=== PATIENT | male | born 1965 | race Two or more races ===

== ENCOUNTER 2021-12-24 12:13 | Emergency (ER) | payer OTHER, SELFPAY ==
--- NOTE | ~2021-12-24 | XR_ITS ---
EXAMINATION: XR FOOT, RIGHT CLINICAL INFORMATION: Pain wound COMPARISON: None TECHNIQUE: AP, lateral, and oblique views of the right foot. FINDINGS: No acute visible fracture or dislocation. Multi joint degenerative changes greatest at the first metatarsal phalangeal joint with joint space narrowing, subchondral cystic changes, sclerosis, and periarticular osteophyte formation. Joint spaces and alignment are otherwise maintained. Soft tissues are unremarkable. XR/XR foot RT min 3V IMPRESSION: 1. No acute visible fracture or dislocation. 2. Multi joint degenerative changes greatest at the first metatarsal phalangeal joint.
[2021-12-24 14:04] VITALS: BP 179/101; PULSE 76; RESP 18; TEMP 37; O2SAT 96; BMI 66.2
--- NOTE | 2021-12-24 15:05 | ED.WOUNDLAC ---
HPI - Wound/Laceration General Chief Complaint: Wound/Laceration Stated Complaint: feet infection Time Seen by Provider: 12/24/21 14:58 Source: patient Mode of arrival: ambulatory Limitations: no limitations History of Present Illness HPI narrative: Patient presents to the emergency department for evaluation of pain and wound to his right foot x2 days. He states that while he was at work with his shoe on he began to notice pain, when he took his shoe off he noticed that it was red and swollen. There is a wound to the base of his 3rd toe. He denies any history of diabetes. He states that often when he gets any type of infection to his feet or hands it is typical to get very swollen and red. Denies fevers, chills, numbness or tingling to the foot or leg, denies known injury to the foot, denies known bite. Related Data Previous Rx's Medication Instructions Recorded tamsulosin 0.4 mg capsule 0.4 mg PO BEDTIME 90 Days #90 cap 12/07/21 cephalexin 500 mg capsule 500 mg PO QID 7 Days #28 cap 12/24/21 doxycycline hyclate 100 mg tablet 100 mg PO BID 7 Days #14 tab 12/24/21 Allergies Allergy/AdvReac Type Severity Reaction Status Date / Time No Known Allergies Allergy Verified 12/07/21 09:10 Review of Systems Review of Systems: Constitutional: No weight loss, fever, chills, weakness or fatigue. Skin: Positive wound on foot Cardiovascular: No chest pain, chest pressure or chest discomfort. No palpitations or pedal edema. Respiratory: No shortness of breath, cough or sputum production. Gastrointestinal: No anorexia, nausea, vomiting or diarrhea. No abdominal pain Genitourinary: No burning micturition. No urinary frequency or incontinence. Musculoskeletal: Positive foot pain Neurologic: No numbness. No tingling. Sensation is normal. Yes all other systems are reviewed and are negative [facility] Past Medical History Attestation statement: The following information was validated with the patient. Source: old records reviewed Medical History BPH (benign prostatic hyperplasia) Cataract Colon polyps History of hypertension Overweight (BMI 25.0-29.9) Renal calculi Surgical History H/O lithotripsy Family History Family History Mother Mental health disorder Father Hypertension Dialysis complication Social History Social History Housing: Apartment Alcohol intake: current Alcohol intake frequency: holidays/special occasions only Alcohol type: beer and hard liquor Patient Tobacco Use Status: Former Tobacco user Tobacco use type: Cigarette e-Cigarette/Vaping Use: Never Used Second Hand Smoke Exposure: No Advance Directives: No Advance Directives Information Provided: No service: No Current occupational status: employed Current occupational exposures/hazards: No Cognitive needs: No Hearing needs: No Vision needs: Yes Physical Exam Vital Signs: Vital Signs: Last Vital Signs Temp 98.6 F 12/24/21 14:04 Pulse 76 12/24/21 14:04 Resp 18 12/24/21 14:04 BP 172/87 H 12/24/21 16:09 Pulse Ox 96 12/24/21 14:04 BMI result Body Mass Index 66.2 Vital signs have been reviewed and appeared to be correct. Hypertensive? Heart rate normal.? Respiration rate normal. Temperature normal.? Oxygen saturation normal. Appearance: Alert.?Oriented to person, place and time. No acute distress.?Normal affect. Eyes: Pupils equal, round and reactive to light.? ENT: Pharynx normal.?? Neck: Normal inspection.? Neck supple.?? CVS: Heart sounds normal. Normal heart rate and rhythm.? Pulses normal.?? Respiratory: No respiratory distress.? Lung sounds clear to auscultation bilaterally?? Abdomen: Soft and non-tender. Normoactive bowel sounds. No pulsatile mass.?? Skin: Skin warm and dry.? Normal skin color.? Normal skin turgor.?? Extremities: No lower extremity edema.? No calf ttp? right dorsal foot, base of 3rd digit over metatarsal 0.5 cm wound, surrounding erythema, skin tissue between 2nd and 3rd digit is macerated. Neuro: Moves all extremities spontaneously. Sensation intact bilaterally. CN II-XII intact. No focal neuro deficits. Ambulates with normal steady gait. Course Course Course Narrative: Patient is a 56-year-old male with a past medical history of hypertension, BPH, cataracts, and renal calculi. He presents emergency department for evaluation of pain and a wound on his right foot. X-ray obtained reveals no acute osseous abnormality, not consistent with osteomyelitis at this time. No history of diabetes. Not consistent with septic arthritis. He is well-appearing, ambulatory with a steady gait, hemodynamically stable. Physical exam concerning for cellulitis surrounding wound, discussed this with patient, advised treatment with antibiotic will cover with doxycycline and Keflex. Discussed reasons to return back to the emergency department, advised to follow-up with primary care provider within 5-7 days to assure that this is healing. MDM - Wound/Laceration Medical Records Attestation: I reviewed the patient's medical records. Imaging Data XR foot: Radiologist's impression: FINDINGS: No acute visible fracture or dislocation. Multi joint degenerative changes greatest at the first metatarsal phalangeal joint with joint space narrowing, subchondral cystic changes, sclerosis, and periarticular osteophyte formation. Joint spaces and alignment are otherwise maintained. Soft tissues are unremarkable.? XR/XR foot RT min 3V IMPRESSION: 1.? No acute visible fracture or dislocation. 2.? Multi joint degenerative changes greatest at the first metatarsal phalangeal joint. Discharge Plan Discharge Clinical Impression: Cellulitis Patient Disposition: Home, Self-Care Instructions: Cellulitis (ED) Additional Instructions: You have been given a new prescription for antibiotics doxycycline and Keflex for treatment of the infection on your foot. Please complete the entire course of these antibiotics. Contact your primary care provider to schedule a follow-up visit within 5-7 days to ensure that this is improving. You should return to the emergency department with any new or worsening symptoms or concerns. If the redness and swelling becomes worse, you develop fevers or shaking chills, numbness or tingling to your foot you should come back to the emergency department. Prescriptions: New doxycycline hyclate 100 mg tablet 100 mg PO BID 7 Days Qty: 14 0RF cephalexin 500 mg capsule 500 mg PO QID 7 Days Qty: 28 0RF No Action tamsulosin 0.4 mg capsule 0.4 mg PO BEDTIME 90 Days Qty: 90 1RF Referrals: Isamar Diaz MD [Primary Care Provider] - 5 days Stand Alone Forms: Work/School Release
[2021-12-24] MEDS: Ibuprofen 600 MG TABLET PO (16:02)
[2021-12-24] MEDS: Acetaminophen 325 MG TABLET 975 MG PO (16:02)
[2021-12-24 16:09] VITALS: BP 172/87
== END 2021-12-24 16:50 | disposition home or self-care (01) ==
PROVIDERS: Emergency Provider Emergency Medicine; PCP Internal Medicine
DX: L03.115 Cellulitis of right lower limb (principal); S91.301A Unspecified open wound, right foot, initial encounter; I10 Essential (primary) hypertension; X58.XXXA Exposure to other specified factors, initial encounter; Y93.9 Activity, unspecified; Y92.9 Unspecified place or not applicable; Y99.9 Unspecified external cause status
CPT/HCPCS: 73630; 99283

== ENCOUNTER 2022-01-20 15:05 | Outpatient (REF) | payer OTHER, SELFPAY ==
--- NOTE | ~2022-01-20 | US_ITS ---
EXAMINATION: US RETROPERITONEAL LIMITED (RENAL ONLY) CLINICAL INFORMATION: Calculus of kidney. COMPARISON: None TECHNIQUE: Real-time imaging of the kidneys. FINDINGS: RIGHT KIDNEY: 11.0 x 5.5 x 5.5 cm (SAG x AP x TRV). The kidney is normal in size, contour, and echogenicity. Renal cortical thickness is normal. No calculi or focal parenchymal lesions. No hydronephrosis. There is punctate calcification with no twinkle artifact in the upper pole. It measures 0.5 x 0.3 cm. LEFT KIDNEY: 11.0 x 5.8 x 5.2 cm (SAG x AP x TRV). The kidney is normal in size, contour, and echogenicity. Renal cortical thickness is normal. No calculi or focal parenchymal lesions. No hydronephrosis. There is punctate calcification seen with no twinkle. US/US renal BI IMPRESSION: Bilateral punctate renal calcifications. No hydronephrosis.
== END 2022-01-20 15:06 | disposition home or self-care (01) ==
LOC: HO.US 15:05
PROVIDERS: PCP Internal Medicine; Visit Provider Internal Medicine
DX: N20.0 Calculus of kidney (principal)
CPT/HCPCS: 76775

== ENCOUNTER → 2022-02-05 08:56 | Outpatient (REF) | payer OTHER, SELFPAY ==
--- NOTE | 2022-02-05 09:05 | ECG_ITS ---
Test Reason : PREOP Blood Pressure : / mmHG Vent. Rate : 068 BPM Atrial Rate : 068 BPM P-R Int : 144 ms QRS Dur : 088 ms QT Int : 390 ms P-R-T Axes : 077 057 043 degrees QTc Int : 414 ms Sinus rhythm with occasional Premature ventricular complexes Otherwise normal ECG No previous ECGs available Referred By: Isamar White Electronically Signed By:TYLER LAMAR MD
[2022-02-05 09:22] LABS: MANUAL DIFF FLAG NO
[2022-02-05 09:31] LABS: Basophils Percent Auto 0.4 % (0-2); Eosinophils Absolute Auto 0.2 X10*3/uL (0.0-0.4); Eosinophils Percent Auto 1.8 % (0-4); Hematocrit 44.6 % (42.0-52.0); Hemoglobin 14.9 g/dl (14.0-18.0); Imm Gran Abs Auto 0.04 X10*3/uL (0.00-0.03); Imm Gran Pct Auto 0.4 % (0.0-0.4); Lymphocytes Absolute Auto 2.2 X10*3/uL (1.2-4.9); Lymphocytes Percent Auto 21.9 % (20-40); Mean Corpuscular HGB Conc 33.4 g/dl (31.0-36.0); Mean Corpuscular Hemoglobin 29.3 pg (27.0-33.0); Mean Corpuscular Volume 87.6 fL (80.0-98.0); Mean Platelet Volume 9.4 fL (9.4-12.4); Monocytes Absolute Auto 0.8 X10*3/uL (0.1-1.2); Monocytes Percent Auto 7.6 % (2-11); Neutrophils Absolute Auto 6.7 x10*3/uL (2.0-8.3); Neutrophils Percent Auto 67.9 % (45-73); Platelet Count 281 X10*3/uL (160-400); Red Blood Count 5.09 X10*6/uL (4.60-5.80); Red Cell Distribution Width 12.5 % (11.0-16.0); White Blood Count 9.8 X10*3/uL (4.8-10.8)
[2022-02-05 10:14] LABS: Alanine Aminotransferase 31 U/L (0-40); Albumin Level 4.1 g/dL (3.5-5.0); Alkaline Phosphatase 75 U/L (39-117); Anion Gap 11 (12-20); Aspartate Amino Transferase 24 U/L (5-37); Bilirubin Total 0.4 mg/dL (0.0-1.0); Blood Urea Nitrogen 10 mg/dL (9-16); Calcium 8.9 mg/dL (8.4-10.2); Carbon Dioxide 23 mmol/L (22-29); Chloride 106 mmol/L (96-108); Cholesterol 156 mg/dL; Estimated Glomerular Filt Rate > 60; Glucose Fasting 88 mg/dL (60-99); HDL Cholesterol 43 mg/dL; LDL Cholesterol Calculated 101 mg/dl; Potassium 4.1 mmol/L (3.3-5.1); Sodium 136 mmol/L (135-145); Total Protein 7.2 g/dL (6.5-8.0); Triglycerides 61 mg/dL
[2022-02-05 10:37] LABS: Thyroid Stimulating Hormone 1.03 uIU/mL (0.32-4.0)
== END ==
LOC: HO.CARD 08:56
PROVIDERS: PCP Internal Medicine; Visit Provider Internal Medicine
DX: D64.9 Anemia, unspecified (principal); E66.3 Overweight; Z86.79 Personal history of other diseases of the circulatory system
CPT/HCPCS: 36415; 80053; 80061; 84443; 85025; 93005

== ENCOUNTER → 2022-09-07 15:23 | Outpatient (BNVA) | payer OTHER, SELFPAY | PROVIDERS: PCP Internal Medicine; Visit Provider Urology | DX: N40.0 Benign prostatic hyperplasia without lower urinary tract symptoms (principal) | CPT/HCPCS: 51798; 99202 ==

== ENCOUNTER 2022-09-14 09:56 | Day surgery (SDC) | payer OTHER, SELFPAY ==
[2022-09-14 10:10] VITALS: BMI 32.5
[2022-09-14] MEDS: Lactated Ringers 1,000 ML 50 ML IVCONT (10:17)
--- NOTE | 2022-09-14 11:19 | P.CONAN_ITS ---
[facility] Active Problems Active Problems: All Active Problems (Updated 08/26/22 @ 13:49 by Isamar White MD) Pre-operative clearance (Acute) Physical exam (Acute) Essential hypertension (Acute) Screen for colon cancer (Acute) Mild recurrent major depression (Acute) Obese (Acute) BPH (benign prostatic hyperplasia) (Acute) Cataract (Acute) Renal calculi (Acute) Colon polyps (Acute) Overweight (BMI 25.0-29.9) (Acute) Past Medical History Medical History BPH (benign prostatic hyperplasia) Cataract Colon polyps History of hypertension Overweight (BMI 25.0-29.9) Renal calculi Family History Family History Mother Mental health disorder Father Hypertension Dialysis complication Family history of problems with anesthesia: No Surgical History Surgical History H/O colonoscopy H/O lithotripsy Social History Social History Housing: Apartment Alcohol intake: current Alcohol intake frequency: holidays/special occasions only Alcohol type: beer and hard liquor Patient Tobacco Use Status: Former Tobacco user Tobacco use type: Cigarette e-Cigarette/Vaping Use: Never Used Second Hand Smoke Exposure: No Substance Use Frequency: Daily Are you DNR?: No Advance Directives: No Advance Directives Information Provided: Yes Nutrition Risks: No Nutritional Risk service: No Current occupational status: employed Current occupational exposures/hazards: No Cognitive needs: No Hearing needs: No Vision needs: Yes Meds Allergies Allergy/AdvReac Type Severity Reaction Status Date / Time No Known Allergies Allergy Verified 08/26/22 13:36 Active Medications: Current Medications Lactated Ringer's (Lr) 1,000 mls @ 50 mls/hr IVCONT .Q20H GEGE Last Admin: 09/14/22 10:17 Dose: 50 mls/hr Exam Exam Date and Time: September 14, 2022 1119 Height,Weight and Vital Signs: Height 5 ft 4 in Weight 86.183 kg Airway Mallampati Class: II TM Dist: >3cm Neck ROM: Full Heart: RRR Lungs: CTA Assessment and Plan Final Anesthetic Review Family History of Problems with Anesthesia: No ASA Class: II Final Preanesthetic Review: Meds/Deongs Chart Reviewed and Consent Obtained/Reviewed Patient Risk: Low Procedure Risk: Low Anesthetic Plan Anesthetic Plan: MAC: Disposition: Standard PACU
[2022-09-14 11:29] VITALS: BP 116/64; PULSE 76; RESP 18; TEMP 36.4; O2SAT 95
--- NOTE | 2022-09-14 11:30 | PC.NURSE ---
Many attempts were completed for IV access by RN's and Dr. Al. Dr. Cardenas placed the IV via ultrasound at bedside. Patient stated that this is normal for him, my cataract surgery was cancelled in February after they tried 20 times. Patient educated to inform hospital staff that ultrasound was used to gain IV access today.
--- NOTE | 2022-09-14 11:36 | MHC.SHP ---
Pre-Procedural Eval Section A Date of Service: 09/14/22 Section B Chief Complaint: screening Details of Present Illness: see H&P no changes Relevant Family History (Specify if Yes): No Relevant Social History: None Present Medications: see Short Stay Collaborative assessment Medical History: No relevant PMH History of Previous Operations: No relevant previous surgery Allergies: Allergies Allergy/AdvReac Type Severity Reaction Status Date / Time No Known Allergies Allergy Verified 08/26/22 13:36 Review of Systems Sugical H&P ROS: Negative: Constitution, Cardiovascular, Respiratory, Neurological, Psychiatric, Hem-Onc, Allergic/Immunologic, Gastrointestinal, Genitourinary, Musculoskeletal, Integumentary, Endocrine and Eyes/Ears/Nose/Throat Exam Surgical H&P Exam: Normal: HEENT, Normal: Heart, Normal: Lungs, Normal: Extremities, Normal: Abdomen, Normal: Skin and Normal: Neurological Plan Diagnosis/Plan: Unchanged I have reviewed the history and physical and performed a pertinent physical examination on my patient. No changes have occurred unless specified. Time Spent With Patient Time: Total time managing care of this patient today ____ minutes.
--- NOTE | 2022-09-14 11:57 | HO.ANESPROP2 ---
[facility] Active Problems Active Problems: All Active Problems (Updated 08/26/22 @ 13:49 by Isamar White MD) Pre-operative clearance (Acute) Physical exam (Acute) Essential hypertension (Acute) Screen for colon cancer (Acute) Mild recurrent major depression (Acute) Obese (Acute) BPH (benign prostatic hyperplasia) (Acute) Cataract (Acute) Renal calculi (Acute) Colon polyps (Acute) Overweight (BMI 25.0-29.9) (Acute) Past Medical History Medical History BPH (benign prostatic hyperplasia) Cataract Colon polyps History of hypertension Overweight (BMI 25.0-29.9) Renal calculi Family History Family History Mother Mental health disorder Father Hypertension Dialysis complication Family history of problems with anesthesia: No Surgical History Surgical History H/O colonoscopy H/O lithotripsy Social History Social History Housing: Apartment Alcohol intake: current Alcohol intake frequency: holidays/special occasions only Alcohol type: beer and hard liquor Patient Tobacco Use Status: Former Tobacco user Tobacco use type: Cigarette e-Cigarette/Vaping Use: Never Used Second Hand Smoke Exposure: No Substance Use Frequency: Daily Are you DNR?: No Advance Directives: No Advance Directives Information Provided: Yes Nutrition Risks: No Nutritional Risk service: No Current occupational status: employed Current occupational exposures/hazards: No Cognitive needs: No Hearing needs: No Vision needs: Yes Meds Allergies Allergy/AdvReac Type Severity Reaction Status Date / Time No Known Allergies Allergy Verified 08/26/22 13:36 Active Medications: Current Medications Lactated Ringer's (Lr) 1,000 mls @ 50 mls/hr IVCONT .Q20H GEGE Last Admin: 09/14/22 10:17 Dose: 50 mls/hr Exam Exam Date and Time: September 14, 2022 1157 Height,Weight and Vital Signs: Height 5 ft 4 in Weight 86.183 kg Last Vital Signs Temp 97.5 F 09/14/22 11:29 Pulse 76 09/14/22 11:29 Resp 18 09/14/22 11:29 BP 116/64 09/14/22 11:29 Pulse Ox 95 09/14/22 11:29 O2 Del Method 09/14/22 11:29 Airway Mallampati Class: III TM Dist: >3cm Assessment and Plan Final Anesthetic Review Family History of Problems with Anesthesia: No ASA Class: II Final Preanesthetic Review: Meds/Allgs Chart Reviewed and Consent Obtained/Reviewed Patient Risk: Low Procedure Risk: Low Anesthetic Plan Anesthetic Plan: MAC: Disposition: Standard PACU
--- NOTE | 2022-09-14 12:06 | PM.OP ---
Brief Operative Note Date of Service: 09/14/22 Pre-op diagnosis: screening Post-op diagnosis: same Surgeon: Scott Yeboah Anesthesia: MAC Was an Resource Development Manager used for this Procedure?: No Estimated blood loss (mL): 2 Pathology: other Condition: stable Disposition: PACU
[2022-09-14 12:15] VITALS: BP 90/37; PULSE 86; RESP 16; TEMP 36.9; O2SAT 96
--- NOTE | 2022-09-14 12:20 | HO.POSTANES ---
Post Anesthesia Evaluation Post Anesthesia Evaluation Vital Signs: Vital Signs Temp Pulse Resp BP Pulse Ox O2 Del Method 09/14/22 11:29 97.5 F 76 18 116/64 95 Room Air Anesthesia: Monitored Mental Status: Awake Pain Control: Satisfactory Nausea/Vomiting: None Hydration: Adequate Anesthesia-Related Issues: No Anes. Related Issues
[2022-09-14 12:30] VITALS: BP 104/48; PULSE 71; RESP 16; O2SAT 96
[2022-09-14 12:45] VITALS: BP 110/59; PULSE 62; RESP 16; TEMP 36.6; O2SAT 95
--- NOTE | 2022-09-14 13:20 | PC.NURSE ---
Lidocaine was pulled from [facility]. Dr. Al used it to numb area SQ prior to IV insertion attempts by Dr. Al. Dr. Cardenas given leftover in bottle by author after ultrasound guided IV insertion.
--- NOTE | 2022-09-14 20:37 | OP_ITS ---
SURGEON: Scott Yeboah MD INDICATIONS: Colon cancer screening and prior history of adenomatous colon polyps. PREOPERATIVE DIAGNOSIS: POSTOPERATIVE DIAGNOSIS: PROCEDURE PERFORMED: Colonoscopy to the terminal ileum with biopsy. ESTIMATED BLOOD LOSS: COMPLICATIONS: ANESTHESIA: Monitored anesthesia care. ASSISTANTS: SPECIMENS: DESCRIPTION OF PROCEDURE: A history and physical was performed. The risks and benefits of the procedure were explained to the patient. Informed consent was obtained. The patient was placed in the left lateral decubitus position. A digital rectal exam was performed and it was found to be normal. The Olympus pediatric video colonoscope introduced into the rectum and advanced to the cecum without difficulty. The cecum was identified by translumination, palpation, and identification of the ileocecal valve. Examination was performed. The scope was removed. He tolerated the procedure well and was returned to the recovery area in stable condition. The procedure was performed on 09/14/2022. FINDINGS: The terminal ileum was examined and appeared normal. The visualized colonic mucosa was normal. The quality of the prep was good. In the cecum, was a less than 5 mm sessile polyp which was removed with a biopsy forceps. No other polyps were identified, and there was mild sigmoid diverticulosis. Retroflexed examination was normal. There was scattered diverticulosis throughout the colon. IMPRESSION: Colon polyp. RECOMMENDATIONS: Followup with biopsy results. MD DIOGO Kern/MELISA / [id number] MTDD
== END 2022-09-14 13:12 | disposition home or self-care (01) ==
PROVIDERS: PCP Internal Medicine; Visit Provider Internal Medicine Gastroenterology
PROC: 0DJD8ZZ Inspection of Lower Intestinal Tract, Via Natural or Artificial Opening Endoscopic (ICD-10-PCS; CPT 45378; principal; 2022-09-14 11:00)
DX: Z12.11 Encounter for screening for malignant neoplasm of colon (principal); Z86.010 Personal history of colon polyps; D12.0 Benign neoplasm of cecum; K57.30 Diverticulosis of large intestine without perforation or abscess without bleeding; K21.9 Gastro-esophageal reflux disease without esophagitis; N40.0 Benign prostatic hyperplasia without lower urinary tract symptoms; I10 Essential (primary) hypertension; F32.A Depression, unspecified; Z79.899 Other long term (current) drug therapy; Z87.442 Personal history of urinary calculi; Z87.891 Personal history of nicotine dependence
CPT/HCPCS: 45380; 88305

== ENCOUNTER 2022-10-18 12:49 | Outpatient (REF) | payer OTHER, SELFPAY ==
--- NOTE | ~2022-10-18 | US_ITS ---
EXAMINATION: US PELVIS LIMITED (BLADDER) CLINICAL INFORMATION: Poor urinary stream. COMPARISON: Ultrasound renal 01/20/2022. TECHNIQUE: Real-time imaging of the bladder. FINDINGS: BLADDER: Well distended and normal. Bilateral ureteral jets are demonstrated. Prevoid bladder volume is 249.8 mL. Postvoid bladder volume is 14.0 mL. Prostate volume is 27 mL. US/US bladder IMPRESSION: Post void volume of 14 mL. No discrete focal urinary bladder abnormality.
== END 2022-10-18 12:50 | disposition home or self-care (01) ==
LOC: HO.US 12:49
PROVIDERS: PCP Internal Medicine; Visit Provider Urology
DX: N40.0 Benign prostatic hyperplasia without lower urinary tract symptoms (principal); R39.12 Poor urinary stream
CPT/HCPCS: 76857

== ENCOUNTER → 2022-11-02 14:40 | Outpatient (REF) | payer OTHER, SELFPAY | LOC: HO.SL 14:40 | PROVIDERS: PCP Internal Medicine; Visit Provider Internal Medicine | DX: G47.33 Obstructive sleep apnea (adult) (pediatric) (principal) | CPT/HCPCS: 95806 ==

== ENCOUNTER → 2022-11-09 15:02 | Outpatient (BNVA) | payer OTHER, SELFPAY | PROVIDERS: PCP Internal Medicine; Visit Provider Urology | DX: N40.1 Benign prostatic hyperplasia with lower urinary tract symptoms (principal); R35.1 Nocturia | CPT/HCPCS: 52000; 99212 ==

== ENCOUNTER 2022-12-22 19:39 | Emergency (ER) | payer OTHER, SELFPAY ==
[2022-12-22 19:48] VITALS: BP 194/116; PULSE 84; RESP 18; O2SAT 94; BMI 32.2
--- NOTE | 2022-12-22 19:48 | ED.GENADULT ---
HPI - General Adult General Chief complaint: ETOH/Substance Use Stated complaint: narcotic use? Time Seen by Provider: 12/22/22 22:24 Related Data Previous Rx's Medication Instructions Recorded tamsulosin 0.4 mg capsule 0.4 mg PO BEDTIME 90 days #90 caps 06/05/22 bupropion HCl 150 mg 24 hr tablet, 150 mg PO QAM 90 days #90 tabs 08/26/22 extended release doxazosin 8 mg tablet 8 mg PO BEDTIME 30 days #30 tabs 09/07/22 finasteride 5 mg tablet 5 mg PO DAILY 30 days #30 tabs 09/07/22 lisinopril 20 mg tablet 20 mg PO DAILY 90 days #90 tabs 09/11/22 blood pressure monitor #1 ea 09/12/22 CPAP (CPAP Machine/Device) #1 ea 11/12/22 Allergies Allergy/AdvReac Type Severity Reaction Status Date / Time No Known Allergies Allergy Verified 11/09/22 15:25 PMFSH Past Medical History Medical History BPH (benign prostatic hyperplasia) Cataract Colon polyps History of hypertension Overweight (BMI 25.0-29.9) Renal calculi Surgical History H/O colonoscopy H/O lithotripsy Family History Family History Mother Mental health disorder Father Hypertension Dialysis complication Social History Social History Housing: Apartment Alcohol intake: never Patient Tobacco Use Status: Former Tobacco user Tobacco use type: Cigarette e-Cigarette/Vaping Use: Never Used Second Hand Smoke Exposure: No Use of substances other than those prescribed or required for medical reasons: Yes Substance Use Type: Opiates Substance Use Frequency: Recent Binge Last Used Substance: Just Prior to Admission Any prior treatment program specific to substance use: No Advance Directives: No Advance Directives Information Provided: Yes service: No Current occupational status: employed Current occupational exposures/hazards: No Cognitive needs: No Hearing needs: No Vision needs: Yes Physical Exam ED Vital Signs: BMI result Body Mass Index 32.2 Course Course Course Narrative: RME - 57 y/o male with history of obesity, JULIA, depression, BPH, HTN who presents to the ER feeling like he is going to after he used a small amount of a baggie of drugs he found on the street. He feels dizzy, weak, with a small amount of chest pain. He arrives to the ER diaphoretic and appears unwell. He is AAO x4. Plan: EKG, labs, to go back to treatment room now for monitoring Reevaluation(s) Reevaluation #1: see Dr. Weinberg's note for full evaluation and treatment Medical Decision Making Lab Data 12/22/22 20:15 12/22/22 20:15 Labs: Lab Results 12/22/22 12/22/22 12/22/22 Range/Units 20:15 20:15 20:15 WBC 16.1 H (4.8-10.8) X10*3/uL RBC 5.08 (4.60-5.80) X10*6/uL Hgb 15.0 (14.0-18.0) g/dl Hct 44.4 (42.0-52.0) % MCV 87.4 (80.0-98.0) fL MCH 29.5 (27.0-33.0) pg MCHC 33.8 (31.0-36.0) g/dl RDW 12.5 (11.0-16.0) % Plt Count 297 (160-400) X10*3/uL MPV 9.1 L (9.4-12.4) fL Immature Gran % (Auto) 0.6 H (0.0-0.4) % Neut % (Auto) 69.6 (45-73) % Lymph % (Auto) 21.1 (20-40) % [place] % (Auto) 6.8 (2-11) % Eos % (Auto) 1.4 (0-4) % Baso % (Auto) 0.5 (0-2) % Lymph # (Auto) 3.4 (1.2-4.9) X10*3/uL [place] # (Auto) 1.1 (0.1-1.2) X10*3/uL Eos # (Auto) 0.2 (0.0-0.4) X10*3/uL Baso # (Auto) 0.1 (0.0-0.2) X10*3/uL Abs Immat Gran (auto) 0.10 H (0.00-0.03) X10*3/uL Absolute Neuts (auto) 11.2 H (2.0-8.3) x10*3/uL Absolute Nucleated RBC 0.000 (0.0-0.012) X10*3/uL Nucleated RBC % (auto) 0.0 (0.0-0.2) /100WBC Sodium 142 (135-145) mmol/L Potassium 3.9 (3.3-5.1) mmol/L Chloride 104 (96-108) mmol/L Carbon Dioxide 24 (22-29) mmol/L Anion Gap 18 (12-20) BUN 15 (9-16) mg/dL Creatinine 0.92 (0.5-1.4) mg/dL Estim Creat Clear Calc 85.0 Estimated GFR > 60 Random Glucose 179 H (60-115) mg/dL Calcium 9.6 D (8.4-10.2) mg/dL Magnesium 2.2 (1.6-2.6) mg/dL Total Bilirubin 0.5 (0.0-1.0) mg/dL Direct Bilirubin 0.1 (0.0-0.5) mg/dL AST 29 (5-37) U/L ALT 36 (0-40) U/L Alkaline Phosphatase 68 (39-117) U/L Troponin I High Sens < 2.7 (<3.5-35.0) ng/L Total Protein 7.8 (6.5-8.0) g/dL Albumin 4.6 (3.5-5.0) g/dL Urine Color Urine Appearance Urine pH (5.0-9.0) Ur Specific [place] (1.005-1.025) Urine Protein (Neg-Trace) mg/dL Urine Glucose (UA) (Negative) mg/dL Urine Ketones (Negative) mg/dL Urine Blood (Negative) Urine Nitrite (Negative) Ur Leukocyte Esterase (Negative) Urine RBC (0-2) /HPF Urine WBC (0-5) /HPF Ur Squamous Epith Cells (0-2) /HPF Urine Bacteria (None Seen) Hyaline Casts (0-2) /LPF Salicylates < 5.0 L (15-30) mg/dL Urine Opiates Screen (Not Detect) Urine Fentanyl Screen (Not Detect) Acetaminophen < 17 (<30) mcg/mL Ur Barbiturates Screen (Not Detect) Ur Phencyclidine Scrn (Not Detect) Ur Amphetamines Screen (Not Detect) U Benzodiazepines Scrn (Not Detect) Urine Cocaine Screen (Not Detect) U Marijuana (THC) Screen (Not Detect) Ethyl Alcohol mg/dL 12/22/22 12/22/22 12/22/22 Range/Units 20:15 23:45 23:45 WBC (4.8-10.8) X10*3/uL RBC (4.60-5.80) X10*6/uL Hgb (14.0-18.0) g/dl Hct (42.0-52.0) % MCV (80.0-98.0) fL MCH (27.0-33.0) pg MCHC (31.0-36.0) g/dl RDW (11.0-16.0) % Plt Count (160-400) X10*3/uL MPV (9.4-12.4) fL Immature Gran % (Auto) (0.0-0.4) % Neut % (Auto) (45-73) % Lymph % (Auto) (20-40) % [place] % (Auto) (2-11) % Eos % (Auto) (0-4) % Baso % (Auto) (0-2) % Lymph # (Auto) (1.2-4.9) X10*3/uL [place] # (Auto) (0.1-1.2) X10*3/uL Eos # (Auto) (0.0-0.4) X10*3/uL Baso # (Auto) (0.0-0.2) X10*3/uL Abs Immat Gran (auto) (0.00-0.03) X10*3/uL Absolute Neuts (auto) (2.0-8.3) x10*3/uL Absolute Nucleated RBC (0.0-0.012) X10*3/uL Nucleated RBC % (auto) (0.0-0.2) /100WBC Sodium (135-145) mmol/L Potassium (3.3-5.1) mmol/L Chloride (96-108) mmol/L Carbon Dioxide (22-29) mmol/L Anion Gap (12-20) BUN (9-16) mg/dL Creatinine (0.5-1.4) mg/dL Estim Creat Clear Calc Estimated GFR Random Glucose (60-115) mg/dL Calcium (8.4-10.2) mg/dL Magnesium (1.6-2.6) mg/dL Total Bilirubin (0.0-1.0) mg/dL Direct Bilirubin (0.0-0.5) mg/dL AST (5-37) U/L ALT (0-40) U/L Alkaline Phosphatase (39-117) U/L Troponin I High Sens (<3.5-35.0) ng/L Total Protein (6.5-8.0) g/dL Albumin (3.5-5.0) g/dL Urine Color Yellow Urine Appearance Clear Urine pH 6.0 (5.0-9.0) Ur Specific [place] >= 1.030 H (1.005-1.025) Urine Protein 30 (1+) H (Neg-Trace) mg/dL Urine Glucose (UA) Negative (Negative) mg/dL Urine Ketones Negative (Negative) mg/dL Urine Blood Negative (Negative) Urine Nitrite Negative (Negative) Ur Leukocyte Esterase Negative (Negative) Urine RBC 0-2 (0-2) /HPF Urine WBC 0-5 (0-5) /HPF Ur Squamous Epith Cells 0-2 (0-2) /HPF Urine Bacteria None Seen (None Seen) Hyaline Casts 0-2 (0-2) /LPF Salicylates (15-30) mg/dL Urine Opiates Screen Not Detected (Not Detect) Urine Fentanyl Screen POSITIVE H (Not Detect) Acetaminophen (<30) mcg/mL Ur Barbiturates Screen Not Detected (Not Detect) Ur Phencyclidine Scrn Not Detected (Not Detect) Ur Amphetamines Screen Not Detected (Not Detect) U Benzodiazepines Scrn Not Detected (Not Detect) Urine Cocaine Screen Not Detected (Not Detect) U Marijuana (THC) Screen POSITIVE H (Not Detect) Ethyl Alcohol < 10 mg/dL Discharge Plan Discharge Clinical Impression: Fentanyl poisoning of undetermined intent Patient Disposition: Home, Self-Care Instructions: Opioid Use Disorder (ED) Additional Instructions: Do not use opiates/fentanyl Prescriptions: No Action tamsulosin 0.4 mg capsule 0.4 mg PO BEDTIME 90 Days Qty: 90 1RF lisinopril 20 mg tablet 20 mg PO DAILY 90 Days Qty: 90 0RF (DME) blood pressure monitor Kit See Rx Instructions .Route Qty: 1 0RF Rx Instructions: As directed (DME) CPAP Machine/Device Device See Rx Instructions .Route Qty: 1 0RF Rx Instructions: autoPAP mode 6-20 cmH2O bupropion HCl 150 mg tablet extended release 24 hr 150 mg PO QAM 90 Days Qty: 90 1RF doxazosin 8 mg tablet 8 mg PO BEDTIME 30 Days Qty: 30 1RF finasteride 5 mg tablet 5 mg PO DAILY 30 Days Qty: 30 1RF Interventions: ED Discharge Assessment Last Done: 12/23/22 01:16 Discharge Date/Time: 12/23/22 01:16
--- NOTE | 2022-12-22 19:49 | ECG_ITS ---
Test Reason : chest pain Blood Pressure : / mmHG Vent. Rate : 070 BPM Atrial Rate : 070 BPM P-R Int : 150 ms QRS Dur : 090 ms QT Int : 398 ms P-R-T Axes : 059 041 053 degrees QTc Int : 429 ms Normal sinus rhythm with sinus arrhythmia Normal ECG When compared with ECG of 05-FEB-2022 09:02, Premature ventricular complexes are no longer Present Referred By: Luly Fernandes Electronically Signed By:JUANIS LAGUNAS
[2022-12-22 20:21] LABS: MANUAL DIFF FLAG NO
[2022-12-22 20:22] LABS: Basophils Absolute Auto 0.1 X10*3/uL (0.0-0.2); Basophils Percent Auto 0.5 % (0-2); Eosinophils Absolute Auto 0.2 X10*3/uL (0.0-0.4); Eosinophils Percent Auto 1.4 % (0-4); Hematocrit 44.4 % (42.0-52.0); Imm Gran Pct Auto 0.6 % (0.0-0.4); Lymphocytes Absolute Auto 3.4 X10*3/uL (1.2-4.9); Lymphocytes Percent Auto 21.1 % (20-40); Mean Corpuscular HGB Conc 33.8 g/dl (31.0-36.0); Mean Corpuscular Hemoglobin 29.5 pg (27.0-33.0); Mean Corpuscular Volume 87.4 fL (80.0-98.0); Mean Platelet Volume 9.1 fL (9.4-12.4); Monocytes Absolute Auto 1.1 X10*3/uL (0.1-1.2); Monocytes Percent Auto 6.8 % (2-11); Neutrophils Absolute Auto 11.2 x10*3/uL (2.0-8.3); Neutrophils Percent Auto 69.6 % (45-73); Platelet Count 297 X10*3/uL (160-400); Red Blood Count 5.08 X10*6/uL (4.60-5.80); Red Cell Distribution Width 12.5 % (11.0-16.0); White Blood Count 16.1 X10*3/uL (4.8-10.8)
[2022-12-22 20:38] LABS: Acetaminophen LAB < 17 mcg/mL (<30); Alanine Aminotransferase 36 U/L (0-40); Albumin Level 4.6 g/dL (3.5-5.0); Alkaline Phosphatase 68 U/L (39-117); Anion Gap 18 (12-20); Aspartate Amino Transferase 29 U/L (5-37); Bilirubin Direct 0.1 mg/dL (0.0-0.5); Bilirubin Total 0.5 mg/dL (0.0-1.0); Blood Urea Nitrogen 15 mg/dL (9-16); Calcium 9.6 mg/dL (8.4-10.2); Carbon Dioxide 24 mmol/L (22-29); Chloride 104 mmol/L (96-108); Estimated Glomerular Filt Rate > 60; Ethanol < 10 mg/dL; Glucose Random 179 mg/dL (60-115); Magnesium 2.2 mg/dL (1.6-2.6); Potassium 3.9 mmol/L (3.3-5.1); Salicylate < 5.0 mg/dL (15-30); Sodium 142 mmol/L (135-145); Total Protein 7.8 g/dL (6.5-8.0)
[2022-12-22 20:48] LABS: Troponin-I High Sensitivity < 2.7 ng/L (<3.5-35.0)
[2022-12-22 21:35] VITALS: BP 145/77; PULSE 75; RESP 14; O2SAT 92
--- NOTE | 2022-12-22 23:40 | ED_ITS ---
HPI - General Adult General Chief complaint: ETOH/Substance Use Stated complaint: narcotic use? Time Seen by Provider: 12/22/22 22:24 Source: patient Mode of arrival: ambulatory Limitations: no limitations History of Present Illness HPI narrative: Patient apparently was walking found small plastic bag containing white border snorted that felt funny after that and dizzy patient knew it was a drug denies using it otherwise came here to recheck at this time patient is feeling back to normal Related Data Previous Rx's Medication Instructions Recorded tamsulosin 0.4 mg capsule 0.4 mg PO BEDTIME 90 days #90 caps 06/05/22 bupropion HCl 150 mg 24 hr tablet, 150 mg PO QAM 90 days #90 tabs 08/26/22 extended release doxazosin 8 mg tablet 8 mg PO BEDTIME 30 days #30 tabs 09/07/22 finasteride 5 mg tablet 5 mg PO DAILY 30 days #30 tabs 09/07/22 lisinopril 20 mg tablet 20 mg PO DAILY 90 days #90 tabs 09/11/22 blood pressure monitor #1 ea 09/12/22 CPAP (CPAP Machine/Device) #1 ea 11/12/22 Allergies Allergy/AdvReac Type Severity Reaction Status Date / Time No Known Allergies Allergy Verified 11/09/22 15:25 Review of Systems Review of Systems: Yes all other systems are reviewed and are negative [facility] Past Medical History Medical History BPH (benign prostatic hyperplasia) Cataract Colon polyps History of hypertension Overweight (BMI 25.0-29.9) Renal calculi Surgical History H/O colonoscopy H/O lithotripsy Family History Family History Mother Mental health disorder Father Hypertension Dialysis complication Social History Social History Housing: Apartment Alcohol intake: never Patient Tobacco Use Status: Former Tobacco user Tobacco use type: Cigarette e-Cigarette/Vaping Use: Never Used Second Hand Smoke Exposure: No Use of substances other than those prescribed or required for medical reasons: Yes Substance Use Type: Opiates Substance Use Frequency: Recent Binge Last Used Substance: Just Prior to Admission Any prior treatment program specific to substance use: No Advance Directives: No Advance Directives Information Provided: Yes service: No Current occupational status: employed Current occupational exposures/hazards: No Cognitive needs: No Hearing needs: No Vision needs: Yes Physical Exam ED Vital Signs: Vital Signs - 24 hr 12/22/22 19:48 12/22/22 21:35 12/22/22 23:59 Pulse Rate 84 75 77 Respiratory Rate 18 14 17 Blood Pressure 194/116 H 145/77 H 159/75 H Pulse Oximetry 94 92 95 Oxygen Delivery Method Room Air Room Air Room Air BMI result Body Mass Index 32.2 Appearance: Alert. Oriented X3. No acute distress. Eyes: PERRLA, No Nystagmus ENT: Pharynx normal. Oral Mucosa moist Neck: Normal inspection. Neck supple. CVS: Normal heart rate and rhythm. Pulses normal. Respiratory: No respiratory distress. Equal air entry bilateral, no wheezing/rales/rhonchi Abdomen: Soft and nontender. Bowel sounds are present, no mass palpable, no CVA tenderness Skin: Skin warm and dry. Normal skin color. Normal skin turgor. Extremities: No lower extremity edema. No calf tenderness Neuro: Oriented X 3. No motor deficit. No sensory deficit.No cerebellar signs , cranial nerves II-XII intact Medical Decision Making Medical Decision Making MDM Narrative: Patient drug screen showed positive for THC and fentanyl likely the cause of the symptoms patient advised not to use drugs Lab Data [facility] Lab Attestation statement: I reviewed the patient's lab results. 12/22/22 20:15 12/22/22 20:15 Labs: Lab Results 12/22/22 12/22/22 12/22/22 Range/Units 20:15 20:15 20:15 WBC 16.1 H (4.8-10.8) X10*3/uL RBC 5.08 (4.60-5.80) X10*6/uL Hgb 15.0 (14.0-18.0) g/dl Hct 44.4 (42.0-52.0) % MCV 87.4 (80.0-98.0) fL MCH 29.5 (27.0-33.0) pg MCHC 33.8 (31.0-36.0) g/dl RDW 12.5 (11.0-16.0) % Plt Count 297 (160-400) X10*3/uL MPV 9.1 L (9.4-12.4) fL Immature Gran % (Auto) 0.6 H (0.0-0.4) % Neut % (Auto) 69.6 (45-73) % Lymph % (Auto) 21.1 (20-40) % [place] % (Auto) 6.8 (2-11) % Eos % (Auto) 1.4 (0-4) % Baso % (Auto) 0.5 (0-2) % Lymph # (Auto) 3.4 (1.2-4.9) X10*3/uL [place] # (Auto) 1.1 (0.1-1.2) X10*3/uL Eos # (Auto) 0.2 (0.0-0.4) X10*3/uL Baso # (Auto) 0.1 (0.0-0.2) X10*3/uL Abs Immat Gran (auto) 0.10 H (0.00-0.03) X10*3/uL Absolute Neuts (auto) 11.2 H (2.0-8.3) x10*3/uL Absolute Nucleated RBC 0.000 (0.0-0.012) X10*3/uL Nucleated RBC % (auto) 0.0 (0.0-0.2) /100WBC Sodium 142 (135-145) mmol/L Potassium 3.9 (3.3-5.1) mmol/L Chloride 104 (96-108) mmol/L Carbon Dioxide 24 (22-29) mmol/L Anion Gap 18 (12-20) BUN 15 (9-16) mg/dL Creatinine 0.92 (0.5-1.4) mg/dL Estim Creat Clear Calc 85.0 Estimated GFR > 60 Random Glucose 179 H (60-115) mg/dL Calcium 9.6 D (8.4-10.2) mg/dL Magnesium 2.2 (1.6-2.6) mg/dL Total Bilirubin 0.5 (0.0-1.0) mg/dL Direct Bilirubin 0.1 (0.0-0.5) mg/dL AST 29 (5-37) U/L ALT 36 (0-40) U/L Alkaline Phosphatase 68 (39-117) U/L Troponin I High Sens < 2.7 (<3.5-35.0) ng/L Total Protein 7.8 (6.5-8.0) g/dL Albumin 4.6 (3.5-5.0) g/dL Urine Color Urine Appearance Urine pH (5.0-9.0) Ur Specific [place] (1.005-1.025) Urine Protein (Neg-Trace) mg/dL Urine Glucose (UA) (Negative) mg/dL Urine Ketones (Negative) mg/dL Urine Blood (Negative) Urine Nitrite (Negative) Ur Leukocyte Esterase (Negative) Urine RBC (0-2) /HPF Urine WBC (0-5) /HPF Ur Squamous Epith Cells (0-2) /HPF Urine Bacteria (None Seen) Hyaline Casts (0-2) /LPF Salicylates < 5.0 L (15-30) mg/dL Urine Opiates Screen (Not Detect) Urine Fentanyl Screen (Not Detect) Acetaminophen < 17 (<30) mcg/mL Ur Barbiturates Screen (Not Detect) Ur Phencyclidine Scrn (Not Detect) Ur Amphetamines Screen (Not Detect) U Benzodiazepines Scrn (Not Detect) Urine Cocaine Screen (Not Detect) U Marijuana (THC) Screen (Not Detect) Ethyl Alcohol mg/dL 12/22/22 12/22/22 12/22/22 Range/Units 20:15 23:45 23:45 WBC (4.8-10.8) X10*3/uL RBC (4.60-5.80) X10*6/uL Hgb (14.0-18.0) g/dl Hct (42.0-52.0) % MCV (80.0-98.0) fL MCH (27.0-33.0) pg MCHC (31.0-36.0) g/dl RDW (11.0-16.0) % Plt Count (160-400) X10*3/uL MPV (9.4-12.4) fL Immature Gran % (Auto) (0.0-0.4) % Neut % (Auto) (45-73) % Lymph % (Auto) (20-40) % [place] % (Auto) (2-11) % Eos % (Auto) (0-4) % Baso % (Auto) (0-2) % Lymph # (Auto) (1.2-4.9) X10*3/uL [place] # (Auto) (0.1-1.2) X10*3/uL Eos # (Auto) (0.0-0.4) X10*3/uL Baso # (Auto) (0.0-0.2) X10*3/uL Abs Immat Gran (auto) (0.00-0.03) X10*3/uL Absolute Neuts (auto) (2.0-8.3) x10*3/uL Absolute Nucleated RBC (0.0-0.012) X10*3/uL Nucleated RBC % (auto) (0.0-0.2) /100WBC Sodium (135-145) mmol/L Potassium (3.3-5.1) mmol/L Chloride (96-108) mmol/L Carbon Dioxide (22-29) mmol/L Anion Gap (12-20) BUN (9-16) mg/dL Creatinine (0.5-1.4) mg/dL Estim Creat Clear Calc Estimated GFR Random Glucose (60-115) mg/dL Calcium (8.4-10.2) mg/dL Magnesium (1.6-2.6) mg/dL Total Bilirubin (0.0-1.0) mg/dL Direct Bilirubin (0.0-0.5) mg/dL AST (5-37) U/L ALT (0-40) U/L Alkaline Phosphatase (39-117) U/L Troponin I High Sens (<3.5-35.0) ng/L Total Protein (6.5-8.0) g/dL Albumin (3.5-5.0) g/dL Urine Color Yellow Urine Appearance Clear Urine pH 6.0 (5.0-9.0) Ur Specific [place] >= 1.030 H (1.005-1.025) Urine Protein 30 (1+) H (Neg-Trace) mg/dL Urine Glucose (UA) Negative (Negative) mg/dL Urine Ketones Negative (Negative) mg/dL Urine Blood Negative (Negative) Urine Nitrite Negative (Negative) Ur Leukocyte Esterase Negative (Negative) Urine RBC 0-2 (0-2) /HPF Urine WBC 0-5 (0-5) /HPF Ur Squamous Epith Cells 0-2 (0-2) /HPF Urine Bacteria None Seen (None Seen) Hyaline Casts 0-2 (0-2) /LPF Salicylates (15-30) mg/dL Urine Opiates Screen Not Detected (Not Detect) Urine Fentanyl Screen POSITIVE H (Not Detect) Acetaminophen (<30) mcg/mL Ur Barbiturates Screen Not Detected (Not Detect) Ur Phencyclidine Scrn Not Detected (Not Detect) Ur Amphetamines Screen Not Detected (Not Detect) U Benzodiazepines Scrn Not Detected (Not Detect) Urine Cocaine Screen Not Detected (Not Detect) U Marijuana (THC) Screen POSITIVE H (Not Detect) Ethyl Alcohol < 10 mg/dL Discharge Plan Discharge Clinical Impression: Fentanyl poisoning of undetermined intent Patient Disposition: Home, Self-Care Instructions: Opioid Use Disorder (ED) Additional Instructions: Do not use opiates/fentanyl Prescriptions: No Action tamsulosin 0.4 mg capsule 0.4 mg PO BEDTIME 90 Days Qty: 90 1RF lisinopril 20 mg tablet 20 mg PO DAILY 90 Days Qty: 90 0RF (DME) blood pressure monitor Kit See Rx Instructions .Route Qty: 1 0RF Rx Instructions: As directed (DME) CPAP Machine/Device Device See Rx Instructions .Route Qty: 1 0RF Rx Instructions: autoPAP mode 6-20 cmH2O bupropion HCl 150 mg tablet extended release 24 hr 150 mg PO QAM 90 Days Qty: 90 1RF doxazosin 8 mg tablet 8 mg PO BEDTIME 30 Days Qty: 30 1RF finasteride 5 mg tablet 5 mg PO DAILY 30 Days Qty: 30 1RF Interventions: ED Discharge Assessment Last Done: 12/23/22 01:16 Discharge Date/Time: 12/23/22 01:16
[2022-12-22 23:55] LABS: Appearance Urine Clear; Color Urine Yellow; Glucose Urine UA Negative (Negative); Leukocyte Esterase Urine Negative (Negative); Nitrite Urine Negative (Negative); Specific Gravity - Urine >= 1.030 (1.005-1.025); UMIC TRIGGER UACC YES; Urine Blood Negative (Negative); Urine Ketones Negative (Negative); Urine Protein 30 (1+) mg/dL (Neg-Trace)
[2022-12-22 23:59] VITALS: BP 159/75; PULSE 77; RESP 17; O2SAT 95
[2022-12-23] LABS: Bacteria Urine None Seen (None Seen); Hyaline Casts Urine 0-2 /LPF (0-2); RBC Urine 0-2 /HPF (0-2); Squamous Epithelial Cell Urine 0-2 /HPF (0-2); WBC Urine 0-5 /HPF (0-5)
[2022-12-23 00:08] LABS: Amphetamine Screen Urine Not Detected (Not Detect); Barbiturates, Urine Not Detected (Not Detect); Benzodiazepines Screen Urine Not Detected (Not Detect); Cannabinoid Screen Urine POSITIVE (Not Detect); Cocaine Screen Urine Not Detected (Not Detect); Fentanyl, urine POSITIVE (Not Detect); Opiate Screen Urine Not Detected (Not Detect); Phencyclidine Screen Urine Not Detected (Not Detect)
== END 2022-12-23 01:16 | disposition home or self-care (01) ==
PROVIDERS: Physician Assistant; Emergency Provider Internal Medicine; PCP Internal Medicine
DX: R42 Dizziness and giddiness (principal); T40.414A Poisoning by fentanyl or fentanyl analogs, undetermined, initial encounter; Y92.410 Unspecified street and highway as the place of occurrence of the external cause; I10 Essential (primary) hypertension; Z79.899 Other long term (current) drug therapy
CPT/HCPCS: 36415; 80048; 80076; 80143; 80179; 80307; 81001; 83735; 84484; 85025; 93005; 99283; 99284; 99285

== ENCOUNTER → 2023-01-13 09:50 | Outpatient (BNVA) | payer OTHER, SELFPAY | PROVIDERS: PCP Internal Medicine; Visit Provider Urology ==

== ENCOUNTER → 2023-01-27 14:24 | Outpatient (BNVA) | payer OTHER, SELFPAY | PROVIDERS: PCP Internal Medicine; Visit Provider Internal Medicine | DX: G47.33 Obstructive sleep apnea (adult) (pediatric) (principal); G47.34 Idiopathic sleep related nonobstructive alveolar hypoventilation; E66.9 Obesity, unspecified; Z68.32 Body mass index [BMI] 32.0-32.9, adult | CPT/HCPCS: 94010; 99202 ==

== ENCOUNTER 2023-02-07 07:23 | Day surgery (SDC) | payer OTHER, SELFPAY ==
[2023-02-03 11:42] VITALS: BMI 32.1
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
[2023-02-07] MEDS: Lactated Ringers 1,000 ML 100 ML IVCONT (08:06)
[2023-02-07 08:26] LABS: Amphetamine Screen Urine Not Detected (Not Detect); Barbiturates, Urine Not Detected (Not Detect); Benzodiazepines Screen Urine Not Detected (Not Detect); Cannabinoid Screen Urine POSITIVE (Not Detect); Cocaine Screen Urine POSITIVE (Not Detect); Fentanyl, urine Not Detected (Not Detect); Opiate Screen Urine Not Detected (Not Detect); Phencyclidine Screen Urine Not Detected (Not Detect)
--- NOTE | 2023-02-07 09:26 | PC.NURSE ---
dr. valdivia and dr. dejesus aware that patient urine toxicology was positive for cocaine and marijuana. decision was made by both doctors to continue with procedure today.
[2023-02-07 09:28] VITALS: BP 132/81; PULSE 75; RESP 18; TEMP 36.6; O2SAT 96
--- NOTE | 2023-02-07 09:28 | MHC.SHP ---
Pre-Procedural Eval Section A Date of Service: 02/07/23 The patient is an INPATIENT: No Changes since office visit: No Cold of Flu in the past 2 weeks, No New Medical Problems, No Changes in Medication and No Patient answered all questions The History & Physical has been completed within 30 days and I have reviewed it.: No Section B Chief Complaint: Benign prostatic hyperplasia without lower urinary Details of Present Illness: progressive symptoms Relevant Family History (Specify if Yes): No Relevant Social History: None Present Medications: see Short Stay Collaborative assessment Medical History: No relevant PMH History of Previous Operations: No relevant previous surgery Allergies: Allergies Allergy/AdvReac Type Severity Reaction Status Date / Time No Known Allergies Allergy Verified 01/27/23 14:47 Review of Systems Sugical H&P ROS: Negative: Constitution, Cardiovascular, Respiratory, Neurological, Psychiatric, Hem-Onc, Allergic/Immunologic, Gastrointestinal, Genitourinary, Musculoskeletal, Integumentary, Endocrine and Eyes/Ears/Nose/Throat Exam Surgical H&P Exam: Normal: HEENT, Normal: Heart, Normal: Lungs, Normal: Extremities, Normal: Abdomen, Normal: Skin and Normal: Neurological Plan Diagnosis/Plan: Unchanged ( laser enucleation of the prostate) I have reviewed the history and physical and performed a pertinent physical examination on my patient. No changes have occurred unless specified. Time Spent With Patient Time: Total time managing care of this patient today ____ minutes.
--- NOTE | 2023-02-07 09:29 | PC.NURSE ---
author attempted one IV with no success. Other attempts and insertions completed by Dr. Romero
--- NOTE | 2023-02-07 10:11 | W.PM.OPN ---
Operative Note Operative Note Date of Service: 02/07/23 Narrative: PreOperative Diagnosis: Bladder outlet obstruction Post Operative Diagnosis: Bladder outlet obstruction Procedure: GreenLight Laser Enucleation of the prostate Surgeon: Dr Maxime Humphreys Anesthesia: General Indications for procedure: persistent symptoms despite medication History of bladder outlet obstruction. Treated with alpha-nancy and other medications. Still with symptoms. On cystoscopy in office has [trilobar prostate] [tight bladder neck]. Recommendation for prostate procedure with laser enucleation of prostate. Risks and benefits have been discussed. Focus was placed on development of retrograde ejaculation which is a normal part of this procedure. Procedure: After informed consent was verified the patient was brought to the operating room and placed in a supine position. Anesthesia was administered per protocol. Patient was placed in modified dorsal lithotomy position and prepped and draped in a sterile fashion. Safety pause time-out was confirmed. Antibiotics have been given. A Twenty-four Azerbaijani laser cystoscope was inserted per urethra. No abnormalities were found of the anterior and bulbar urethra. The bladder was examined and both ureteric orifices were seen in their normal positions away from the area of interest. High riding bladder neck Using a GreenLight laser with settings of 80 w incisions were made at the 5 and 7 o'clock position. The incisions were taken down from the bladder neck down to the level of the veru. These were gradually deepened in order to define the lateral aspects of the median lobe area. Once clearly defined they will also extended in the lateral directions in order to create a deep groove. The median lobe was then ablated and enucleated tissue released into the bladder with the laser power increased to 120 W. Minor impingement from lateral lobes. Decision made not to proceed with enucleation of lateral lobe area Once the median lobe area had been cleared attention was directed to the lateral lobes. When this was had been completed debris and pieces of prostate were removed from the bladder with irrigation. Both ureteric orifices were reviewed again in shown to be patent in away from any areas of energy damage. The apical area was reviewed in any stray ooze was controlled. A 22 Azerbaijani 30 cc balloon Smith catheter was placed over a stylet into the bladder. Clear efflux was obtained upopn irrigation with a Dawna piston syringe. 30 cc was placed in the balloon and gentle traction was placed. A snap was used to hold tension on the catheter to control bleeding during patient moved and transported. A drainage bag was placed. Once transportation is complete to the PACU the snap will be removed. The patient tolerated the procedure well, he was extubated in the operating and transferred in a stable condition to the recovery area. Total Power 21 kW Lasing time 3:38 Pathology: Prostate tissue Drains: Smith catheter
[2023-02-07 10:25] VITALS: BP 125/75; PULSE 72; RESP 16; TEMP 36.4; O2SAT 95
[2023-02-07 10:30] VITALS: BP 133/81; PULSE 78; RESP 16; O2SAT 95
[2023-02-07 10:35] VITALS: BP 135/82; PULSE 73; RESP 16; O2SAT 95
[2023-02-07 10:40] VITALS: BP 138/83; PULSE 68; RESP 16; TEMP 36.4; O2SAT 96
== END 2023-02-07 11:02 | disposition home or self-care (01) ==
PROVIDERS: Nurse Practitioner; PCP Internal Medicine; Visit Provider Urology
PROC: (CPT 52648; principal; 2023-02-07 09:10)
DX: N40.1 Benign prostatic hyperplasia with lower urinary tract symptoms (principal); N32.0 Bladder-neck obstruction; R35.1 Nocturia; R39.12 Poor urinary stream; I10 Essential (primary) hypertension; G47.33 Obstructive sleep apnea (adult) (pediatric); G47.34 Idiopathic sleep related nonobstructive alveolar hypoventilation; E66.9 Obesity, unspecified; R82.5 Elevated urine levels of drugs, medicaments and biological substances; Z68.32 Body mass index [BMI] 32.0-32.9, adult; Z87.891 Personal history of nicotine dependence; Z79.899 Other long term (current) drug therapy; Z99.89 Dependence on other enabling machines and devices; Z87.442 Personal history of urinary calculi
CPT/HCPCS: 52649; 80307; 88305; J0131; J1956; J3010

== ENCOUNTER → 2023-02-10 10:15 | Outpatient (BNVA) | payer OTHER, SELFPAY | PROVIDERS: Visit Provider Urology | DX: R35.1 Nocturia (principal) | CPT/HCPCS: 51700; 51798 ==

== ENCOUNTER 2023-03-23 11:38 | Outpatient (AMB) | payer OTHER, SELFPAY ==
--- NOTE | 2023-03-23 11:44 | A.OFFVIS_ITS ---
Intake Intake Visit Reasons: post-op greenlight Intake Note: Pt presents to the office today for a follow up. Urinalysis done. PVR:20ml Allergies No Known Allergies Allergy (Verified 03/23/23 11:44) Medication List - Last Reconciled 03/23/23 by Maxime Humphreys MD blood pressure monitor As directed CPAP (CPAP Machine/Device) autoPAP mode 6-20 cmH2O doxazosin 8 mg PO BEDTIME 30 days finasteride 5 mg PO DAILY 30 days ipratropium bromide 2 sprays intranasal BID 30 days MDD NASAL CONGESTION lisinopril 20 mg PO DAILY 90 days tramadol 50 mg PO Q6H PRN HPI HPI Comments History of Present Illness Details Ziggy is a pleasant male. He is a patient of Dr. White. He is seen for the following urologic conditions - lower urinary tract symptoms Six week postprocedure Very happy with current result Effective stream Will try stopping medications 6 month follow-up PSA Lower urinary tract symptoms Current medications include combination therapy doxazosin 8 mg with finasteride Prior medications include tamsulosin Initial symptomatology - nocturia x5, weakness of stream, hesitancy, feeling of incomplete emptying - AUA score over 20 with bother 4 PVR 50 cc Therapeutic plan - GreenLight laser prostatectomy [facility] Medical History BPH (benign prostatic hyperplasia) Cataract Colon polyps History of hypertension Obesity (BMI 30-39.9) Overweight (BMI 25.0-29.9) Renal calculi Surgical History H/O colonoscopy H/O lithotripsy Family History Mother Mental health disorder Father Hypertension Dialysis complication Social History Housing: Apartment Alcohol intake: never Patient Tobacco Use Status: Former Tobacco user Tobacco use type: Cigarette e-Cigarette/Vaping Use: Never Used Second Hand Smoke Exposure: No Substance Use Type: Opiates service: No Current occupational status: employed Current occupational exposures/hazards: No Cognitive needs: No Hearing needs: No Vision needs: Yes Review of Systems Const Denies chills and Denies fever(s) Card Reports no additional complaints and Denies syncope Resp Denies cough GI Denies abdominal pain and Denies heartburn Reports as per HPI and Denies change in libido Neuro Denies syncope Psych Denies change in libido Endo Denies change in libido Physical Exam Const General: cooperative, healthy appearing, comfortable and no acute distress Orientation/consciousness: patient oriented x3 HEENT Face and sinus: Yes normal facial exam Mouth: moist mucous membranes Neck Neck: Yes normal visual inspection, Yes full ROM and Yes trachea midline Chest Chest palpation & inspection: normal inspection of the chest Resp Effort & Inspection: normal respiratory effort, able to speak in complete sentences and no respiratory distress GI Inspection: Yes normal to inspection Back/Spine/Pelvis Cervical Spine: normal cervical lordosis Thoracic/Lumbar Spine: thoracic and lumbar spine normal to inspection Skin General skin exam: no rashes or lesions noted Neuro General: patient oriented x3, gait normal, tone normal and moves all extremities Extrem General: Yes normal to inspection and Yes capillary refill normal Office Procedures Post Void Residual Post Residual Void Post Void Residual (PVR): 20 [id number] Void Residual by ultrasound Results AMB Urinalysis, Automated UA Leukoctes 0 Daisy/uL Last Edit by Kanika Tomas MA on 03/23/23 11:51 UA Nitrite Negative Last Edit by Kanika Tomas MA on 03/23/23 11:51 UA Urobilinogen 0.2 mg/dL Last Edit by Kanika Tomas MA on 03/23/23 11:51 UA Protein 30 mg/dL Last Edit by Kanika Tomas MA on 03/23/23 11:51 UA pH 6.0 Last Edit by Kanika Tomas MA on 03/23/23 11:51 UA Blood 25 Blaine/uL Last Edit by Kanika Tomas MA on 03/23/23 11:51 UA Specific [place] 1.025 Last Edit by Kanika Tomas MA on 03/23/23 11:51 UA Ketone Negative Last Edit by Kanika Tomas MA on 03/23/23 11:51 UA Bilirubin 0 mg/dL Last Edit by Kanika Tomas MA on 03/23/23 11:51 UA Glucose 0 mg/dL Last Edit by Kanika Tomas MA on 03/23/23 11:51 Results Reviewed Results Reviewed: Laboratory Last Values Urine pH (Auto) 6.0 03/23/23 11:46 Specific [place] (Auto) 1.025 03/23/23 11:46 Urine Protein (Auto) 30 mg/dL 03/23/23 11:46 Glucose (UA)(Auto) 0 mg/dL 03/23/23 11:46 Urine Ketones (Auto) Negative 03/23/23 11:46 Urine Blood (Auto) 25 Blaine/uL 03/23/23 11:46 Urine Nitrite (Auto) Negative 03/23/23 11:46 Urine Bilirubin (Auto) 0 mg/dL 03/23/23 11:46 Urine Urobilinogen (Auto) 0.2 mg/dL 03/23/23 11:46 Leukocyte Esterase (Auto) 0 Daisy/uL 03/23/23 11:46 Assessment & Plan Assessment & Plan (1) BPH (benign prostatic hyperplasia): Code(s): N40.0 - Benign prostatic hyperplasia without lower urinary tract symptoms (2) Nocturia more than twice per night: Code(s): R35.1 - Nocturia Plan Six month follow-up PSA Orders: Orders Prostate Specific Antigen 6 Months N40.0 - Benign prostatic hyperplasia without lower urinary tract symptoms AMB Urinalysis Automated Today Z13.9 - Encounter for screening, unspecified AMB Post Void Residual by ultrasound Today N40.1 - Benign prostatic hyperplasia with lower urinary tract symptoms, R35.1 - Nocturia Patient Instructions: Imaging studies, laboratory and physical exam results were discussed and reviewed in detail. No major barriers to patient understanding were identified. An opportunity to ask questions regarding the treatment plan was provided. All questions were answered. The patient expressed understanding and agreement with the above treatment plan. The patient is aware they should contact our office by phone for worsening of their current condition or the appearance of new urologic symptoms. Compliance is encouraged with any medications and followup testing that is ordered. It is a privilege to participate in the urologic care of your patient. If you have any questions or concerns regarding treatment for the above conditions, or other urologic issues, please do not hesitate to contact me. The office telephone contact is [phone]. This note is constructed using voice recognition software. While every effort has been made to ensure accuracy shared services and outsourcing manager errors may have been included. Yours sincerely, Dr Maxime Humphreys MD, [facility] - Urology Providers of Expert, Compassionate Care for the Genitourinary System Coding Level of Care Code Est Pt Level 3 (87097) Diagnoses BPH (benign prostatic hyperplasia) N40.0 Nocturia more than twice per night R35.1 CPT Codes Post Residual Void - PVR CPT Code: 08299-Wpho Void Residual by ultrasound ([id number])
== END 2023-03-23 12:19 | disposition home or self-care (01) ==
PROVIDERS: PCP Internal Medicine; Visit Provider Urology
DX: N40.0 Benign prostatic hyperplasia without lower urinary tract symptoms (principal); R35.1 Nocturia
CPT/HCPCS: 99213

== ENCOUNTER → 2023-03-23 11:38 | Outpatient (BNVA) | payer OTHER, SELFPAY | PROVIDERS: PCP Internal Medicine; Visit Provider Urology | DX: N40.0 Benign prostatic hyperplasia without lower urinary tract symptoms (principal); R35.1 Nocturia | CPT/HCPCS: 51798; 99212 ==

== ENCOUNTER 2023-03-31 14:05 | Outpatient (AMB) | payer OTHER, SELFPAY ==
--- NOTE | 2023-03-31 14:09 | MHC.OFFVIS ---
Intake Vital Signs 03/31/23 14:15 Height 5 ft 4 in Weight 182 lb BMI 31.2 BP 130/70 Blood Pressure Location Lt brachial Position Sitting Pulse 82 Pulse Source Pulse Oximeter Pulse Oximetry (%) 96 Oxygen Delivery Method Room Air Intake Visit Reasons: Obstructive sleep apnea Intake Note: pt is here for follow up and states he is waiting for power cord. has tracking number for something coming in. Allergies No Known Allergies Allergy (Verified 03/31/23 14:36) Medication List - Last Reconciled 03/31/23 by Izzy Starr MD blood pressure monitor As directed CPAP (CPAP Machine/Device) autoPAP mode 6-20 cmH2O doxazosin 8 mg PO BEDTIME 30 days finasteride 5 mg PO DAILY 30 days ipratropium bromide 2 sprays intranasal BID 30 days MDD NASAL CONGESTION lisinopril 20 mg PO DAILY 90 days tramadol 50 mg PO Q6H PRN Do you need a note to return to daycare/school/sports/work: No HPI Obstructive sleep apnea HPI Details THIS 57 YEARS OLD VERY PLEASANT GENTLEMAN IS A CASE OF OBSTRUCTIVE SLEEP APNEA. HE HAS BEEN A REGULAR USER OF CPAP. LAST MONTH HIS CPAP WAS BROKEN AND DID NOT FUNCTION. HE SENT THE CPAP DEVICE BACK AND UNFORTUNATELY SEND THE POWER CORD ALONG WITH THE MACHINE. NOW THE DME PROVIDER HAS SENT HIM A NEW CPAP MACHINE BUT WITHOUT THE POWER CORD, HE IS TOLD BY DME THAT HE HAS TO BY THE POWER CORD, AND THIS IS KEEPING HIM BACK FROM USING THE CPAP. WHEN HE WAS USING CPAP HE WAS SLEEPING VERY GOOD. SNORING AND HIS SLEEP WAS MUCH BETTER. HE HAS NO OTHER SIGNIFICANT ISSUES AT THIS TIME. WITH THE USE OF CPAP HE DID HAVE MILD NASAL CONGESTION BUT IT WAS IMPROVED AFTER USING IPRATROPIUM BROMIDE 2 SPRAY BEFORE PUTTING ON THE MASK. HE DENIES ANY WHEEZING OR COUGH. [facility] Medical History BPH (benign prostatic hyperplasia) Cataract Colon polyps History of hypertension Obesity (BMI 30-39.9) Overweight (BMI 25.0-29.9) Renal calculi Surgical History H/O colonoscopy H/O lithotripsy Family History Mother Mental health disorder Father Hypertension Dialysis complication Social History Housing: Apartment Alcohol intake: never Patient Tobacco Use Status: Former Tobacco user Tobacco use type: Cigarette e-Cigarette/Vaping Use: Never Used Second Hand Smoke Exposure: No Substance Use Type: Opiates service: No Current occupational status: employed Current occupational exposures/hazards: No Cognitive needs: No Hearing needs: No Vision needs: Yes Review of Systems Const All systems reviewed & are unremarkable except as noted in HPI and below Reports snoring Eyes Reports no additional complaints ENT Reports nasal congestion (AT NIGHT) Card Denies chest pain, Denies irregular heart rhythm and Denies leg edema Resp Reports cough (OCCASIONAL), Reports snoring and Denies wheezing GI Reports no additional complaints Reports nocturia Musc Reports no additional complaints Skin/Breast Reports system reviewed and no additional complaints, except as documented Neuro Reports no additional complaints Psych Reports no additional complaints Endo Reports no additional complaints Raheel/Lymph Reports no additional complaints Aller/Immun Denies wheezing Physical Exam Const General: healthy appearing (EXCEPT FOR BEING OVERWEIGHT), comfortable, no acute distress, alert and awake Orientation/consciousness: patient oriented x3 HEENT Head: Yes normal to inspection General nose exam: No nasal polyps present and No nasal discharge present Face and sinus: Yes sinuses nontender Mouth: oropharynx abnormals (OROPHARYNX IS NARROW AND CROWDED, MALLAMPATI CLASS 4) Throat: Yes posterior oropharynx normal Eyes General: appearance normal, both eyes and all related structures Neck Neck: Yes normal visual inspection, Yes no lymphadenopathy, Yes trachea midline, Yes no JVD and Yes other (NECK CIRCUMFERENCE 17 IN) Thyroid: Thyroid normal Chest Chest palpation & inspection: normal inspection of the chest, normal palpation of entire chest wall and no tenderness Resp Effort & Inspection: normal respiratory effort Auscultation: clear to auscultation bilaterally, no crackles and no wheezes Cardio Palpation: normal PMI Rate: regular rate Rhythm: regular rhythm Heart sounds: no gallops and no murmurs Peripheral pulses: Peripheral pulses 2+ throughout GI Palpation (GI): Soft to palpation, nontender, No hepatosplenomegaly present and no masses Auscultation: normal bowel sounds Back/Spine/Pelvis Thoracic/Lumbar Spine: thoracic and lumbar spine normal to inspection Skin General skin exam: no rashes or lesions noted Neuro General: patient oriented x3 and no focal motor deficits Cranial nerves: Yes CN's II-XII intact bilaterally Extrem General: Yes normal to inspection, Yes no clubbing, cyanosis or edema and Yes no calf tenderness Psych Appearance: grossly normal and well kempt Speech and movement: Normal speech and movement present Assessment & Plan Assessment & Plan (1) JULIA (obstructive sleep apnea): Comment: HE HAS SEVERE OBSTRUCTIVE SLEEP APNEA. HE WAS BENEFITING FROM THE USE OF CPAP, . AND SLEPT MUCH BETTER ( FF MASK APAP 6-20 CM ) USED THE IPRATROPIUM NASAL SPRAY 2 SPRAY IN EACH NOSTRIL BEFORE PUTTING ON THE MASK. UNFORTUNATELY THERE IS ADMINISTRATIVE ISSUE. WITH THE REPLACEMENT UNIT HE DID NOT GET THE POWER CORD, HE FINDS IT EXPENSIVE TO BUY THE CORD OUT OF POCKET. WE HAVE CALL THE [employer] AND REQUESTED THEM TO HELP HIM. HE IS ALSO GOING TO LOOK ONLINE PURCHASE OF THE POWER CORD. Code(s): G47.33 - Obstructive sleep apnea (adult) (pediatric) (2) Nocturnal hypoxemia: Comment: HE HAS NOCTURNAL HYPOXEMIA SECONDARY TO JULIA/HYPOVENTILATION , AND IT IS EXPECTED TO IMPROVE HE USES CPAP REGULARLY. AN OVERNIGHT OXIMETRY RECORDING WOULD BE DONE ONCE HE STARTS USING THE CPAP WITH FULL COMPLIANCE. Code(s): G47.34 - Idiopathic sleep related nonobstructive alveolar hypoventilation (3) Obesity (BMI 30-39.9): Comment: THIS GENTLEMAN IS MODERATELY OBESE, DISCUSSED WITH HIM ABOUT DIET AND EXERCISE. THERE IS NEED TO LOSE ABOUT 15-20 LB OF WEIGHT. Code(s): E66.9 - Obesity, unspecified Coding Level of Care Code Est Pt Level 3 (50636) Diagnoses JULIA (obstructive sleep apnea) G47.33 Nocturnal hypoxemia G47.34 Obesity (BMI 30-39.9) E66.9
[2023-03-31 14:15] VITALS: BP 130/70; PULSE 82; O2SAT 96; BMI 31.2
== END 2023-03-31 14:37 | disposition home or self-care (01) ==
PROVIDERS: PCP Internal Medicine; Visit Provider Internal Medicine
DX: G47.33 Obstructive sleep apnea (adult) (pediatric) (principal); G47.34 Idiopathic sleep related nonobstructive alveolar hypoventilation; E66.9 Obesity, unspecified
CPT/HCPCS: 99213

== ENCOUNTER → 2023-03-31 14:05 | Outpatient (BNVA) | payer OTHER, SELFPAY | PROVIDERS: PCP Internal Medicine; Visit Provider Internal Medicine | DX: G47.33 Obstructive sleep apnea (adult) (pediatric) (principal); G47.34 Idiopathic sleep related nonobstructive alveolar hypoventilation; E66.9 Obesity, unspecified; Z68.31 Body mass index [BMI] 31.0-31.9, adult | CPT/HCPCS: 99212 ==

== ENCOUNTER 2023-05-06 14:51 | Emergency (ER) | payer OTHER, SELFPAY ==
[2023-05-06 14:58] VITALS: BP 137/83; PULSE 82; RESP 18; TEMP 36.7; O2SAT 98; BMI 32.6
--- NOTE | 2023-05-06 14:59 | ED_ITS ---
HPI - General Adult General Chief complaint: Skin/Abscess/Foreign Body Stated complaint: Abscess on Chest Area Time Seen by Provider: 05/06/23 18:58 Source: patient Mode of arrival: ambulatory Limitations: no limitations History of Present Illness HPI narrative: For one week patient developed swelling and redness to his sternum, He has been using warm compresses and getting some drainage Onset (ago): week(s) Location: chest Severity: mild Related Data Previous Rx's Medication Instructions Recorded doxazosin 8 mg tablet 8 mg PO BEDTIME 30 days #30 tabs 09/07/22 finasteride 5 mg tablet 5 mg PO DAILY 30 days #30 tabs 09/07/22 blood pressure monitor #1 ea 09/12/22 CPAP (CPAP Machine/Device) #1 ea 11/12/22 tramadol 50 mg tablet 50 mg PO Q6H PRN pain (scale score 02/07/23 1-3) #8 tabs lisinopril 20 mg tablet 20 mg PO DAILY 90 days #90 tabs 03/25/23 ipratropium bromide 21 mcg (0.03 2 spray intranasal BID nASAL 04/27/23 %) nasal spray CONGESTION 30 days #30 mL cephalexin 500 mg capsule 500 mg PO TID 10 days #30 caps 05/06/23 Allergies Allergy/AdvReac Type Severity Reaction Status Date / Time No Known Allergies Allergy Verified 03/31/23 14:36 Review of Systems Review of Systems: Yes all other systems are reviewed and are negative Neurologic: Denies Sensory deficit (Neuro) [facility] Past Medical History Medical History Obesity (BMI 30-39.9) BPH (benign prostatic hyperplasia) Cataract Renal calculi Colon polyps History of hypertension Overweight (BMI 25.0-29.9) Surgical History H/O colonoscopy H/O lithotripsy Family History Family History Mother Mental health disorder Father Hypertension Dialysis complication Social History Social History Housing: Apartment Alcohol intake: never Patient Tobacco Use Status: Former Tobacco user Tobacco use type: Cigarette e-Cigarette/Vaping Use: Never Used Second Hand Smoke Exposure: No Substance Use Type: Opiates Advance Directives: No Advance Directives Information Provided: No service: No Current occupational status: employed Current occupational exposures/hazards: No Cognitive needs: No Hearing needs: No Vision needs: Yes Physical Exam ED Vital Signs: Vital Signs - 24 hr 05/06/23 14:58 Temperature 98.0 F Pulse Rate 82 Respiratory Rate 18 Blood Pressure 137/83 Pulse Oximetry 98 Oxygen Delivery Method Room Air BMI result Body Mass Index 32.6 Const General: healthy appearing Nutritional Appearance: average body habitus Orientation/consciousness: oriented to person and patient oriented x3 Limitations: no limitations HENMT Head: Yes normal to inspection Ears: external ears normal General nose exam: Normal external nose present Mouth: Normal oral and palatal mucosa present and oropharynx normal Throat: Yes posterior oropharynx normal Eyes General: appearance normal, both eyes and all related structures Neck Neck: Yes normal visual inspection Chest Chest palpation & inspection: normal inspection of the chest Resp Auscultation: clear to auscultation bilaterally Cardio Jugular venous distension: no JVD Rate: regular rate Rhythm: regular rhythm Heart sounds: S1 normal heart sound present and S2 normal heart sound present GI Inspection: Yes normal to inspection Palpation (GI): Soft to palpation, nontender and No hepatosplenomegaly present Auscultation: normal bowel sounds General: Yes no CVA tenderness Back/Spine/Pelvis Back: no CVA tenderness Skin Other: over sternum 3cm area with erythema, raised hard with scab. Neuro General: oriented to person and patient oriented x3 Cranial nerves: Yes CN's II-XII intact bilaterally Motor exam (neuro): 5/5 motor strength present throughout Sensory Exam: No Sensory deficit (Neuro) Extrem General: Yes normal to inspection Psych Appearance: grossly normal Course Course Course Narrative: This is an RME: Additional HPI, ROS, PE not included below will be deferred to primary provider. 57 y o male PMH HTN, obesity presenting for evaluation of abscess to chest, present x4 days. States it began as an ingrown hair which he tried to pop, states it has been growing and is painful. States it is in the center of his chest with surrounding erythema. Denies fever, chills, chest pain not otherwise localized to lesion, shortness of breath, dizziness. PE 1cm indurated lesion to center anterior chest wall with surrounding erythema, TTP, non blanching Plan: Labs Reevaluation(s) Reevaluation #1: With pressure able to express some pus, removed scab. No evidence of abscess Time: 19:19 Medical Decision Making Differential Diagnosis Differential Diagnoses: The differential diagnosis associated with the presentation includes (abscess, cellulitis) Tests considered The following testing was considered but not selected: I considered obtaining CBC and Chem 7 but patient nontoxic Discharge Plan Discharge Clinical Impression: Cellulitis Qualifiers: Site of cellulitis: unspecified site Qualified Code(s): L03.90 - Cellulitis, unspecified Patient Disposition: Home, Self-Care Instructions: Cellulitis (ED), Warm Compress or Soak (ED) Prescriptions: New cephalexin 500 mg capsule 500 mg PO TID 10 Days Qty: 30 0RF No Action (DME) blood pressure monitor Kit See Rx Instructions .Route Qty: 1 0RF Rx Instructions: As directed (DME) CPAP Machine/Device Device See Rx Instructions .Route Qty: 1 0RF Rx Instructions: autoPAP mode 6-20 cmH2O lisinopril 20 mg tablet 20 mg PO DAILY 90 Days Qty: 90 0RF ipratropium bromide 21 mcg (0.03 %) spray,non-aerosol 2 spray intranasal BID MDD NASAL CONGESTION 30 Days Qty: 30 3RF Rx Instructions: administer into each nostril tramadol 50 mg tablet 50 mg PO Q6H PRN (Reason: pain (scale score 1-3)) Qty: 8 0RF doxazosin 8 mg tablet 8 mg PO BEDTIME 30 Days Qty: 30 1RF finasteride 5 mg tablet 5 mg PO DAILY 30 Days Qty: 30 1RF Referrals: Isamar Diaz MD [Primary Care Provider] - 1 week
[2023-05-06] MEDS: cephALEXin 500 MG CAPSULE PO (19:41)
== END 2023-05-06 19:46 | disposition home or self-care (01) ==
PROVIDERS: Emergency Provider Emergency Medicine; PCP Internal Medicine
DX: L03.90 Cellulitis, unspecified (principal); Z87.891 Personal history of nicotine dependence
CPT/HCPCS: 99282; 99283

== ENCOUNTER 2023-06-30 13:58 | Outpatient (AMB) | payer OTHER, SELFPAY ==
[2023-06-30 14:05] VITALS: BP 110/64; PULSE 79; O2SAT 96; BMI 31.1
--- NOTE | 2023-06-30 14:05 | A.OFFVIS_ITS ---
Intake Vital Signs 06/30/23 14:05 Height 5 ft 4 in Weight 181 lb BMI 31.1 BP 110/64 Blood Pressure Location Lt brachial Position Sitting Pulse 79 Pulse Source Pulse Oximeter Pulse Oximetry (%) 96 Oxygen Delivery Method Room Air Intake Visit Reasons: Obstructive sleep apnea Intake Note: pt is here for follow up of JULIA and he has his cpap working now and feels great. Pleat Patternmaker Required: No Allergies No Known Allergies Allergy (Verified 06/30/23 14:12) Medication List - Last Reconciled 06/30/23 by Izzy Starr MD blood pressure monitor As directed CPAP (CPAP Machine/Device) autoPAP mode 6-20 cmH2O doxazosin 8 mg PO BEDTIME 30 days finasteride 5 mg PO DAILY 30 days ipratropium bromide 2 sprays intranasal BID 30 days MDD NASAL CONGESTION lisinopril 20 mg PO DAILY 90 days tramadol 50 mg PO Q6H PRN Do you need a note to return to daycare/school/sports/work: No HPI Obstructive sleep apnea HPI Details Ziggy is a very pleasant 58 years old gentleman with diagnosis of obstructive sleep apnea. He uses his CPAP very regularly and is happy using at. Sleeps good sometime even up to 8 or 9 hours. Wakes up refreshed and denies any daytime sleepiness. His CPAP device is working well and he has no issues. He is also trying to lose weight slowly. FORMERLY [facility] Medical History Obesity (BMI 30-39.9) BPH (benign prostatic hyperplasia) Cataract Renal calculi Colon polyps History of hypertension Overweight (BMI 25.0-29.9) Surgical History H/O colonoscopy H/O lithotripsy Family History Mother Mental health disorder Father Hypertension Dialysis complication Social History Housing: Apartment Alcohol intake: never Patient Tobacco Use Status: Former Tobacco user Tobacco use type: Cigarette e-Cigarette/Vaping Use: Never Used Second Hand Smoke Exposure: No Substance Use Type: Opiates service: No Current occupational status: employed Current occupational exposures/hazards: No Cognitive needs: No Hearing needs: No Vision needs: Yes Review of Systems Const All systems reviewed & are unremarkable except as noted in HPI and below Reports snoring Eyes Reports no additional complaints ENT Reports nasal congestion (AT NIGHT) Card Denies chest pain, Denies irregular heart rhythm and Denies leg edema Resp Reports cough (OCCASIONAL), Reports snoring and Denies wheezing GI Reports no additional complaints Reports nocturia Musc Reports no additional complaints Skin/Breast Reports system reviewed and no additional complaints, except as documented Neuro Reports no additional complaints Psych Reports no additional complaints Endo Reports no additional complaints Raheel/Lymph Reports no additional complaints Aller/Immun Denies wheezing Physical Exam Vital Signs: Last Vital Signs Pulse 79 06/30/23 14:05 BP 110/64 06/30/23 14:05 Pulse Ox 96 06/30/23 14:05 Oxygen Delivery Method Room Air 06/30/23 14:05 BMI result Body Mass Index 31.1 Const General: healthy appearing (EXCEPT FOR BEING OVERWEIGHT), comfortable, no acute distress, alert and awake Orientation/consciousness: patient oriented x3 HEENT Head: Yes normal to inspection General nose exam: No nasal polyps present and No nasal discharge present Face and sinus: Yes sinuses nontender Mouth: oropharynx abnormals (OROPHARYNX IS NARROW AND CROWDED, MALLAMPATI CLASS 4) Throat: Yes posterior oropharynx normal Eyes General: appearance normal, both eyes and all related structures Neck Neck: Yes normal visual inspection, Yes no lymphadenopathy, Yes trachea midline, Yes no JVD and Yes other (NECK CIRCUMFERENCE 17 IN) Thyroid: Thyroid normal Chest Chest palpation & inspection: normal inspection of the chest, normal palpation of entire chest wall and no tenderness Resp Effort & Inspection: normal respiratory effort Auscultation: clear to auscultation bilaterally, no crackles and no wheezes Cardio Palpation: normal PMI Rate: regular rate Rhythm: regular rhythm Heart sounds: no gallops and no murmurs Peripheral pulses: Peripheral pulses 2+ throughout GI Palpation (GI): Soft to palpation, nontender, No hepatosplenomegaly present and no masses Auscultation: normal bowel sounds Back/Spine/Pelvis Thoracic/Lumbar Spine: thoracic and lumbar spine normal to inspection Skin General skin exam: no rashes or lesions noted Neuro General: patient oriented x3 and no focal motor deficits Cranial nerves: Yes CN's II-XII intact bilaterally Extrem General: Yes normal to inspection, Yes no clubbing, cyanosis or edema and Yes no calf tenderness Psych Appearance: grossly normal and well kempt Speech and movement: Normal speech and movement present Results Reviewed Results Reviewed: Compliance report for the last 30 nights is reviewed. He used 24/30 nights, . 80% of the time He missed some nights because he was out of town. Whenever he uses the CPAP he uses at least for 5-6 hours per night. Assessment & Plan Assessment & Plan (1) Obesity (BMI 30-39.9): Comment: THIS GENTLEMAN IS MODERATELY OBESE, DISCUSSED WITH HIM ABOUT DIET AND EXERCISE. THERE IS NEED TO LOSE ABOUT 15-20 LB OF WEIGHT. HE HAS LOST 9 LB SINCE HIS LAST VISIT AND REMAINS MOTIVATED TO LOSE MORE FOR. Code(s): E66.9 - Obesity, unspecified (2) JULIA (obstructive sleep apnea): Comment: HE HAS SEVERE OBSTRUCTIVE SLEEP APNEA. HE IS VERY COMPLIANT AND USES CPAP REGULARLY. HE MISSES USING THE CPAP ONLY WHEN HE GOES OUT OF TOWN. STILL BENEFITING AND WAKES UP REFRESHED IN THE MORNING. HE WILL CONTINUE TO USE MORE REGULARLY. Code(s): G47.33 - Obstructive sleep apnea (adult) (pediatric) (3) Nocturnal hypoxemia: Comment: HE HAS NOCTURNAL HYPOXEMIA SECONDARY TO JULIA/HYPOVENTILATION , AND IT IS EXPECTED TO IMPROVE HE USES CPAP REGULARLY. Code(s): G47.34 - Idiopathic sleep related nonobstructive alveolar hypoventilation Coding Level of Care Code Est Pt Level 3 (33549) Diagnoses Obesity (BMI 30-39.9) E66.9 JULIA (obstructive sleep apnea) G47.33 Nocturnal hypoxemia G47.34
== END 2023-06-30 14:20 | disposition home or self-care (01) ==
PROVIDERS: PCP Internal Medicine; Visit Provider Internal Medicine
DX: E66.9 Obesity, unspecified (principal); G47.33 Obstructive sleep apnea (adult) (pediatric); G47.34 Idiopathic sleep related nonobstructive alveolar hypoventilation
CPT/HCPCS: 99213

== ENCOUNTER → 2023-06-30 13:58 | Outpatient (BNVA) | payer OTHER, SELFPAY | PROVIDERS: PCP Internal Medicine; Visit Provider Internal Medicine | DX: G47.33 Obstructive sleep apnea (adult) (pediatric) (principal); G47.34 Idiopathic sleep related nonobstructive alveolar hypoventilation; E66.9 Obesity, unspecified; Z68.31 Body mass index [BMI] 31.0-31.9, adult | CPT/HCPCS: 99212 ==

== ENCOUNTER 2023-08-31 16:13 | Outpatient (AMB) | payer OTHER, SELFPAY ==
[2023-08-31 16:27] VITALS: BP 158/90; BMI 31.2
--- NOTE | 2023-08-31 16:27 | MHC.PC.OV ---
Vital Signs 08/31/23 16:27 08/31/23 17:33 Height 5 ft 4 in Weight 182 lb BMI 31.2 BP 158/90 H 150/90 H Blood Pressure Location Lt brachial Lt brachial Position Sitting Sitting Intake Visit Reasons: PE Intake Note: Patient here for a physical exam, ? 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 Open Pit Required: No Accompanied by: Self / Same As Patient Allergies No Known Allergies Allergy (Verified 08/31/23 16:30) Medication List - Last Reconciled 08/31/23 by Isamar White MD blood pressure monitor As directed CPAP (CPAP Machine/Device) autoPAP mode 6-20 cmH2O ipratropium bromide 2 sprays intranasal BID lisinopril 20 mg PO DAILY 90 days Tobacco use date assessed: 08/31/23 Dental Screening Dental Screen Date: 08/31/23 Did you have a dental visit in the last 12 months?: Yes Did you have a dental problem in the last 6 months where you did not have access to dental care?: No Was dental information given to patient?: Patient has dentist HPI HPI Comments History of Present Illness Details This is a 58-year-old male that comes for his physical exam. Blood pressure is elevated and he has run out of lisinopril. Blood pressure goal is equal or less than 130/80. Colonoscopy done August 2022 shows tubular adenoma. No chest pain or shortness of breath. Compliant with CPAP machine and feels more rested. Has an abscess in left thigh that bothers him. Complains of bilateral knee pain aggravated by activity and would like referral to ortho. FORMERLY [facility] Medical History (Updated 08/31/23 @ 17:38 by Isaamr White MD) Daytime somnolence Mild recurrent major depression Screen for colon cancer Obesity (BMI 30-39.9) BPH (benign prostatic hyperplasia) Cataract Renal calculi Colon polyps History of hypertension Overweight (BMI 25.0-29.9) Surgical History H/O colonoscopy H/O lithotripsy Family History Mother Mental health disorder Father Hypertension Dialysis complication Social History Housing: Apartment Alcohol intake: never Patient Tobacco Use Status: Former Tobacco user Tobacco use type: Cigarette e-Cigarette/Vaping Use: Never Used Second Hand Smoke Exposure: No Substance Use Type: Opiates service: No Current occupational status: unemployed Cognitive needs: No Hearing needs: No Vision needs: Yes Questionnaire PHQ-9 Over the last 2 weeks, how often have you been bothered by any of the following problems? 1. Little interest or pleasure in doing things: not at all 2. Feeling down, depressed, or hopeless: not at all 3. Trouble falling or staying asleep, or sleeping too much: not at all 4. Feeling tired or having little energy: not at all 5. Poor appetite or overeating: not at all 6. Feeling bad about yourself - or that you are a failure or have let yourself or your family down: not at all 7. Trouble concentrating on things, such as reading the newspaper or watching television: not at all 8. Moving or speaking so slowly that other people could have noticed. Or the opposite - being so fidgety or restless that you have been moving around a lot more than usual: not at all 9. Thoughts that you would be better off or of hurting yourself in some way: not at all Total score: 0 Depression Screening Interpretation: Negative Depression Screening Done: Yes 92470 - PHQ-9 Billing: Yes Source: Developed by Drs. Osmin Gong, Raine Sánchez, Serg Mclain and colleagues, with an educational allan from [employer]. Thrive Questionnaire Date Thrive assessed: 08/31/23 I am a: Patient What is your living situation today?: I have a steady place to live Within the past 12 months, did the food you bought not last and you didn't have the money to get more?: Never true Within the past 12 months, did you worry whether your food would run out before you got money to buy more?: Never true Do you have trouble paying for medicines?: No Do you have trouble getting transportation to medical appointments?: No Do you have trouble paying your heating and electricity bill?: No Do you have trouble taking care of your child, family member or friend?: No Do you have trouble with day-to-day activities such as bathing, preparing meals, shopping, managing finances, etc.?: No Are you currently unemployed and looking for a job?: No Are you interested in more education?: No Please select the resources that you would like help with: None AUDIT C Alcohol Use Questionnaire (AUDIT-C) 1. How often do you have a drink containing alcohol?: Never 2. How many drinks containing alcohol do you have on a typical day when you are drinking?: 1 or 2 3. How often do you have six or more drinks on one occasion?: Never Total Score: 0 Score Reviewed/Action Taken: No JESSICA-7 AMB Questionnaire JESSICA-7 Date JESSICA - 7 assessed: 08/31/23 Feeling nervous, anxious, or on edge: 0 = Not at all Not being able to stop or control worryin = Not at all Worrying too much about different things: 0 = Not at all Trouble relaxin = Not at all Being so restless that it is hard to sit still: 0 = Not at all Becoming easily annoyed or irritable: 0 = Not at all Feeling afraid as if something awful might happen: 0 = Not at all Total JESSICA-7 score (0-4 normal; 5-9 mild; 10-14 moderate; 15-21 severe): 0 Source: Developed by Drs. Osmin Gong, Raine Sánchez, Serg Mclain and colleagues, with an educational allan from [employer]. JESSICA-7 Assessment Billing JESSICA-7 Assessment Tool: JESSICA-7 Assessment 38823 Review of Systems Const All systems reviewed & are unremarkable except as noted in HPI and below Eyes Reports no additional complaints, Denies change in vision and Denies other visual disturbances Card Denies chest pain at rest, Denies chest pain with activity, Denies edema, Denies irregular heart rhythm, Denies claudication, Denies dyspnea, Denies dyspnea on exertion, Denies orthopnea, Denies paroxysmal nocturnal dyspnea and Denies slow heart rate Resp Denies cough, Denies dyspnea and Denies dyspnea on exertion GI Denies abdominal pain, Denies change in bowel habits, Denies excessive flatus, Denies nausea and Denies vomiting Denies urinary hesitancy, Denies urinary incontinence and Denies urinary urgency Musc Denies abnormal gait, Denies atrophy, Denies deformity and Denies limited range of motion Skin/Breast Denies bleeding lesions, Denies changing lesions and Denies rash Neuro Denies abnormal gait, Denies behavioral changes, Denies confusion and Denies lack of coordination Psych Denies behavioral changes and Denies confusion Physical exam (Primary Care) Vital Signs: Last Vital Signs BP 158/90 H 08/31/23 16:27 BMI result Body Mass Index 31.2 Tobacco/Smoking Status: Tobacco use Status Tobacco use date assessed 08/31/23 08/31/23 16:36 Patient Tobacco Use Status Former Tobacco user 08/31/23 16:27 Tobacco use type Cigarette 08/31/23 16:27 e-Cigarette/Vaping Use Never Used 08/31/23 16:27 PHQ-9: PHQ-9 Score PHQ-9: Total score 0 08/31/23 16:58 Depression Screening Interpretation: Negative Thrive Assessment: Date of Thrive Assessment Date Thrive assessed 08/31/23 08/31/23 16:36 Const General: No confusion Orientation/consciousness: patient oriented x3 and No confusion HENMT Head: Yes normal to inspection, Yes normocephalic and Yes atraumatic Ears: external ears normal Eyes General: appearance normal, both eyes and all related structures Eyelids: Yes eyelids normal Conjunctivae: conjunctivae normal Neck Neck: Yes normal visual inspection and Yes supple Resp Effort & Inspection: normal respiratory effort Auscultation: clear to auscultation bilaterally Cardio Jugular venous distension: no JVD Rate: regular rate Rhythm: regular rhythm Heart sounds: S1 normal heart sound present and S2 normal heart sound present GI Inspection: Yes normal to inspection Palpation (GI): Soft to palpation and nontender Auscultation: normal bowel sounds Skin General skin exam: no rashes or lesions noted Neuro General: patient oriented x3, no focal motor deficits and No confusion Extrem General: Yes full ROM Psych Appearance: grossly normal Office Procedures Flu Questionnaire Does the patient have a severe egg allergy?: No Immunizations flu vacc [id number] 6mos up(PF) 60 mcg(15 mcgx4)/0.5 mL IM syringe Performing Provider: Isamar White MD [facility] Documented (not given) by: JOEY South on 08/31/23 16:27 Reason Not Given: Patient Refused Assessment and Plan Assessment & Plan (1) Physical exam: Code(s): Z00.00 - Encounter for general adult medical examination without abnormal findings Plan: Repeat in a year. Orders: Orders Influenza [id number] Immunization Today Z23 - Encounter for immunization Lipid Panel Today E78.5 - Hyperlipidemia, unspecified Comprehensive [place]. Panel Fast Today Z00.00 - Encounter for general adult medical examination without abnormal findings Referrals Orthopedics Referral M25.561 - Pain in right knee, M25.562 - Pain in left knee Medications: New sulfamethoxazole-trimethoprim 800-160 mg (Bactrim DS) 1 tab PO BID 10 days 20 tabs 0RF Refilled lisinopril 20 mg PO DAILY 90 days 90 tabs 1RF I10 - Essential (primary) hypertension Coding Level of Care Code Est Pt Prev Care 40-64y(27825) Diagnoses Physical exam Z00.00 Additional Codes JESSICA-7 Assessment Billing - JESSICA-7 Assessment Tool: JESSICA-7 Assessment 91791 ([id number]) Time Spent (min) 32
[2023-08-31 17:33] VITALS: BP 150/90
== END 2023-08-31 17:03 | disposition home or self-care (01) ==
PROVIDERS: PCP Internal Medicine; Visit Provider Internal Medicine
DX: Z00.00 Encounter for general adult medical examination without abnormal findings (principal)
CPT/HCPCS: 99396

== ENCOUNTER 2023-09-06 18:55 | Emergency (ER) | payer OTHER, SELFPAY ==
[2023-09-06 20:07] VITALS: BP 146/62; PULSE 65; RESP 18; TEMP 36.4; O2SAT 95; BMI 31.6
--- NOTE | 2023-09-06 20:07 | ED_ITS ---
HPI - Skin/Abscess/Foreign Bdy General Chief complaint: Dental/Oral Stated complaint: cut his tongue swollen/infection? Time Seen by Provider: 09/07/23 04:03 Source: patient Mode of arrival: ambulatory History of Present Illness HPI narrative: 58-year-old male who presents after having bitten his tongue on Tuesday and states that his tongue is still sore. Related Data Previous Rx's Medication Instructions Recorded blood pressure monitor #1 ea 09/12/22 CPAP (CPAP Machine/Device) #1 ea 11/12/22 ipratropium bromide 21 mcg (0.03 2 spray intranasal BID #90 mL 07/25/23 %) nasal spray lisinopril 20 mg tablet 20 mg PO DAILY 90 days #90 tabs 08/31/23 sulfamethoxazole 800 1 tab PO BID 10 days #20 tabs 08/31/23 mg-trimethoprim 160 mg tablet (Bactrim DS) Magic Mouthwash 10 ml PO BID 5 days #240 mL 09/07/23 Diphen/Nystat/Antacid 1:1:1 240 mL suspension Allergies Allergy/AdvReac Type Severity Reaction Status Date / Time No Known Allergies Allergy Verified 08/31/23 16:30 Review of Systems 2 Review of Systems: Pertinent positives and negatives as stated in HPI PMFSH Past Medical History Source: nursing notes reviewed Medical History Daytime somnolence Mild recurrent major depression Screen for colon cancer Obesity (BMI 30-39.9) BPH (benign prostatic hyperplasia) Cataract Renal calculi Colon polyps History of hypertension Overweight (BMI 25.0-29.9) Surgical History H/O colonoscopy H/O lithotripsy Family History Family History Mother Mental health disorder Father Hypertension Dialysis complication Social History Social History Housing: Apartment Alcohol intake: never Patient Tobacco Use Status: Former Tobacco user Tobacco use type: Cigarette e-Cigarette/Vaping Use: Never Used Second Hand Smoke Exposure: No Substance Use Type: Opiates Advance Directives: No Advance Directives Information Provided: No service: No Current occupational status: unemployed Cognitive needs: No Hearing needs: No Vision needs: Yes Physical Exam 2 Vital Signs: Vital Signs: Last Vital Signs Temp 97.8 F 09/07/23 01:40 Pulse 68 09/07/23 01:40 Resp 16 09/07/23 01:40 BP 183/75 H 09/07/23 01:40 Pulse Ox 96 09/07/23 01:40 O2 Del Method Room Air 09/07/23 01:40 BMI result Body Mass Index 31.6 VITAL SIGNS: Reviewed. GENERAL: Well developed, well nourished, in no acute distress. HEAD: Normocephalic/atraumatic EYES: PERRLA, EOMI EARS: Ext canals without abnormality NOSE: Nares patent bilateral OROPHARYNX: no oral lesions noted, posterior pharynx clear tongue with white plaque NECK: Supple, no adenopathy LUNGS: Normal breath sounds. No adventitious sounds or accessory muscle use. SpO2<96> CARDIOVASCULAR: Regular rate and rhythm without noted murmurs ABDOMEN: Soft, non-tender, non-distended with bowel sounds. MUSCULOSKELETAL: No tenderness, deformities, or effusions noted on gross inspection. EXTREMITIES: No cyanosis, clubbing or edema. SKIN: Inspection of the skin reveals no rashes NEUROLOGIC: Alert and oriented x 4. Strength and sensation to light touch were grossly intact x 4. Course Course Course Narrative: RME: 58 year-old M w/ PMHx JULIA, presenting to the ED c/o tongue pain/?cut tongue with difficulty/inability to eat 2/2 pain. Admits bit his tongue 3 days ago. R posterior throat with some erythema, +ttp, no appreciable cut/abscess. Uvula midline Rapid strep & Labs ordered Full HPI, ROS and PE to be performed by primary ED provider. Medical Decision Making Medical Decision Making MDM Narrative: 58-year-old male with history and clinical presentation consistent with having bitten his tongue on Tuesday and still has a sore tongue, on clinical exam there is appearance of likely oral thrush he denies any fevers or chills and I reviewed all investigations which demonstrates a mild leukocytosis though patient is afebrile and viral testing for strep and COVID/influenza are negative. There is no evidence of anemia/thrombocytopenia/left shift. Chemistry indices are grossly within normal limits without TANI or electrolyte/liver enzyme derangements. My interpretation is it patient may have bitten his tongue but he has appearance of oral thrush and had a treatment of magic mouthwash here in the emergency room and was discharged with a short course. Differential Diagnosis Differential Diagnoses: The differential diagnosis associated with the presentation includes Please see the discussion above Admission/Observation Consideration of admission/observation: Escalation of care including admission/observation considered Please see the discussion above Lab Data MDM Lab Attestation statement: I reviewed the patient's lab results. Please see the discussion above 09/06/23 20:57 09/06/23 20:57 Labs: Lab Results 09/06/23 Range/Units 20:57 WBC 12.2 H (4.8-10.8) X10*3/uL RBC 5.21 (4.60-5.80) X10*6/uL Hgb 15.3 (14.0-18.0) g/dl Hct 45.0 (42.0-52.0) % MCV 86.4 (80.0-98.0) fL MCH 29.4 (27.0-33.0) pg MCHC 34.0 (31.0-36.0) g/dl RDW 12.8 (11.0-16.0) % Plt Count 283 (160-400) X10*3/uL MPV 9.6 (9.4-12.4) fL Immature Gran % (Auto) 0.4 (0.0-0.4) % Neut % (Auto) 58.4 (45-73) % Lymph % (Auto) 30.1 (20-40) % Sutter % (Auto) 8.2 (2-11) % Eos % (Auto) 2.4 (0-4) % Baso % (Auto) 0.5 (0-2) % Lymph # (Auto) 3.7 (1.2-4.9) X10*3/uL Sutter # (Auto) 1.0 (0.1-1.2) X10*3/uL Eos # (Auto) 0.3 (0.0-0.4) X10*3/uL Baso # (Auto) 0.1 (0.0-0.2) X10*3/uL Abs Immat Gran (auto) 0.05 H (0.00-0.03) X10*3/uL Absolute Neuts (auto) 7.1 (2.0-8.3) x10*3/uL Absolute Nucleated RBC 0.000 (0.0-0.012) X10*3/uL Nucleated RBC % (auto) 0.0 (0.0-0.2) /100WBC Sodium 137 (135-145) mmol/L Potassium 4.4 (3.3-5.1) mmol/L Chloride 106 (96-108) mmol/L Carbon Dioxide 22 (22-29) mmol/L Anion Gap 13 (12-20) BUN 9 (9-16) mg/dL Creatinine 0.81 (0.5-1.4) mg/dL Estim Creat Clear Calc 94.4 Estimated GFR > 60 Random Glucose 105 (60-115) mg/dL Calcium 9.9 (8.4-10.2) mg/dL Magnesium 2.3 (1.6-2.6) mg/dL Total Bilirubin 0.3 (0.0-1.0) mg/dL Direct Bilirubin 0.1 (0.0-0.5) mg/dL AST 25 (5-37) U/L ALT 26 (0-40) U/L Alkaline Phosphatase 83 (39-117) U/L Total Protein 8.7 H (6.5-8.0) g/dL Albumin 4.5 (3.5-5.0) g/dL COVID-19 (YAS) Negative (Negative) COVID-19 Clin Com See Note Influenza Type A (HILDA) Negative (Negative) Influenza Type B (HILDA) Negative (Negative) Influenza A & B Note See Note S. pyogenes GrpA HILDA Negative (Negative) External Record Review External record reviewed: Outpatient record and Prior outpatient labs Discharge Plan Discharge Clinical Impression: Oral thrush Patient Disposition: Home, Self-Care Instructions: Oral Candidiasis (ED) Additional Instructions: 1. Please complete the course of medication for oral thrush. 2. Please follow-up with primary care doctor. Return to the ER for any worsening symptoms. Prescriptions: New Magic Mouthwash Diphen/Nystat/Antacid 1:1:1 240 mL suspension 10 ml PO BID 5 Days Qty: 240 0RF Rx Instructions: nystatin 100,000 unit/mL oral suspension 80 mL; diphenhydramine 12.5 mg/5 mL oral liquid 80 mL; aluminum-mag hydroxide-simethicone 400 mg-400 mg-40 mg/5 mL oral susp 80 mL; Per 240 mL No Action (DME) blood pressure monitor Kit See Rx Instructions .Route Qty: 1 0RF Rx Instructions: As directed (DME) CPAP Machine/Device Device See Rx Instructions .Route Qty: 1 0RF Rx Instructions: autoPAP mode 6-20 cmH2O ipratropium bromide 21 mcg (0.03 %) spray,non-aerosol 2 spray intranasal BID Qty: 90 1RF lisinopril 20 mg tablet 20 mg PO DAILY 90 Days Qty: 90 1RF sulfamethoxazole-trimethoprim [Bactrim DS] 800-160 mg tablet 1 tab PO BID 10 Days Qty: 20 0RF Referrals: Isamar Diaz MD [Primary Care Provider] -
[2023-09-06 21:02] LABS: MANUAL DIFF FLAG NO
[2023-09-06 21:04] LABS: Basophils Absolute Auto 0.1 X10*3/uL (0.0-0.2); Basophils Percent Auto 0.5 % (0-2); Eosinophils Absolute Auto 0.3 X10*3/uL (0.0-0.4); Eosinophils Percent Auto 2.4 % (0-4); Hemoglobin 15.3 g/dl (14.0-18.0); Imm Gran Abs Auto 0.05 X10*3/uL (0.00-0.03); Imm Gran Pct Auto 0.4 % (0.0-0.4); Lymphocytes Absolute Auto 3.7 X10*3/uL (1.2-4.9); Lymphocytes Percent Auto 30.1 % (20-40); Mean Corpuscular Hemoglobin 29.4 pg (27.0-33.0); Mean Corpuscular Volume 86.4 fL (80.0-98.0); Mean Platelet Volume 9.6 fL (9.4-12.4); Monocytes Percent Auto 8.2 % (2-11); Neutrophils Absolute Auto 7.1 x10*3/uL (2.0-8.3); Neutrophils Percent Auto 58.4 % (45-73); Platelet Count 283 X10*3/uL (160-400); Red Blood Count 5.21 X10*6/uL (4.60-5.80); Red Cell Distribution Width 12.8 % (11.0-16.0); White Blood Count 12.2 X10*3/uL (4.8-10.8)
[2023-09-06 21:20] LABS: Alanine Aminotransferase 26 U/L (0-40); Albumin Level 4.5 g/dL (3.5-5.0); Alkaline Phosphatase 83 U/L (39-117); Anion Gap 13 (12-20); Aspartate Amino Transferase 25 U/L (5-37); Bilirubin Direct 0.1 mg/dL (0.0-0.5); Bilirubin Total 0.3 mg/dL (0.0-1.0); Blood Urea Nitrogen 9 mg/dL (9-16); Calcium 9.9 mg/dL (8.4-10.2); Carbon Dioxide 22 mmol/L (22-29); Chloride 106 mmol/L (96-108); Creatinine Clr Calc Pharmacy 94.4; Estimated Glomerular Filt Rate > 60; Glucose Random 105 mg/dL (60-115); Magnesium 2.3 mg/dL (1.6-2.6); Potassium 4.4 mmol/L (3.3-5.1); Sodium 137 mmol/L (135-145); Total Protein 8.7 g/dL (6.5-8.0)
[2023-09-06 21:21] LABS: IDNOW Serial# 152EDE1D; Influenza A Negative (Negative); Influenza B2 Negative (Negative)
[2023-09-06 21:23] LABS: COVID-19 Test Negative (Negative); IDNOW Serial# 08D9AD1C
[2023-09-06 21:32] LABS: IDNOW Serial# 6674DD1D
[2023-09-06 21:33] LABS: Strep A Nucleic Acid Negative (Negative)
[2023-09-07 01:40] VITALS: BP 183/75; PULSE 68; RESP 16; TEMP 36.6; O2SAT 96
--- NOTE | 2023-09-07 01:41 | PC.NURSE ---
pt reports biting tongue accidentally. R. side swollen. pt reports pain. nad. resp even and unlabored. able to speak full clear sentences. awaiting primary eval by ed provider.
[2023-09-07] MEDS: Mag&Al/Sim/Diphenhyd/Lidocaine 10 ML ORAL.SUSP PO (04:12)
== END 2023-09-07 04:16 | disposition home or self-care (01) ==
PROVIDERS: Physician Assistant; Emergency Provider Student in an Organized Health Care Education/Training Program; PCP Internal Medicine
DX: B37.0 Candidal stomatitis (principal); Z79.899 Other long term (current) drug therapy; Z11.52 Encounter for screening for COVID-19
CPT/HCPCS: 80048; 80076; 83735; 85025; 87502; 87635; 87651; 99283

== ENCOUNTER 2023-09-14 09:56 | Outpatient (REF) | payer OTHER, SELFPAY ==
--- NOTE | ~2023-09-14 | XR_ITS ---
EXAMINATION: XR KNEE, LEFT CLINICAL INFORMATION: Pain in left knee COMPARISON: None available. TECHNIQUE: 3 views of the left knee. FINDINGS: No fracture. Small joint effusion. There is moderate to marked narrowing of the medial and patellofemoral joint compartments. Tricompartment marginal aspects are noted. There are several small calcific densities in the posterior knee joint which raises the possibility of loose bodies within the joint. XR/XR knee LT 3V IMPRESSION: 1. Moderate to marked osteoarthritis. 2. Question of loose bodies within the posterior knee joint.
--- NOTE | ~2023-09-14 | XR_ITS ---
EXAMINATION: XR KNEE, RIGHT CLINICAL INFORMATION: Pain in right knee COMPARISON: None available. TECHNIQUE: Four views of the right knee. FINDINGS: No fracture. Positioning limits evaluation for joint effusion. No fracture.. There is severe narrowing of the medial joint compartment and patellofemoral joint compartments with [id number] appearance in the medial joint compartment. Tricompartment marginal osteophytes. There are several calcific densities within the posterior joints and on the lateral view which could represent loose bodies within the joint. Quadriceps enthesopathy is noted. XR/XR knee RT 3V IMPRESSION: 1. Severe osteoarthritis. 2. Possible loose bodies within the joint. 3. No acute bony abnormality.
== END 2023-09-14 09:57 | disposition home or self-care (01) ==
LOC: HO.HOSX 09:56
PROVIDERS: Visit Provider Orthopaedic Surgery
DX: M25.561 Pain in right knee (principal); M25.562 Pain in left knee; Z79.899 Other long term (current) drug therapy
CPT/HCPCS: 73562; 99202

== ENCOUNTER 2023-09-14 10:47 | Outpatient (AMB) | payer OTHER, SELFPAY ==
[2023-09-14 10:49] VITALS: BMI 31.4
--- NOTE | 2023-09-14 10:49 | A.OFFVIS_ITS ---
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 Patient reports his pain is a 6 on the 1-10 pain scale , stairs cause alot of pain and it has been going on for about 3 years he has used NSAIDS with no relief. He denies injury and hasn't had any injections. The patient has tried wearing a knee brace which gives him mild relief. He denies any locking or giving way. Allergies No Known Allergies Allergy (Verified 09/14/23 11:08) Medication List - Last Reconciled 09/14/23 by Michael Mae MD blood pressure monitor As directed CPAP (CPAP Machine/Device) autoPAP mode 6-20 cmH2O ipratropium bromide 2 sprays intranasal BID lisinopril 20 mg PO DAILY 90 days Magic Mouthwash Diphen/Nystat/Antacid 1:1:1 10 mL PO BID 5 days sulfamethoxazole-trimethoprim 800-160 mg (Bactrim DS) 1 tab PO BID 10 days PFSH Medical History Daytime somnolence Mild recurrent major depression Screen for colon cancer Obesity (BMI 30-39.9) BPH (benign prostatic hyperplasia) Cataract Renal calculi Colon polyps History of hypertension Overweight (BMI 25.0-29.9) Surgical History H/O colonoscopy H/O lithotripsy Family History Mother Mental health disorder Father Hypertension Dialysis complication Social History Housing: Apartment Alcohol intake: never Patient Tobacco Use Status: Former Tobacco user Tobacco use type: Cigarette e-Cigarette/Vaping Use: Never Used Second Hand Smoke Exposure: No Substance Use Type: Opiates service: No Current occupational status: unemployed Cognitive needs: No Hearing needs: No Vision needs: Yes Physical Exam Vital Signs: BMI result Body Mass Index 31.4 Const Other: Well-nourished well-developed very friendly male awake alert and oriented x3 in no acute distress Extrem Other: Bilateral lower extremity examination shows good capillary refill, no skin lesions noted, normal sensation light touch Bilateral knee examination shows minimal effusions, palpable crepitus with range of motion, pain with range of motion, no instability Results Reviewed Results Reviewed: X-rays of the patient's bilateral knee show moderate to severe joint space narrowing most significant in the medial compartments, subchondral sclerosis, no acute bony abnormalities Assessment & Plan Assessment & Plan (1) Knee pain, bilateral: Code(s): M25.561 - Pain in right knee; M25.562 - Pain in left knee Plan Mr. Manuel presents with bilateral knee pains due to degenerative joint disease. I had a lengthy discussion with the patient regarding the treatment options. We will hold off on an injection at this time. I did give him a prescription to go to formal physical therapy here at [facility]. Activity modifications were also discussed at length with the patient. Will follow up with me on an as-needed basis should his symptoms not plateau at an unacceptable level over the next few months. Feel free to call me at any time should questions regarding his orthopedic management arise. Thank you very much for asking me to see this very friendly gentleman. I spent 22 minutes in reviewing the patient's records and imaging studies, seeing the patient and documenting in the medical record. Orders: Orders XR knee RT 3V Today M25.561 - Pain in right knee XR knee LT 3V Today M25.562 - Pain in left knee PT Evaluation and Treatment Today M25.561 - Pain in right knee, M25.562 - Pain in left knee Coding Level of Care Code New Pt Level 2 (02477) Diagnoses Knee pain, bilateral M25.561; M25.562
== END 2023-09-14 11:33 | disposition home or self-care (01) ==
PROVIDERS: PCP Internal Medicine; Visit Provider Orthopaedic Surgery
DX: M25.561 Pain in right knee (principal); M25.562 Pain in left knee
CPT/HCPCS: 99202

== ENCOUNTER 2023-10-17 07:06 | Outpatient (REF) | payer OTHER, SELFPAY ==
[2023-10-17 08:45] LABS: Alanine Aminotransferase 28 U/L (0-40); Albumin Level 4.1 g/dL (3.5-5.0); Alkaline Phosphatase 72 U/L (39-117); Anion Gap 12 (12-20); Aspartate Amino Transferase 30 U/L (5-37); Bilirubin Total 0.3 mg/dL (0.0-1.0); Blood Urea Nitrogen 10 mg/dL (9-16); Calcium 9.3 mg/dL (8.4-10.2); Carbon Dioxide 20 mmol/L (22-29); Chloride 109 mmol/L (96-108); Cholesterol 153 mg/dL (<200); Estimated Glomerular Filt Rate > 60; Glucose Fasting 90 mg/dL (60-99); HDL Cholesterol 40 mg/dL (>40); LDL Cholesterol Calculated 98 mg/dL (<100); Potassium 4.4 mmol/L (3.3-5.1); Sodium 137 mmol/L (135-145); Total Protein 7.9 g/dL (6.5-8.0); Triglycerides 79 mg/dL (<150)
[2023-10-17 09:03] LABS: Prostate Specific Antigen 0.38 ng/mL (<0.05-4.0)
== END 2023-10-17 07:07 | disposition home or self-care (01) ==
LOC: HO.LAB 07:06
PROVIDERS: Absent Provider Urology; PCP Internal Medicine; Visit Provider Internal Medicine
DX: Z00.00 Encounter for general adult medical examination without abnormal findings (principal); E78.5 Hyperlipidemia, unspecified; N40.0 Benign prostatic hyperplasia without lower urinary tract symptoms
CPT/HCPCS: 36415; 80053; 80061; 84153

== ENCOUNTER 2023-10-21 09:00 | Outpatient (RCR) | payer OTHER, SELFPAY ==
--- NOTE | 2023-09-23 12:11 | MHC.PT.EP ---
[facility] [place] Office [place] Office [place] Office [address] Ronda Terry [address] [phone] F: [phone] F: [phone] F: [phone] F: [phone] Physical Therapy Plan of Care Date of Evaluation: 09/23/23 Date of Surgery: Diagnosis: BILATERAL KNEE PAIN Assessment: 58 YO MALE REF TO PT W H/O PROGRESSIVE , BILATERAL OA KNEE PAIN . 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 OBJECTIVE FINDINGS: DECR PATELLAR MOB, TIGHT HS/ (+) KNEE EXT DEFICIT (-20* MIMI); GEN STRENGTH DEFICITS IN LUMBOPELVIC/ PROX HIPS, AND FLUCTUATING PAIN IN MIMI KNEES. HE IS MOTIVATED TO LEARN SELF- SX MGMT TECHN, EASE PAIN, IMPROVE MOBILITY, AND DEV A HEP. Frequency and Duration: The patient will be seen 2 x WK x 4 WKS Short Term Goals: *DECREASE MIMI KNEE PAIN TO 2-3/10 W REG ADLs *IMPROVE POSTERIOR LEs FLEXIB (END RANGE KNEE EXT) , CALVES AND PSOAS FLEXIB *DEV HEP *IMPROVE LEs MM ACTIVATION W TRANSITIONAL TASKS, DECR UEs COMPENSATION Inspector Cold Working Goals: *Pt INDEP HEP AND SELF SX MGMT TECHN *Pt INCREASE ADL/ FITNESS [place] EVIDENT W IMPROVED LEFI, AT EVAL 25/80 *Pt DISPLAY MORE EFFICIENT GAIT MECH ON LEVEL AND STAIRS Treatment Plan: Modalities to reduce pain, spasms and effusion. Manual therapy to restore motion and function. Therapeutic exercise to improve strength and flexibility. Neuromuscular re-education for posture and balance. Therapeutic activities to return to functional activities of daily living. Electronically signed by: SHAMIKA KAUFMAN,PT Please sign and return to therapist. Thank you for your referral.
--- NOTE | 2023-10-21 14:39 | MHC.PT.DC ---
[facility] [place] Office [place] Office [place] Office [address] Ronda Terry [address] [facility] [phone] F: [phone] F: [phone] F: [phone] F: [phone] Physical Therapy Discharge Report Diagnosis: BILATERAL KNEE PAIN Date of Surgery: Date of Evaluation: 09/23/23 Date of Discharge: 10/21/23 Treatments to Date: 8 Cancellations to Date: 0 No Shows to Date: 0 Discharge Status: Achieved Goals Improved Function Independent with HEP Discharge Summary: THE Pt HAS MET HIS PT GOALS AT THIS TIME, EVIDENT W IMPROVED MIMI KNEE/HIP AROM, WFL SQUAT MECHANICS, INCREASED LEs STRENGTH , AND IMPROVED DYNAMIC BALANCE. HE IS VERY MOTIVATED W HIS HEP AND FITNESS ROUTINE, W/O EXACERBATING HIS SXS. HIS LEFI WAS 25/80 AT EVAL AND TODAY AT D/C, 63/80. Electronically signed by: SHAMIKA KAUFMAN,PT Please sign and return to therapist. Thank you for your referral.
== END 2023-10-21 14:35 | disposition home or self-care (01) ==
LOC: HO.PT 09:00
PROVIDERS: PCP Internal Medicine; Visit Provider Orthopaedic Surgery
DX: M25.561 Pain in right knee (principal); M25.562 Pain in left knee
CPT/HCPCS: 97110; 97161; 97530

== ENCOUNTER 2023-10-21 13:09 | Outpatient (AMB) | payer OTHER, SELFPAY ==
--- NOTE | 2023-10-21 13:26 | MHC.OFFVIS ---
Intake Intake Visit Reasons: 6M PSA(set)vm to confirm Intake Note: Patient presents today for a follow-up on PSA Meds- None Allergies to Antibiotic- No Known Allergies Blood Thinner- None Post Void Residual: 58ml Patient Symptoms: None Assistant Tennis Professional Required: No Accompanied by: Self / Same As Patient Allergies No Known Allergies Allergy (Verified 10/21/23 13:36) Medication List - Last Reconciled 10/21/23 by Maxime Humphreys MD blood pressure monitor As directed CPAP (CPAP Machine/Device) autoPAP mode 6-20 cmH2O ipratropium bromide 2 sprays intranasal BID lisinopril 20 mg PO DAILY 90 days Magic Mouthwash Diphen/Nystat/Antacid 1:1:1 10 mL PO BID 5 days HPI HPI Comments History of Present Illness Details Ziggy is a pleasant male. He is a patient of Dr. White. He is seen for the following urologic conditions - lower urinary tract symptoms PVR 60 Effective emptying Lower urinary tract symptoms Prior medications include combination therapy doxazosin 8 mg with finasteride, tamsulosin 03/06 - Greenlight laser Initial symptomatology - nocturia x5, weakness of stream, hesitancy, feeling of incomplete emptying - AUA score over 20 with bother 4 PVR 50 cc PFSH Medical History Daytime somnolence Mild recurrent major depression Screen for colon cancer Obesity (BMI 30-39.9) BPH (benign prostatic hyperplasia) Cataract Renal calculi Colon polyps History of hypertension Overweight (BMI 25.0-29.9) Surgical History H/O colonoscopy H/O lithotripsy Family History Mother Mental health disorder Father Hypertension Dialysis complication Social History Housing: Apartment Alcohol intake: never Patient Tobacco Use Status: Former Tobacco user Tobacco use type: Cigarette e-Cigarette/Vaping Use: Never Used Second Hand Smoke Exposure: No Substance Use Type: Opiates service: No Current occupational status: unemployed Cognitive needs: No Hearing needs: No Vision needs: Yes Review of Systems Const Denies chills and Denies fever(s) Card Reports no additional complaints and Denies syncope Resp Denies cough GI Denies abdominal pain and Denies heartburn Reports as per HPI and Denies change in libido Neuro Denies syncope Psych Denies change in libido Endo Denies change in libido Physical Exam Const General: cooperative, healthy appearing, comfortable and no acute distress Orientation/consciousness: patient oriented x3 HEENT Face and sinus: Yes normal facial exam Mouth: moist mucous membranes Neck Neck: Yes normal visual inspection, Yes full ROM and Yes trachea midline Chest Chest palpation & inspection: normal inspection of the chest Resp Effort & Inspection: normal respiratory effort, able to speak in complete sentences and no respiratory distress GI Inspection: Yes normal to inspection Back/Spine/Pelvis Cervical Spine: normal cervical lordosis Thoracic/Lumbar Spine: thoracic and lumbar spine normal to inspection Skin General skin exam: no rashes or lesions noted Neuro General: patient oriented x3, gait normal, tone normal and moves all extremities Extrem General: Yes normal to inspection and Yes capillary refill normal Office Procedures Post Void Residual Post Residual Void Post Void Residual (PVR): 58 [id number] Void Residual by ultrasound Assessment & Plan Assessment & Plan (1) Nocturia more than twice per night: Code(s): R35.1 - Nocturia (2) BPH (benign prostatic hyperplasia): Code(s): N40.0 - Benign prostatic hyperplasia without lower urinary tract symptoms Plan 12 m f/u Orders: Orders AMB Post Void Residual by ultrasound Today R33.9 - Retention of urine, unspecified Prostate Specific Antigen 364 Days N40.0 - Benign prostatic hyperplasia without lower urinary tract symptoms Patient Instructions: Imaging studies, laboratory and physical exam results were discussed and reviewed in detail. No major barriers to patient understanding were identified. An opportunity to ask questions regarding the treatment plan was provided. All questions were answered. The patient expressed understanding and agreement with the above treatment plan. The patient is aware they should contact our office by phone for worsening of their current condition or the appearance of new urologic symptoms. Compliance is encouraged with any medications and followup testing that is ordered. It is a privilege to participate in the urologic care of your patient. If you have any questions or concerns regarding treatment for the above conditions, or other urologic issues, please do not hesitate to contact me. The office telephone contact is [phone]. This note is constructed using voice recognition software. While every effort has been made to ensure accuracy warehouse representative errors may have been included. Yours sincerely, Dr Maxime Humphreys MD, [facility] - Urology Providers of Expert, Compassionate Care for the Genitourinary System Coding Level of Care Code Est Pt Level 3 (26651) Diagnoses Nocturia more than twice per night R35.1 BPH (benign prostatic hyperplasia) N40.0 CPT Codes Post Residual Void - PVR CPT Code: [id number]-[id number] Void Residual by ultrasound ([id number])
== END 2023-10-21 13:53 | disposition home or self-care (01) ==
PROVIDERS: PCP Internal Medicine; Visit Provider Urology
DX: R35.1 Nocturia (principal); N40.0 Benign prostatic hyperplasia without lower urinary tract symptoms
CPT/HCPCS: 99213

== ENCOUNTER → 2023-10-21 13:09 | Outpatient (BNVA) | payer OTHER, SELFPAY | PROVIDERS: PCP Internal Medicine; Visit Provider Urology | DX: N40.1 Benign prostatic hyperplasia with lower urinary tract symptoms (principal); R35.1 Nocturia | CPT/HCPCS: 51798; 99212 ==

== ENCOUNTER 2023-12-29 13:51 | Outpatient (AMB) | payer OTHER, SELFPAY ==
[2023-12-29 14:10] VITALS: BP 142/70; PULSE 77; O2SAT 97; BMI 30.5
--- NOTE | 2023-12-29 14:10 | MHC.OFFVIS ---
Vital Signs 12/29/23 14:10 Height 5 ft 4 in Weight 177 lb 7.554 oz BMI 30.5 BP 142/70 H Blood Pressure Location Lt brachial Position Sitting Pulse 77 Pulse Source Pulse Oximeter Pulse Oximetry (%) 97 Oxygen Delivery Method Room Air Intake Visit Reasons: Obstructive sleep apnea Intake Note: pt is here for follow up and feels good. Slip Cover Maker Required: No Allergies No Known Allergies Allergy (Verified 12/29/23 14:31) Medication List - Last Reconciled 12/29/23 by Izzy Starr MD blood pressure monitor As directed CPAP (CPAP Machine/Device) autoPAP mode 6-20 cmH2O ipratropium bromide 2 sprays intranasal BID lisinopril 20 mg PO DAILY 90 days Magic Mouthwash Diphen/Nystat/Antacid 1:1:1 10 mL PO BID 5 days Do you need a note to return to daycare/school/sports/work: No HPI HPI Obstructive sleep apnea: Details: 58 years old very pleasant gentleman is a case of obstructive sleep apnea. He claims that this the best thing which happened in his life, to have the CPAP. He sleeps like a log. Has no issues with the mask or CPAP machine. He does use ipratropium nasal spray 2 spray in the nostrils before putting on the CPAP. 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 HE IS VERY HAPPY WITH HIS LIFESTYLE. HE MISSES USING THE CPAP ABOUT 2 OR 3 NIGHTS EVERY MONTH AND THIS IS BECAUSE ON THOSE NIGHTS HE HAPPENS TO DRINK HEAVY. [facility] Medical History Daytime somnolence Mild recurrent major depression Screen for colon cancer Obesity (BMI 30-39.9) BPH (benign prostatic hyperplasia) Cataract Renal calculi Colon polyps History of hypertension Overweight (BMI 25.0-29.9) Surgical History H/O colonoscopy H/O lithotripsy Family History Mother Mental health disorder Father Hypertension Dialysis complication Social History Housing: Apartment Alcohol intake: never Patient Tobacco Use Status: Former Tobacco user Tobacco use type: Cigarette e-Cigarette/Vaping Use: Never Used Second Hand Smoke Exposure: No Substance Use Type: Opiates service: No Current occupational status: unemployed Cognitive needs: No Hearing needs: No Vision needs: Yes Review of Systems Const All systems reviewed & are unremarkable except as noted in HPI and below Reports snoring Eyes Reports no additional complaints ENT Reports nasal congestion (AT NIGHT) Card Denies chest pain, Denies irregular heart rhythm and Denies leg edema Resp Reports cough (OCCASIONAL), Reports snoring and Denies wheezing GI Reports no additional complaints Reports nocturia Musc Reports no additional complaints Skin/Breast Reports system reviewed and no additional complaints, except as documented Neuro Reports no additional complaints Psych Reports no additional complaints Endo Reports no additional complaints Raheel/Lymph Reports no additional complaints Aller/Immun Denies wheezing Physical Exam Vital Signs: Last Vital Signs Pulse 77 12/29/23 14:10 BP 142/70 H 12/29/23 14:10 Pulse Ox 97 12/29/23 14:10 Oxygen Delivery Method Room Air 12/29/23 14:10 BMI result Body Mass Index 30.5 Const General: healthy appearing (EXCEPT FOR BEING OVERWEIGHT), comfortable, no acute distress, alert and awake Orientation/consciousness: patient oriented x3 HEENT Head: Yes normal to inspection General nose exam: No nasal polyps present and No nasal discharge present Face and sinus: Yes sinuses nontender Mouth: oropharynx abnormals (OROPHARYNX IS NARROW AND CROWDED, MALLAMPATI CLASS 4) Throat: Yes posterior oropharynx normal Eyes General: appearance normal, both eyes and all related structures Neck Neck: Yes normal visual inspection, Yes no lymphadenopathy, Yes trachea midline, Yes no JVD and Yes other (NECK CIRCUMFERENCE 17 IN) Thyroid: Thyroid normal Chest Chest palpation & inspection: normal inspection of the chest, normal palpation of entire chest wall and no tenderness Resp Effort & Inspection: normal respiratory effort Auscultation: clear to auscultation bilaterally, no crackles and no wheezes Cardio Palpation: normal PMI Rate: regular rate Rhythm: regular rhythm Heart sounds: no gallops and no murmurs Peripheral pulses: Peripheral pulses 2+ throughout GI Palpation (GI): Soft to palpation, nontender, No hepatosplenomegaly present and no masses Auscultation: normal bowel sounds Back/Spine/Pelvis Thoracic/Lumbar Spine: thoracic and lumbar spine normal to inspection Skin General skin exam: no rashes or lesions noted Neuro General: patient oriented x3 and no focal motor deficits Cranial nerves: Yes CN's II-XII intact bilaterally Extrem General: Yes normal to inspection, Yes no clubbing, cyanosis or edema and Yes no calf tenderness Psych Appearance: grossly normal and well kempt Speech and movement: Normal speech and movement present Results Reviewed Results Reviewed: COMPLIANCE REPORT IS REVIEWED AND HE HAS USED 27/30 NIGHTS, 90%. AVERAGE USE IT PER NIGHT 6 HOURS 41 MINUTES. PRESSURE USED MOSTLY 9.4 CM, RESIDUAL AHI ONLY 0.1 Assessment & Plan Assessment & Plan (1) Obesity (BMI 30-39.9): Comment: THIS GENTLEMAN IS MODERATELY OBESE, GRADUALLY LOSING WEIGHT. HE HAS LOST 6 LB OF WEIGHT IN THE LAST 6 MONTHS. Code(s): E66.9 - Obesity, unspecified Category: Medical Plan: COMMENDED FOR GOOD COMPLIANCE AND ALSO COMMENDED LOSING WEIGHT. ADVISED TO CONTINUE WATCHING HIS DIET. (2) JULIA (obstructive sleep apnea): Comment: HE HAS SEVERE OBSTRUCTIVE SLEEP APNEA. HE IS VERY COMPLIANT AND USES CPAP REGULARLY. HE MISSES ONLY A FEW NIGHTS PER MONTH. Code(s): G47.33 - Obstructive sleep apnea (adult) (pediatric) Category: Medical Plan: COMMENDED FOR GOOD COMPLIANCE AND ADVISED TO KEEP ON USING THE CPAP EVERY NIGHT AT LEAST 6 HOURS PER NIGHT. Coding Level of Care Code Est Pt Level 3 (03530) Diagnoses Obesity (BMI 30-39.9) E66.9 JULIA (obstructive sleep apnea) G47.33
== END 2023-12-29 14:32 | disposition home or self-care (01) ==
PROVIDERS: PCP Internal Medicine; Visit Provider Internal Medicine
DX: E66.9 Obesity, unspecified (principal); G47.33 Obstructive sleep apnea (adult) (pediatric)
CPT/HCPCS: 99213

== ENCOUNTER → 2023-12-29 13:51 | Outpatient (BNVA) | payer OTHER, SELFPAY | PROVIDERS: PCP Internal Medicine; Visit Provider Internal Medicine | DX: G47.33 Obstructive sleep apnea (adult) (pediatric) (principal); E66.9 Obesity, unspecified; Z68.30 Body mass index [BMI] 30.0-30.9, adult | CPT/HCPCS: 99212 ==

== ENCOUNTER 2024-03-05 16:41 | Outpatient (AMB) | payer OTHER, SELFPAY ==
--- NOTE | 2024-03-05 16:43 | A.OFFPC_ITS ---
Vital Signs 03/05/24 16:44 03/05/24 20:10 Height 5 ft 4 in Weight 170 lb BMI 29.2 BP 152/70 H 150/70 H Blood Pressure Location Lt brachial Lt brachial Position Sitting Sitting Intake Visit Reasons: BP Intake Note: Patient here for a follow up BP, ? cyst, frequent headaches Burglar Alarm Inspector Required: No Accompanied by: Self / Same As Patient Allergies No Known Allergies Allergy (Verified 03/05/24 16:52) Medication List - Last Reconciled 03/05/24 by Isamar White MD blood pressure monitor As directed CPAP (CPAP Machine/Device) autoPAP mode 6-20 cmH2O ipratropium bromide 1 spray intranasal BID lisinopril 20 mg PO DAILY 90 days Tobacco use date assessed: 08/31/23 Dental Screening Dental Screen Date: 08/31/23 HPI HPI Comments History of Present Illness Details This is a 58-year-old male with hypertension comes today for follow-up on his blood pressure. Blood pressure elevated and I will increase lisinopril from 20 mg to 40 mg. Blood pressure will be recheck in 3 weeks by nurse navigator. He also has a left buttock abscess that has improved but is still present and I will refer him to surgery. No chest pain or shortness on breath. [facility] Medical History (Updated 03/05/24 @ 16:58 by Isamar White MD) Daytime somnolence Mild recurrent major depression Screen for colon cancer Obesity (BMI 30-39.9) BPH (benign prostatic hyperplasia) Cataract Renal calculi Colon polyps History of hypertension Overweight (BMI 25.0-29.9) Surgical History H/O colonoscopy H/O lithotripsy Family History Mother Mental health disorder Father Hypertension Dialysis complication Social History Housing: Apartment Alcohol intake: never Patient Tobacco Use Status: Former Tobacco user Tobacco use type: Cigarette e-Cigarette/Vaping Use: Never Used Second Hand Smoke Exposure: No Substance Use Type: Opiates service: No Current occupational status: unemployed Cognitive needs: No Hearing needs: No Vision needs: Yes Questionnaire Thrive Questionnaire Date Thrive assessed: 08/31/23 JESSICA-7 AMB Questionnaire JESSICA-7 Date JESSICA - 7 assessed: 08/31/23 Source: Developed by Drs. Osmin Gong, Raine Sánchez, Serg Mclain and colleagues, with an educational allan from [employer]. Review of Systems Const All systems reviewed & are unremarkable except as noted in HPI and below Card Denies chest pain at rest, Denies chest pain with activity, Denies edema, Denies irregular heart rhythm, Denies claudication, Denies dyspnea, Denies dyspnea on exertion, Denies orthopnea, Denies paroxysmal nocturnal dyspnea and Denies slow heart rate Resp Denies cough, Denies dyspnea and Denies dyspnea on exertion GI Denies abdominal pain, Denies change in bowel habits, Denies excessive flatus, Denies nausea and Denies vomiting Neuro Denies behavioral changes and Denies lack of coordination Psych Denies behavioral changes Physical exam (Primary Care) Vital Signs: Last Vital Signs BP 152/70 H 03/05/24 16:44 BMI result Body Mass Index 29.2 Tobacco/Smoking Status: Tobacco use Status Tobacco use date assessed 08/31/23 03/05/24 16:46 Patient Tobacco Use Status Former Tobacco user 03/05/24 16:46 Tobacco use type Cigarette 03/05/24 16:46 e-Cigarette/Vaping Use Never Used 03/05/24 16:46 Thrive Assessment: Date of Thrive Assessment Date Thrive assessed 08/31/23 03/05/24 16:46 Resp Effort & Inspection: normal respiratory effort Auscultation: clear to auscultation bilaterally Cardio Jugular venous distension: no JVD Rate: regular rate Rhythm: regular rhythm Heart sounds: S1 normal heart sound present and S2 normal heart sound present Extrem General: Yes full ROM Assessment and Plan Assessment & Plan (1) Essential hypertension: Code(s): I10 - Essential (primary) hypertension Plan: Increase lisinopril. Blood pressure goal is equal or less than 130/80. (2) Left buttock abscess: Code(s): L02.31 - Cutaneous abscess of buttock Plan: Referred to surgery. Orders: Referrals General Surgery Referral L02.31 - Cutaneous abscess of buttock Medications: New lisinopril 40 mg PO DAILY 90 tabs 1RF 90 days Discontinued lisinopril Discontinued Reason: Patient Completed Course 20 mg PO DAILY 90 days 90 tabs 1RF I10 - Essential (primary) hypertension Coding Level of Care Code Est Pt Level 3 (77767) Complex EM visit Add On G2211 Diagnoses Essential hypertension I10 Left buttock abscess L02.31 Time Spent (min) 19
[2024-03-05 16:44] VITALS: BP 152/70; BMI 29.2
[2024-03-05 20:10] VITALS: BP 150/70
== END 2024-03-05 17:02 | disposition home or self-care (01) ==
PROVIDERS: PCP Internal Medicine; Visit Provider Internal Medicine
DX: I10 Essential (primary) hypertension (principal); L02.31 Cutaneous abscess of buttock
CPT/HCPCS: 99213; G2211

== ENCOUNTER 2024-03-13 09:45 | Outpatient (AMB) | payer OTHER, SELFPAY ==
--- NOTE | 2024-03-13 09:48 | MHC.OFFVIS ---
Vital Signs 03/13/24 09:49 Height 5 ft 4 in Weight 172 lb BMI 29.5 Intake Visit Reasons: Abscess~ Lt buttock Intake Note: This patient was referred by Dr. Ozuna for abscess of left buttock assessment. Pt c/o; reports left buttock abscess. 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 It spontaneously drained. The areas hardened and he presents here for further evaluation. He has had cysts and infections before but number in this area. He did not go to the ER or seek medical doctor for this. Chart was reviewed and patient evaluated [facility] Medical History Daytime somnolence Mild recurrent major depression Screen for colon cancer Obesity (BMI 30-39.9) BPH (benign prostatic hyperplasia) Cataract Renal calculi Colon polyps History of hypertension Overweight (BMI 25.0-29.9) Surgical History H/O colonoscopy H/O lithotripsy Family History Mother Mental health disorder Father Hypertension Dialysis complication Social History Housing: Apartment Alcohol intake: never Patient Tobacco Use Status: Former Tobacco user Tobacco use type: Cigarette e-Cigarette/Vaping Use: Never Used Second Hand Smoke Exposure: No Substance Use Type: Opiates service: No Current occupational status: unemployed Cognitive needs: No Hearing needs: No Vision needs: Yes Physical Exam Vital Signs: BMI result Body Mass Index 29.5 Skin Other: Patient has an indurated area of the left mid buttock. No evidence of any fluctuance or absence but is definitely firm. Under sterile technique, this was aspirated and no purulence was retrieved. Dressing applied. Well tolerated Office Procedures Aspiration of Seroma Details: See H&P for procedure please Aspiration of Seroma: 14418 Seroma Aspiration All charges added?: Procedure code (CPT) selection complete Assessment & Plan Assessment & Plan (1) Left buttock abscess: Code(s): L02.31 - Cutaneous abscess of buttock Category: Surgical Plan: At present, no acute surgical issues requiring incision and drainage or further intervention. Patient was reassured this process will resolve in 4-6 weeks. Should there be any issues or setbacks, patient was instructed to call the office or we will otherwise follow-up p.r.n.. All questions answered. Orders: Orders AMB Aspiration of Seroma Today L02.31 - Cutaneous abscess of buttock Coding Level of Care Code New Pt Level 4 (32365) Diagnoses Left buttock abscess L02.31 CPT Codes Aspiration of Seroma ([id number])
[2024-03-13 09:49] VITALS: BMI 29.5
== END 2024-03-13 10:06 | disposition home or self-care (01) ==
PROVIDERS: PCP Internal Medicine; Referring Provider Internal Medicine; Visit Provider Surgery
DX: L02.31 Cutaneous abscess of buttock (principal)
CPT/HCPCS: 10160; 99204

== ENCOUNTER → 2024-03-13 09:45 | Outpatient (BNVA) | payer OTHER, SELFPAY | PROVIDERS: PCP Internal Medicine; Referring Provider Internal Medicine; Visit Provider Surgery | DX: L02.31 Cutaneous abscess of buttock (principal) | CPT/HCPCS: 10160; 99202 ==

== ENCOUNTER 2024-04-17 13:14 | Emergency (ER) | payer OTHER, SELFPAY ==
[2024-04-17 13:24] VITALS: BP 129/63; PULSE 76; RESP 18; TEMP 36.6; O2SAT 98; BMI 28.8
--- NOTE | 2024-04-17 13:26 | ED_ITS ---
HPI - General Adult General Chief complaint: Wound/Laceration Stated complaint: Abscess R leg Time Seen by Provider: 04/17/24 13:26 Source: patient, RN notes reviewed and old records reviewed Mode of arrival: ambulatory Limitations: no limitations History of Present Illness ED Provider: Jorje AMEZQUITA narrative: 58-year-old male presents for evaluation of redness, swelling and pain to the back of his left leg. Patient thinks he may have some type of infection in the area. He reports he has had pain for the last 5 days. It is worse with sitting down. He denies any fevers, chills. He is not a diabetic Denies any trauma to the area Related Data Previous Rx's ?Medication ?Instructions ?Recorded blood pressure monitor #1 ea 09/12/22 CPAP (CPAP Machine/Device) #1 ea 11/12/22 ipratropium bromide 21 mcg (0.03 1 spray intranasal BID #90 mL 01/16/24 %) nasal spray lisinopril 40 mg tablet 40 mg PO DAILY 90 days #90 tabs 03/05/24 cephalexin 500 mg capsule 500 mg PO QID #28 caps 04/17/24 Allergies Allergy/AdvReac Type Severity Reaction Status Date / Time No Known Allergies Allergy Verified 04/17/24 13:26 Review of Systems Constitutional: Constitutional: Denies body ache(s), Denies chills and Denies fever(s) Eyes: Eyes: Denies blurry vision ENT: Denies sore throat Cardiovascular: Cardiovascular: Denies chest pain and Denies dyspnea Respiratory: Respiratory: Denies cough and Denies dyspnea Gastrointestinal: Gastrointestinal: Denies nausea Integumentary/Breasts: Skin/Breast: Reports erythema, Reports skin pain and Reports skin swelling Psychiatric: Psychiatric: Denies anxiety [facility] Past Medical History Medical History Daytime somnolence Mild recurrent major depression Screen for colon cancer Obesity (BMI 30-39.9) BPH (benign prostatic hyperplasia) Cataract Renal calculi Colon polyps History of hypertension Overweight (BMI 25.0-29.9) Surgical History H/O colonoscopy H/O lithotripsy Family History Family History Mother Mental health disorder Father Hypertension Dialysis complication Social History Social History Housing: Apartment Alcohol intake: never Patient Tobacco Use Status: Former Tobacco user Tobacco use type: Cigarette e-Cigarette/Vaping Use: Never Used Second Hand Smoke Exposure: No Substance Use Type: Opiates Advance Directives: No Advance Directives Information Provided: Yes Do you have a plan to hurt others: No Plan service: No Current occupational status: unemployed Cognitive needs: No Hearing needs: No Vision needs: Yes Physical Exam ED Vital Signs: Vital Signs - 24 hr 04/17/24 13:24 04/17/24 13:29 Temperature 98 F 98 F Pulse Rate 76 76 Respiratory Rate 18 18 Blood Pressure 129/63 129/63 Pulse Oximetry 98 98 BMI result Body Mass Index 28.8 Const General: healthy appearing, comfortable, no acute distress, alert and awake Nutritional Appearance: well nourished Orientation/consciousness: patient oriented x3 HENMT Head: Yes normocephalic and Yes atraumatic Eyes Eyelids: Yes eyelids normal Conjunctivae: conjunctivae normal Sclerae: sclerae normal Corneas: corneas normal Pupils: Equal, round and reactive pupils present EOM: EOMs intact bilaterally Neck Neck: Yes full ROM Resp Effort & Inspection: normal respiratory effort, able to speak in complete sentences and not labored Skin Other: Patient has about a 3 cm area of erythema to the right posterior upper leg. This area is indurated, there is no fluctuance. No open wounds or active drainage. The area is tender to palpation General skin exam: elasticity normal Neuro General: patient oriented x3 Cranial nerves: Yes Equal, round and reactive pupils present and Yes Bilaterally intact EOM present Cognition (Neuro): normal cognition Extrem Other: Moving all extremities well without any obvious deformities Medical Decision Making Medical Decision Making MDM Narrative: 58-year-old male presents for evaluation of a a cellulitis. It appears that he may have a developing abscess/phlegmon, however there is no fluctuance or area amenable to drainage at this time. We will treat as cellulitis and the patient will use warm compresses. He was encouraged to return if the area becomes fluctuant for potential incision and drainage Differential Diagnosis Differential Diagnoses: The differential diagnosis associated with the presentation includes Cellulitis Abscess Boil Dermatitis Ingrown nail Discharge Plan Discharge Clinical Impression: Cellulitis of leg, right Patient Disposition: Home, Self-Care Instructions: Cellulitis (ED) Additional Instructions: Take the antibiotic 4 times daily for the next 7 days. Apply warm compresses every 4 hours You have a skin infection called cellulitis. If the area becomes soft and squishy, it may need to be cut open and drained Return for new or worsening symptoms, especially if you develop a fever Prescriptions: New cephalexin 500 mg capsule 500 mg PO QID Qty: 28 0RF No Action (DME) blood pressure monitor Kit See Rx Instructions .Route Qty: 1 0RF Rx Instructions: As directed (DME) CPAP Machine/Device Device See Rx Instructions .Route Qty: 1 0RF Rx Instructions: autoPAP mode 6-20 cmH2O ipratropium bromide 21 mcg (0.03 %) spray,non-aerosol 1 spray intranasal BID Qty: 90 1RF lisinopril 40 mg tablet 40 mg PO DAILY 90 Days Qty: 90 1RF Interventions: ED Discharge Assessment Last Done: 04/17/24 13:29 Discharge Date/Time: 04/17/24 13:37 Print Language: Indonesian
[2024-04-17 13:29] VITALS: BP 129/63; PULSE 76; RESP 18; TEMP 36.6; O2SAT 98
== END 2024-04-17 13:37 | disposition home or self-care (01) ==
PROVIDERS: Emergency Provider Emergency Medicine; PCP Internal Medicine
DX: L03.115 Cellulitis of right lower limb (principal); M79.605 Pain in left leg
CPT/HCPCS: 99282; 99283

== ENCOUNTER 2024-06-20 13:54 | Outpatient (AMB) | payer OTHER, SELFPAY ==
[2024-06-20 14:00] VITALS: BP 146/78; PULSE 74; O2SAT 96; BMI 30.1
--- NOTE | 2024-06-20 14:00 | MHC.OFFVIS ---
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 HE USES HIS CPAP REGULARLY. BUT SOMETIMES GOES WITHOUT USING FOR MANY DAYS WHEN AND IF SHE GETS ADMITTED TO THE HOSPITAL. HE ALSO HAS TENDENCY TO DRINK ALCOHOL ON SOME NIGHTS WHEN HE DOES NOT USE THE CPAP. BESIDES THIS HE IS USER OF THE CPAP AND BENEFITING. HE CLAIMS THAT HE JUST CAN NOT SLEEP WELL WITHOUT THE CPAP. HAS NO ISSUE WITH THE MASK OR CPAP DEVICE. [facility] Medical History Daytime somnolence Mild recurrent major depression Screen for colon cancer Obesity (BMI 30-39.9) BPH (benign prostatic hyperplasia) Cataract Renal calculi Colon polyps History of hypertension Overweight (BMI 25.0-29.9) Surgical History H/O colonoscopy H/O lithotripsy Family History Mother Mental health disorder Father Hypertension Dialysis complication Social History Housing: Apartment Alcohol intake: never Patient Tobacco Use Status: Former Tobacco user Tobacco use type: Cigarette e-Cigarette/Vaping Use: Never Used Second Hand Smoke Exposure: No Substance Use Type: Opiates service: No Current occupational status: unemployed Cognitive needs: No Hearing needs: No Vision needs: Yes Review of Systems Const All systems reviewed & are unremarkable except as noted in HPI and below Reports snoring Eyes Reports no additional complaints ENT Reports nasal congestion (AT NIGHT) Card Denies chest pain, Denies irregular heart rhythm and Denies leg edema Resp Reports cough (OCCASIONAL), Reports snoring and Denies wheezing GI Reports no additional complaints Reports nocturia Musc Reports no additional complaints Skin/Breast Reports system reviewed and no additional complaints, except as documented Neuro Reports no additional complaints Psych Reports no additional complaints Endo Reports no additional complaints Raheel/Lymph Reports no additional complaints Aller/Immun Denies wheezing Physical Exam Vital Signs: Last Vital Signs Pulse 74 06/20/24 14:00 BP 146/78 H 06/20/24 14:00 Pulse Ox 96 06/20/24 14:00 Oxygen Delivery Method Room Air 06/20/24 14:00 BMI result Body Mass Index 30.1 Const General: healthy appearing (EXCEPT FOR BEING OVERWEIGHT), comfortable, no acute distress, alert and awake Orientation/consciousness: patient oriented x3 HEENT Head: Yes normal to inspection General nose exam: No nasal polyps present and No nasal discharge present Face and sinus: Yes sinuses nontender Mouth: oropharynx abnormals (OROPHARYNX IS NARROW AND CROWDED, MALLAMPATI CLASS 4) Throat: Yes posterior oropharynx normal Eyes General: appearance normal, both eyes and all related structures Neck Neck: Yes normal visual inspection, Yes no lymphadenopathy, Yes trachea midline, Yes no JVD and Yes other (NECK CIRCUMFERENCE 17 IN) Thyroid: Thyroid normal Chest Chest palpation & inspection: normal inspection of the chest, normal palpation of entire chest wall and no tenderness Resp Effort & Inspection: normal respiratory effort Auscultation: clear to auscultation bilaterally, no crackles and no wheezes Cardio Palpation: normal PMI Rate: regular rate Rhythm: regular rhythm Heart sounds: no gallops and no murmurs Peripheral pulses: Peripheral pulses 2+ throughout GI Palpation (GI): Soft to palpation, nontender, No hepatosplenomegaly present and no masses Auscultation: normal bowel sounds Back/Spine/Pelvis Thoracic/Lumbar Spine: thoracic and lumbar spine normal to inspection Skin General skin exam: no rashes or lesions noted Neuro General: patient oriented x3 and no focal motor deficits Cranial nerves: Yes CN's II-XII intact bilaterally Extrem General: Yes normal to inspection, Yes no clubbing, cyanosis or edema and Yes no calf tenderness Psych Appearance: grossly normal and well kempt Speech and movement: Normal speech and movement present Results Reviewed Results Reviewed: ACCORDING TO THE PATIENT HE IS A REGULAR USER OF CPAP EVERY NIGHT. MISSED USING FOR 2 WEEKS WHEN HIS THE CLIENT WAS IN HOSPITAL AND HE SPENT NIGHTS OVER THE. Assessment & Plan Assessment & Plan (1) Obesity (BMI 30-39.9): Comment: THIS GENTLEMAN IS MODERATELY OBESE, WEIGHT FLUCTUATES, BY A FEW LBS. BUT MOSTLY STAYING STABLE. Code(s): E66.9 - Obesity, unspecified Category: Medical Plan: TALKED TO HIM ABOUT THE WEIGHT AND ADVISE THAT HE SHOULD TRY TO LOSE ABOUT 10 LB OF WEIGHT. (2) JULIA (obstructive sleep apnea): Comment: HE HAS SEVERE OBSTRUCTIVE SLEEP APNEA. HE IS VERY COMPLIANT AND USES CPAP REGULARLY. HE MISSES ONLY A FEW NIGHTS PER MONTH. HE HAS GREATLY BENEFITING FROM THE USE OF CPAP. Code(s): G47.33 - Obstructive sleep apnea (adult) (pediatric) Category: Medical Plan: INSTRUCTED THAT HE SHOULD NOT MISS USING THE CPAP EVEN WHEN HE IS SLEEP HIM AWAY FROM THE HOUSE. (3) Nocturnal hypoxemia: Comment: HE HAS NOCTURNAL HYPOXEMIA SECONDARY TO JUILA/HYPOVENTILATION , AND IT IS EXPECTED TO IMPROVE HE USES CPAP REGULARLY. HE CHECKS HIS O2 SAT AT HOME AND IT IS IN NORMAL RANGE. Code(s): G47.34 - Idiopathic sleep related nonobstructive alveolar hypoventilation Category: Medical Plan: CONTINUE USING CPAP REGULARLY . Coding Level of Care Code Est Pt Level 3 (76595) Diagnoses Obesity (BMI 30-39.9) E66.9 JULIA (obstructive sleep apnea) G47.33 Nocturnal hypoxemia G47.34
--- NOTE | 2024-06-20 14:20 | A.OFFVIS_ITS ---
Vital Signs 06/20/24 14:00 06/20/24 14:22 Height 5 ft 4 in Weight 175 lb 4.28 oz BMI 30.1 30.1 BP 146/78 H Blood Pressure Location Rt brachial Position Sitting Pulse 74 Pulse Source Pulse Oximeter Pulse Oximetry (%) 96 Oxygen Delivery Method Room Air Intake Visit Reasons: Obstructive sleep apnea Allergies No Known Allergies Allergy (Verified 06/20/24 14:14) Medication List - Last Reconciled 06/20/24 by Izzy Starr MD blood pressure monitor As directed cephalexin 500 mg PO QID CPAP (CPAP Machine/Device) autoPAP mode 6-20 cmH2O ipratropium bromide 1 spray intranasal BID lisinopril 40 mg PO DAILY 90 days PFSH Medical History Daytime somnolence Mild recurrent major depression Screen for colon cancer Obesity (BMI 30-39.9) BPH (benign prostatic hyperplasia) Cataract Renal calculi Colon polyps History of hypertension Overweight (BMI 25.0-29.9) Surgical History H/O colonoscopy H/O lithotripsy Family History Mother Mental health disorder Father Hypertension Dialysis complication Social History Housing: Apartment Alcohol intake: never Patient Tobacco Use Status: Former Tobacco user Tobacco use type: Cigarette e-Cigarette/Vaping Use: Never Used Second Hand Smoke Exposure: No Substance Use Type: Opiates service: No Current occupational status: unemployed Cognitive needs: No Hearing needs: No Vision needs: Yes Physical Exam Vital Signs: Last Vital Signs Pulse 74 06/20/24 14:00 BP 146/78 H 06/20/24 14:00 Pulse Ox 96 06/20/24 14:00 Oxygen Delivery Method Room Air 06/20/24 14:00 BMI result Body Mass Index 30.1 Quality Reporting (2019) Adult ([facility] 138/2/22/69) Body Mass Index: 30.1 Assessment & Plan Assessment & Plan (1) Obesity (BMI 30-39.9): Comment: THIS GENTLEMAN IS MODERATELY OBESE, WEIGHT FLUCTUATES, BY A FEW LBS. BEST MOSTLY STAYING STABLE. Code(s): E66.9 - Obesity, unspecified Category: Medical Plan: DISCUSSED WITH HIM ABOUT THE WEIGHT AND I ADVISED HIM TO TRY TO LOSE 5-10 LB OF WEIGHT (2) JULIA (obstructive sleep apnea): Comment: HE HAS SEVERE OBSTRUCTIVE SLEEP APNEA. HE IS VERY COMPLIANT AND USES CPAP REGULARLY. HE MISSES ONLY A FEW NIGHTS PER MONTH. HE HAS GREATLY BENEFITING FROM THE USE OF CPAP. Code(s): G47.33 - Obstructive sleep apnea (adult) (pediatric) Category: Medical Plan: ADVISED TO CONTINUE USING THE CPAP AT LEAST FOR 6 HOURS EVERY NIGHT AND REGULARLY (3) Nocturnal hypoxemia: Comment: HE HAS NOCTURNAL HYPOXEMIA SECONDARY TO JULIA/HYPOVENTILATION , AND IT IS EXPECTED TO IMPROVE HE USES CPAP REGULARLY. HE CHECKS HIS O2 SAT AT HOME AND IT IS IN NORMAL RANGE. Code(s): G47.34 - Idiopathic sleep related nonobstructive alveolar hypoventilation Category: Medical Plan: NO FURTHER ACTION NEEDED Coding Level of Care Code Est Pt Level 3 (57105) Diagnoses Obesity (BMI 30-39.9) E66.9 JULIA (obstructive sleep apnea) G47.33 Nocturnal hypoxemia G47.34
[2024-06-20 14:22] VITALS: BMI 30.1
== END 2024-06-20 14:17 | disposition home or self-care (01) ==
LOC: HO.HPS 13:55
PROVIDERS: PCP Internal Medicine; Visit Provider Internal Medicine
DX: G47.33 Obstructive sleep apnea (adult) (pediatric) (principal); G47.34 Idiopathic sleep related nonobstructive alveolar hypoventilation; E66.9 Obesity, unspecified; Z68.30 Body mass index [BMI] 30.0-30.9, adult
CPT/HCPCS: 99213

== ENCOUNTER → 2024-06-20 13:54 | Outpatient (BNVA) | payer OTHER, SELFPAY | PROVIDERS: PCP Internal Medicine; Visit Provider Internal Medicine | DX: G47.33 Obstructive sleep apnea (adult) (pediatric) (principal); G47.34 Idiopathic sleep related nonobstructive alveolar hypoventilation; E66.9 Obesity, unspecified; Z68.30 Body mass index [BMI] 30.0-30.9, adult; Z87.891 Personal history of nicotine dependence | CPT/HCPCS: 99212 ==

== ENCOUNTER 2024-07-31 14:49 | Outpatient (AMB) | payer OTHER, SELFPAY ==
--- NOTE | 2024-07-31 15:19 | MHC.PC.OV ---
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 Accompanied by: Self / Same As Patient Allergies No Known Allergies Allergy (Verified 07/31/24 15:34) Medication List - Last Reconciled 07/31/24 by Isamar White MD blood pressure monitor As directed CPAP (CPAP Machine/Device) autoPAP mode 6-20 cmH2O ipratropium bromide 1 spray intranasal BID lisinopril 40 mg PO DAILY 90 days Tobacco use date assessed: 08/31/23 Dental Screening Dental Screen Date: 07/31/24 Did you have a dental visit in the last 12 months?: No Did you have a dental problem in the last 6 months where you did not have access to dental care?: No Was dental information given to patient?: Patient has dentist HPI HPI Comments History of Present Illness Details The patient is a 59-year-old male presenting for his physical exam. He has a hernia that was identified by a surgeon following a colonoscopy at an outpatient clinic. The patient recounts receiving this information from Dr. Yeboah. He expresses concerns about the risks associated with hernia and possible surgical intervention. The plan includes performing an ultrasound to assess the hernia's contents for surgical necessity. The patient also reports increased discomfort from arthritic pain, noting intensified pain while walking and routine activities. He describes the pain as severe and debilitating, at times hindering his movement completely. Kdlj-aow-jnadghs topical treatments, including creams and ointments, have been used with temporary relief. He has not mentioned any additional medications other than lisinopril for hypertension and the use of a CPAP machine for sleep apnea. - Tetanus vaccination is due; a nurse visit is recommended for administration. - The patient received an influenza vaccination at a recent appointment. [facility] Medical History Daytime somnolence Mild recurrent major depression Screen for colon cancer Obesity (BMI 30-39.9) BPH (benign prostatic hyperplasia) Cataract Renal calculi Colon polyps History of hypertension Overweight (BMI 25.0-29.9) Surgical History H/O colonoscopy H/O lithotripsy Family History Mother Mental health disorder Father Hypertension Dialysis complication Social History Housing: Apartment Alcohol intake: never Patient Tobacco Use Status: Former Tobacco user Tobacco use type: Cigarette e-Cigarette/Vaping Use: Never Used Second Hand Smoke Exposure: No Substance Use Type: Opiates service: No Current occupational status: unemployed Cognitive needs: No Hearing needs: No Vision needs: Yes Questionnaire PHQ-9 Over the last 2 weeks, how often have you been bothered by any of the following problems? 1. Little interest or pleasure in doing things: not at all 2. Feeling down, depressed, or hopeless: not at all 3. Trouble falling or staying asleep, or sleeping too much: not at all 4. Feeling tired or having little energy: not at all 5. Poor appetite or overeating: not at all 6. Feeling bad about yourself - or that you are a failure or have let yourself or your family down: not at all 7. Trouble concentrating on things, such as reading the newspaper or watching television: not at all 8. Moving or speaking so slowly that other people could have noticed. Or the opposite - being so fidgety or restless that you have been moving around a lot more than usual: not at all 9. Thoughts that you would be better off or of hurting yourself in some way: not at all Total score: 0 Depression Screening Interpretation: Negative Depression Screening Done: Yes 15407 - PHQ-9 Billing: Yes Source: Developed by Drs. Osmin Gong, Raine Sánchez, Serg Mclain and colleagues, with an educational allan from [employer]. Thrive Questionnaire Date Thrive assessed: 07/24/24 I am a: Patient What is your living situation today?: I have a steady place to live Within the past 12 months, did the food you bought not last and you didn't have the money to get more?: Never true Within the past 12 months, did you worry whether your food would run out before you got money to buy more?: Never true Do you have trouble paying for medicines?: No Do you have trouble getting transportation to medical appointments?: No Do you have trouble paying your heating and electricity bill?: No Do you have trouble taking care of your child, family member or friend?: No Do you have trouble with day-to-day activities such as bathing, preparing meals, shopping, managing finances, etc.?: No Are you currently unemployed and looking for a job?: No Are you interested in more education?: No Please select the resources that you would like help with: None Currently or been in a relationship where the following occur: I choose not to answer THRIVE Score: 0 AUDIT C Alcohol Use Questionnaire (AUDIT-C) 1. How often do you have a drink containing alcohol?: Never 2. How many drinks containing alcohol do you have on a typical day when you are drinking?: 1 or 2 3. How often do you have six or more drinks on one occasion?: Never Total Score: 0 Score Reviewed/Action Taken: No JESSICA-7 AMB Questionnaire JESSICA-7 Date JESSICA - 7 assessed: 07/31/24 Feeling nervous, anxious, or on edge: 0 = Not at all Not being able to stop or control worryin = Not at all Worrying too much about different things: 0 = Not at all Trouble relaxin = Not at all Being so restless that it is hard to sit still: 0 = Not at all Becoming easily annoyed or irritable: 0 = Not at all Feeling afraid as if something awful might happen: 0 = Not at all Total JESSICA-7 score (0-4 normal; 5-9 mild; 10-14 moderate; 15-21 severe): 0 Source: Developed by Drs. Osmin Gong, Raine Sánchez, Serg Mclain and colleagues, with an educational allan from [employer]. JESSICA-7 Assessment Billing JESSICA-7 Assessment Tool: JESSICA-7 Assessment 70980 Review of Systems Const Details: - Musculoskeletal: Reports significant joint pain associated with arthritis. - Psychological: Denies feelings of depression. - Respiratory: Uses CPAP machine for sleep apnea. Physical exam (Primary Care) Vital Signs: Last Vital Signs BP 140/72 H 07/31/24 15:20 BMI result Body Mass Index 30.6 Tobacco/Smoking Status: Tobacco use Status Tobacco use date assessed 08/31/23 07/31/24 15:25 Patient Tobacco Use Status Former Tobacco user 07/31/24 15:25 Tobacco use type Cigarette 07/31/24 15:25 e-Cigarette/Vaping Use Never Used 07/31/24 15:25 PHQ-9: PHQ-9 Score PHQ-9: Total score 0 07/31/24 15:37 Depression Screening Interpretation: Negative Thrive Assessment: Date of Thrive Assessment Date Thrive assessed 07/24/24 07/31/24 15:25 Currently or been in a relationship where the following occur: I choose not to answer Const Other: General: Cooperative, healthy appearing, comfortable, no acute distress and well developed Orientation: Patient oriented x3 Limitations: No limitations Head: Normal to inspection Ears: Hearing grossly normal bilaterally Nose: Normal external nose present Face and sinus: Normal facial exam Eyes: Appearance normal, both eyes and all related structures Neck: Normal visual inspection and Yes full ROM Respiratory: Normal respiratory effort and able to speak in complete sentences. Clear to auscultation bilaterally Cardiovascular: Regular rate and rhythm. Normal S1 and S2 GI: Hernia noted, further evaluation with ultrasound planned Skin: No rashes or lesions noted Neuro: Patient oriented x3 Extremities: Normal to inspection, but patient reports increased bone pain and difficulty walking due to arthritis Office Procedures Flu Questionnaire Does the patient have a severe egg allergy?: No Immunizations Fluarix Triv [id number] (PF) 45 mcg (15 mcg x 3)/0.5 mL IM syringe Performing Provider: Isamar White MD [facility] [place] [facility] Documented (not given) by: JOEY South on 07/31/24 15:27 Reason Not Given: Received Previously Coding Level of Care Code Est Pt Level 3 (33794) Est Pt Prev Care 40-64y(18953) Diagnoses Polyarthralgia M25.50 Physical exam Z00.00 Umbilical hernia K42.9 Additional Codes JESSICA-7 Assessment Billing - JESSICA-7 Assessment Tool: JESSICA-7 Assessment 53975 ([id number]) PHQ-9 - 15423 - PHQ-9 Billing: Yes ([id number]) Time Spent (min) 34 Assessment & Plan Assessment & Plan (1) Polyarthralgia: Code(s): M25.50 - Pain in unspecified joint Category: Medical (2) Physical exam: Code(s): Z00.00 - Encounter for general adult medical examination without abnormal findings Category: Medical (3) Umbilical hernia: Code(s): K42.9 - Umbilical hernia without obstruction or gangrene Category: Medical Plan - Perform an ultrasound to evaluate the nature of the hernia e.g., presence of fat or bowel). - Continue with existing lisinopril dosage for essential hypertension. - Prescribe topical analgesics or oral medication as needed for severe arthritic pain. - Schedule a nurse visit for tetanus vaccination. Patient was informed and verbally consented to the use of an ambient scribe for clinic note documentation during this visit. I discussed with the patient the plan to perform an ultrasound to determine whether the hernia contains fat or bowel, which will guide the decision-making for possible surgical intervention. We talked about the management options for his arthritis, emphasizing the possibility of medication adjustments to address the increased pain. I informed him that the lisinopril dosage is at its maximum, and any subsequent management for blood pressure will require further evaluation. We agreed on having a nurse visit for tetanus vaccination. The patient was advised to proceed with his routine for use of the CPAP device for managing sleep apnea. Orders: Orders Influenza [id number] Immunization Today Z23 - Encounter for immunization US abdomen limited Today K42.9 - Umbilical hernia without obstruction or gangrene Medications: New nabumetone 750 mg PO BID 60 tabs 2RF 30 days M25.50 - Pain in unspecified joint Patient Instructions: - Attend a nurse visit for tetanus vaccination. - Await scheduling and completion of the hernia ultrasound. - Continue using [id number]-agoqpix analgesics as needed for arthritis pain. - Follow the recommended plan for CPAP use for sleep apnea management. - Return for follow-up for any significant changes in symptoms or concerns.
[2024-07-31 15:20] VITALS: BP 140/72; BMI 30.6
== END 2024-07-31 15:49 | disposition home or self-care (01) ==
PROVIDERS: PCP Internal Medicine; Visit Provider Internal Medicine
DX: Z00.00 Encounter for general adult medical examination without abnormal findings (principal); M25.50 Pain in unspecified joint; K42.9 Umbilical hernia without obstruction or gangrene

== ENCOUNTER → 2024-07-31 14:49 | Outpatient (BNVA) | payer OTHER, SELFPAY | PROVIDERS: PCP Internal Medicine; Visit Provider Internal Medicine | DX: Z00.00 Encounter for general adult medical examination without abnormal findings (principal); G47.30 Sleep apnea, unspecified; K42.9 Umbilical hernia without obstruction or gangrene; M25.50 Pain in unspecified joint; Z99.89 Dependence on other enabling machines and devices | CPT/HCPCS: 96127; 99212; 99396 ==

== ENCOUNTER 2024-08-20 09:15 | Outpatient (REF) | payer OTHER, SELFPAY ==
--- NOTE | ~2024-08-20 | US_ITS ---
EXAMINATION: US ABDOMEN LIMITED HISTORY: K42.9 - Umbilical hernia without obstruction or gangrene COMPARISON: There are no prior studies for comparison. FINDINGS: Sonographic examination of the region of the umbilicus was performed. There is a fat containing umbilical hernia. The neck of the hernia measures approximately 8 mm in diameter. No definite bowel contents are noted in the hernia. US/US abdomen limited IMPRESSION: Fat-containing umbilical hernia as described. Electronically signed by: Osmin Whiting MD 08/20/2024 10:54 AM JOSIANE
== END 2024-08-20 09:16 | disposition home or self-care (01) ==
LOC: HO.US 09:15
PROVIDERS: PCP Internal Medicine; Visit Provider Internal Medicine
DX: K42.9 Umbilical hernia without obstruction or gangrene (principal)
CPT/HCPCS: 76705

== ENCOUNTER → 2024-08-20 09:18 | Outpatient (BNV) | payer OTHER, SELFPAY | PROVIDERS: PCP Internal Medicine; Visit Provider Radiology Diagnostic Radiology | DX: K42.9 Umbilical hernia without obstruction or gangrene (principal) | CPT/HCPCS: 76705 ==

== ENCOUNTER → 2024-08-21 15:18 | Outpatient (BNVA) | payer OTHER, SELFPAY | PROVIDERS: PCP Internal Medicine | DX: Z01.89 Encounter for other specified special examinations (principal) ==

== ENCOUNTER 2024-08-29 08:38 | Outpatient (AMB) | payer OTHER, SELFPAY ==
[2024-08-29 08:40] VITALS: BP 171/83; PULSE 87; BMI 30.7
--- NOTE | 2024-08-29 08:40 | MHC.OFFVIS ---
Vital Signs 08/29/24 08:40 Height 5 ft 4 in Weight 179 lb BMI 30.7 BP 171/83 H Blood Pressure Location Rt brachial Position Sitting Pulse 87 Intake Visit Reasons: Umbilical hernia Intake Note: Patient referred by pcp Dr. Laith White for umbilical hernia. Present for 1YR. Patient c/o: bothersome, bulging, enlarging. 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 He would like to have it repaired. He has no other GI issues or complaints. He is tolerating a diet. Has regular bowel habits. He is fairly active. 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 Chart was reviewed and patient evaluated [facility] Medical History Daytime somnolence Mild recurrent major depression Screen for colon cancer Obesity (BMI 30-39.9) BPH (benign prostatic hyperplasia) Cataract Renal calculi Colon polyps History of hypertension Overweight (BMI 25.0-29.9) Surgical History H/O colonoscopy H/O lithotripsy Family History Mother Mental health disorder Father Hypertension Dialysis complication Social History Housing: Apartment Alcohol intake: never Patient Tobacco Use Status: Former Tobacco user Tobacco use type: Cigarette e-Cigarette/Vaping Use: Never Used Second Hand Smoke Exposure: No Substance Use Type: Opiates service: No Current occupational status: unemployed Cognitive needs: No Hearing needs: No Vision needs: Yes Physical Exam Vital Signs: Last Vital Signs Pulse 87 08/29/24 08:40 BP 171/83 H 08/29/24 08:40 BMI result Body Mass Index 30.7 Chest Other: Chest breath sounds bilaterally, HS 1 in 2 GI Other: Patient was examined both supine and standing with Valsalva. Bilateral groin exam negative. Genitalia within normal limits. Abdomen corpulent, soft, benign. Roughly 3 cm reducible umbilical hernia. Assessment & Plan Assessment & Plan (1) Umbilical hernia: Code(s): K42.9 - Umbilical hernia without obstruction or gangrene Category: Surgical Plan Risks, benefits, alternatives of open umbilical hernia repair with mesh were reviewed with the patient and included but not limited to bleeding, infection, recurrence, numbness, pain, scarring, bowel injury and the patient wished to proceed. All questions answered. Arrangements were made for this I then which is convenient for him. Coding Level of Care Code New Pt Level 5 (94209) Diagnoses Umbilical hernia K42.9
== END 2024-08-29 08:55 | disposition home or self-care (01) ==
PROVIDERS: PCP Internal Medicine; Referring Provider Internal Medicine; Visit Provider Surgery
DX: K42.9 Umbilical hernia without obstruction or gangrene (principal)
CPT/HCPCS: 99214

== ENCOUNTER → 2024-08-29 08:38 | Outpatient (BNVA) | payer OTHER, SELFPAY | PROVIDERS: PCP Internal Medicine; Referring Provider Internal Medicine; Visit Provider Surgery | DX: K42.9 Umbilical hernia without obstruction or gangrene (principal) | CPT/HCPCS: 99212 ==

== ENCOUNTER → 2024-09-14 10:50 | Outpatient (BNV) | payer OTHER, SELFPAY | PROVIDERS: PCP Internal Medicine; Visit Provider Surgery | DX: K42.9 Umbilical hernia without obstruction or gangrene (principal) | CPT/HCPCS: 49592 ==

== ENCOUNTER → 2024-09-25 10:43 | Outpatient (BNVA) | payer OTHER, SELFPAY | PROVIDERS: PCP Internal Medicine; Visit Provider Surgery | DX: Z09 Encounter for follow-up examination after completed treatment for conditions other than malignant neoplasm (principal); Z98.890 Other specified postprocedural states | CPT/HCPCS: 99212 ==

== ENCOUNTER → 2024-09-25 11:01 | Outpatient (AMB) | payer OTHER, SELFPAY ==
--- NOTE | 2024-09-25 10:46 | MHC.OFFVIS ---
Intake Visit Reasons: S/P umbilical hernia w/mesh Intake Note: Patient here s/p open umbilical herniorrhaphy with primary closure. Reports incision healing well. Patient c/o: steri strips fell off. Only took rx pain meds for first 2d. 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 He has no wound issues or complaints. He is starting a diet. Having regular bowel habits. He is increasing his activity level. Minimal incisional discomfort. [facility] Medical History Daytime somnolence Mild recurrent major depression Screen for colon cancer Obesity (BMI 30-39.9) BPH (benign prostatic hyperplasia) Cataract Renal calculi Colon polyps History of hypertension Overweight (BMI 25.0-29.9) Surgical History (Updated 09/25/24 @ 11:01 by Chepe Beck MD) Umbilical hernia (09/14/24) H/O colonoscopy H/O lithotripsy Family History Mother Mental health disorder Father Hypertension Dialysis complication Social History Housing: Apartment Alcohol intake: never Patient Tobacco Use Status: Former Tobacco user Tobacco use type: Cigarette e-Cigarette/Vaping Use: Never Used Second Hand Smoke Exposure: No Substance Use Type: Opiates service: No Current occupational status: unemployed Cognitive needs: No Hearing needs: No Vision needs: Yes Physical Exam GI Other: Abdomen is soft, corpulent. Incision clean dry and intact healing well Assessment & Plan Assessment & Plan (1) Status post umbilical hernia repair, follow-up exam: Code(s): Z09 - Encounter for follow-up examination after completed treatment for conditions other than malignant neoplasm Category: Medical Plan Patient was been given local instructions, avoiding strenuous activities next few weeks time and will otherwise follow-up p.r.n.. All questions answered. Coding Level of Care Code Est Pt Level 2 (41304) Diagnoses Status post umbilical hernia repair, follow-up exam Z09
== END | disposition home or self-care (01) ==
PROVIDERS: PCP Internal Medicine; Visit Provider Surgery
DX: Z09 Encounter for follow-up examination after completed treatment for conditions other than malignant neoplasm (principal)
CPT/HCPCS: 99212

== ENCOUNTER 2024-09-27 10:23 | Outpatient (AMB) | payer OTHER, SELFPAY ==
--- NOTE | 2024-09-27 10:26 | A.OFFPC_ITS ---
Vital Signs 09/27/24 10:28 Height 5 ft 4 in Weight 176 lb BMI 30.2 BP 150/72 H Blood Pressure Location Lt brachial Position Sitting Intake Visit Reasons: follow up s/p hernia repair Computer Applications Engineer Required: Yes Computer Applications Engineer Language: Anger Control Counselor Name: Isamar White MD Information Interpreted: non-clinical & clinical Accompanied by: Self / Same As Patient Allergies No Known Allergies Allergy (Verified 09/27/24 10:31) Tobacco use date assessed: 09/27/24 Dental Screening Dental Screen Date: 09/27/24 Did you have a dental visit in the last 12 months?: No Did you have a dental problem in the last 6 months where you did not have access to dental care?: No Was dental information given to patient?: Patient declined HPI HPI Comments History of Present Illness Details The patient is a 59-year-old male presenting with issues related to Essential Hypertension. The patient uses lisinopril 40 mg daily for blood pressure control and states he takes it every morning. Despite medication adherence, diabetic control remains a concern due to high glucose readings. Previously, the patient was treated for hypertension. A CPAP machine is utilized for Sleep Apnea, further managing underlying health issues. Additionally, the patient discusses past substance use, with accidental cocaine exposure occurring at a social event around two years ago, leading to a single positive test but denies current use. The patient also mentions previous smoking and cessation of alcohol, impacting chronic health management. Cataracts have been diagnosed, with upcoming plans for lens replacement. Overall, the patient's diabetic management and blood pressure control remain focal health concerns. [facility] Medical History Daytime somnolence Mild recurrent major depression Screen for colon cancer Obesity (BMI 30-39.9) BPH (benign prostatic hyperplasia) Cataract Renal calculi Colon polyps History of hypertension Overweight (BMI 25.0-29.9) Surgical History Umbilical hernia (09/14/24) H/O colonoscopy H/O lithotripsy Family History Mother Mental health disorder Father Hypertension Dialysis complication Social History Housing: Apartment Alcohol intake: never Patient Tobacco Use Status: Former Tobacco user Tobacco use type: Cigarette e-Cigarette/Vaping Use: Never Used Second Hand Smoke Exposure: No Substance Use Type: Opiates service: No Current occupational status: unemployed Cognitive needs: No Hearing needs: No Vision needs: Yes Questionnaire PHQ-9 Over the last 2 weeks, how often have you been bothered by any of the following problems? 1. Little interest or pleasure in doing things: not at all 2. Feeling down, depressed, or hopeless: not at all 3. Trouble falling or staying asleep, or sleeping too much: not at all 4. Feeling tired or having little energy: not at all 5. Poor appetite or overeating: not at all 6. Feeling bad about yourself - or that you are a failure or have let yourself or your family down: not at all 7. Trouble concentrating on things, such as reading the newspaper or watching television: not at all 8. Moving or speaking so slowly that other people could have noticed. Or the opposite - being so fidgety or restless that you have been moving around a lot more than usual: not at all 9. Thoughts that you would be better off or of hurting yourself in some way: not at all Total score: 0 Depression Screening Interpretation: Negative Depression Screening Done: Yes 99577 - PHQ-9 Billing: Yes Source: Developed by Drs. Osmin Gong, Raine Sánchez, Serg Mclain and colleagues, with an educational allan from [employer]. Thrive Questionnaire Date Thrive assessed: 09/27/24 I am a: Patient What is your living situation today?: I have a steady place to live Within the past 12 months, did the food you bought not last and you didn't have the money to get more?: Never true Within the past 12 months, did you worry whether your food would run out before you got money to buy more?: Never true Do you have trouble paying for medicines?: No Do you have trouble getting transportation to medical appointments?: No Do you have trouble paying your heating and electricity bill?: No Do you have trouble taking care of your child, family member or friend?: No Do you have trouble with day-to-day activities such as bathing, preparing meals, shopping, managing finances, etc.?: No Are you currently unemployed and looking for a job?: No Are you interested in more education?: No Please select the resources that you would like help with: None Currently or been in a relationship where the following occur: I choose not to answer THRIVE Score: 0 AUDIT C Alcohol Use Questionnaire (AUDIT-C) 1. How often do you have a drink containing alcohol?: Never Total Score: 0 Score Reviewed/Action Taken: No JESSICA-7 AMB Questionnaire JESSICA-7 Date JESSICA - 7 assessed: 09/27/24 Feeling nervous, anxious, or on edge: 0 = Not at all Not being able to stop or control worryin = Not at all Worrying too much about different things: 0 = Not at all Trouble relaxin = Not at all Being so restless that it is hard to sit still: 0 = Not at all Becoming easily annoyed or irritable: 0 = Not at all Feeling afraid as if something awful might happen: 0 = Not at all Total JESSICA-7 score (0-4 normal; 5-9 mild; 10-14 moderate; 15-21 severe): 0 Source: Developed by Drs. Osmin Gong, Raine Sánchez, Serg Mclain and colleagues, with an educational allan from [employer]. JESSICA-7 Assessment Billing JESSICA-7 Assessment Tool: JESSICA-7 Assessment 42375 Review of Systems Const All systems reviewed & are unremarkable except as noted in HPI and below Card Denies chest pain at rest, Denies chest pain with activity, Denies edema, Denies irregular heart rhythm, Denies claudication, Denies dyspnea, Denies dyspnea on exertion, Denies orthopnea, Denies paroxysmal nocturnal dyspnea and Denies slow heart rate Resp Denies cough, Denies dyspnea and Denies dyspnea on exertion GI Denies abdominal pain, Denies change in bowel habits, Denies excessive flatus, Denies nausea and Denies vomiting Musc Denies atrophy, Denies deformity and Denies limited range of motion Physical exam (Primary Care) Vital Signs: Last Vital Signs BP 150/72 H 09/27/24 10:28 BMI result Body Mass Index 30.2 Tobacco/Smoking Status: Tobacco use Status Tobacco use date assessed 09/27/24 09/27/24 10:32 Patient Tobacco Use Status Former Tobacco user 09/27/24 10:32 Tobacco use type Cigarette 09/27/24 10:32 e-Cigarette/Vaping Use Never Used 09/27/24 10:32 PHQ-9: PHQ-9 Score PHQ-9: Total score 0 09/27/24 11:02 Depression Screening Interpretation: Negative Thrive Assessment: Date of Thrive Assessment Date Thrive assessed 09/27/24 09/27/24 10:32 Currently or been in a relationship where the following occur: I choose not to answer Resp Effort & Inspection: normal respiratory effort Auscultation: clear to auscultation bilaterally Cardio Jugular venous distension: no JVD Rate: regular rate Rhythm: regular rhythm Heart sounds: S1 normal heart sound present and S2 normal heart sound present Extrem General: Yes full ROM Coding Level of Care Code Est Pt Level 3 (81444) Complex EM visit Add On G2211 Diagnoses Essential hypertension I10 JULIA (obstructive sleep apnea) G47.33 Additional Codes JESSICA-7 Assessment Billing - JESSICA-7 Assessment Tool: JESSICA-7 Assessment 66928 ([id number]) PHQ-9 - 78667 - PHQ-9 Billing: Yes ([id number]) Time Spent (min) 19 Assessment & Plan Assessment & Plan (1) Essential hypertension: Code(s): I10 - Essential (primary) hypertension Category: Medical (2) JULIA (obstructive sleep apnea): Comment: HE HAS SEVERE OBSTRUCTIVE SLEEP APNEA. HE IS VERY COMPLIANT AND USES CPAP REGULARLY. HE MISSES ONLY A FEW NIGHTS PER MONTH. HE HAS GREATLY BENEFITING FROM THE USE OF CPAP. Code(s): G47.33 - Obstructive sleep apnea (adult) (pediatric) Category: Medical Plan - Continue current antihypertensive therapy with lisinopril 40 mg daily. - Maintain consistent use of the CPAP machine for Sleep Apnea management. - Evaluate for cataract surgery to address visual impairment. - Advisement on nutritional changes and diet to assist with weight and overall management of diabetes. - Reinforce abstinence from substances and provide supportive resources if necessary. Patient was informed and verbally consented to the use of an ambient scribe for clinic note documentation during this visit. During the visit, I emphasized the importance of maintaining current medication regimens for hypertension and the necessity of routine follow-up to ensure adequate control. We discussed the potential benefits of cataract surgery and its impact on vision improvement. The conversation centered around lifestyle modifications, including dietary changes, given the emphasis on food as an indulgence. I highlighted the significance of avoiding substance use, acknowledging past incidents, and supporting the patient's progress in abstinence. The patient was informed about the crucial role of routine CPAP use in mitigating Sleep Apnea symptoms. Future follow-up appointments will monitor progress, ensure adherence, and assess any arising complications. Medications: New amlodipine 2.5 mg PO DAILY 90 tabs 1RF 90 days I10 - Essential (primary) hypertension Patient Instructions: - Continue taking lisinopril 40 mg daily as prescribed. - Monitor your blood glucose levels regularly and document readings. - Use CPAP machine nightly to improve sleep quality. 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 - Focus on balanced nutritional intake and try to limit indulgences. - Avoid recreational drug use and alcohol consumption. - Follow up with your primary care physician as scheduled.
[2024-09-27 10:28] VITALS: BP 150/72; BMI 30.2
--- OUTSIDE RECORDS SUMMARY | 2024-09-27 11:06 | XMS_ITS | Patient Health Record ---
Author Organization [facility] Address [address] [place] [address] Care Team Providers Care Cooker Casing Name Role Phone Isamar Diaz Primary Care Provider Unavailab Scott Shaffer Jr Unavailable [phone] ALLERGIES No Known Allergies REASON FOR REFERRAL No Information MEDICATIONS Medication SIG (Take, Route, Frequency, Duration) Notes Start Date End Date Status MiraLax (colon prep) 17 GM/SCOOP mixed with Gatorade or Crystal Light Orally begin at 5:00 p.m. the day before the procedure for 1 day 08/26/2022 Active Tamsulosin HCl 0.4 MG TAKE 1 CAPSULE BY MOUTH AT BEDTIME Oral for 90 Active Lisinopril 20 MG 1 tablet Orally Once a day 08/26/2022 Active Multivitamin - 1 tablet Orally Once a day for 30 day(s) Active Omeprazole 20 MG 1 capsule 30 minutes before morning meal Orally Once a day for 30 day(s) prn Active buPROPion HCl 150 MG as directed Orally Active IMMUNIZATIONS Vaccine Route Administration Date Status Comme nts Influenza Unknown 08/26/2022 Refused SOCIAL HISTORY Tobacco Use: Social History Observation Description Date Details (start date - stop date) Former Smoker NA - NA Sex Assigned At : Social History Observation Description Sex Assigned At Unknown Tobacco Use/Smoking Question Answer Notes Patient is a former smoker How long has it been since you last smoked? 1-5 years Alcohol Screen Question Answer Notes Did you have a drink contain ing alcohol in the past year? Yes How often did you have a dri nk containing alcohol in the past year? Monthly or less (1 point) How many drinks did you have on a typical day when you were drinking in the past year? 1 or 2 drinks (0 point) How often did you have 6 or more drinks on one occasion in the past year? Never (0 point) Points 1 Interpretation Negative PROBLEMS Problem Type ICD Code Onset Dates Problem Status W/U Status Risk SNOMED Code Notes Problem Gastroesophageal reflux disease, unspecified whether esophagitis present (K21.9) Active confirmed 049654240 Problem Colon cancer screening (Z12.11) Active confirmed [id number] PLAN OF TREATMENT Future Test Test Name Order Date COLONOSCOPY 08/26/2022 Insurance Providers Payer Name Payer Address Payer Phone Subscriber Number Group Number Insured Name Patient Relationship to Insured Coverage Start Date Coverage End Date [employer] [address] [address] [place], [place] [id number] VINEET CAGE Self - patient is the insured MEDICAL (GENERAL) HISTORY Medical History History ICD Code Nephrolithiasis hypertension BPH GERD Colon polyps Depression Surgical History Surgery Date(Month/Year) Multiple cystoscopies/ESWLs for nephroli thiasis
== END 2024-09-27 11:16 | disposition home or self-care (01) ==
PROVIDERS: PCP Internal Medicine; Visit Provider Internal Medicine
DX: I10 Essential (primary) hypertension (principal); G47.33 Obstructive sleep apnea (adult) (pediatric)

== ENCOUNTER → 2024-09-27 10:23 | Outpatient (BNVA) | payer OTHER, SELFPAY | PROVIDERS: PCP Internal Medicine; Visit Provider Internal Medicine | DX: I10 Essential (primary) hypertension (principal); G47.33 Obstructive sleep apnea (adult) (pediatric) | CPT/HCPCS: 96127; 99212 ==

== ENCOUNTER 2024-10-19 08:46 | Outpatient (AMB) | payer OTHER, SELFPAY ==
[2024-10-19 08:49] VITALS: BP 138/80; PULSE 78; RESP 16; TEMP 36.8; O2SAT 97; BMI 30.9
--- NOTE | 2024-10-19 08:49 | MHC.PC.OV ---
Vital Signs 10/19/24 08:49 Height 5 ft 4 in Weight 180 lb BMI 30.9 BP 138/80 Respiration 16 Pulse 78 Pulse Source Pulse Oximeter Temp 98.3 F Pulse Oximetry (%) 97 Oxygen Delivery Method Room Air Intake Visit Reasons: PRE OP bilateral cataracts 10/29 & 11/12 Production Operations Engineer Required: No Production Operations Engineer Name: Zahira Corral PA-C Information Interpreted: non-clinical & clinical Accompanied by: Self / Same As Patient Allergies No Known Allergies Allergy (Verified 10/19/24 09:16) Medication List - Last Reconciled 10/19/24 by Zahira Corral PA-C amlodipine 2.5 mg PO DAILY 90 days blood pressure monitor As directed CPAP (CPAP Machine/Device) autoPAP mode 6-20 cmH2O ipratropium bromide 2 sprays intranasal BID 30 days MDD NASAL CONGESTION lisinopril 40 mg PO DAILY 90 days nabumetone 750 mg PO BID Tobacco use date assessed: 10/19/24 Dental Screening Dental Screen Date: 09/27/24 [facility] Medical History (Updated 10/19/24 @ 09:21 by Zahira Corral PA-C) Glaucoma Bilateral cataracts Pre-operative clearance Daytime somnolence Mild recurrent major depression Screen for colon cancer Obesity (BMI 30-39.9) BPH (benign prostatic hyperplasia) Cataract Renal calculi Colon polyps History of hypertension Overweight (BMI 25.0-29.9) Surgical History Umbilical hernia (09/14/24) H/O colonoscopy H/O lithotripsy Family History Mother Mental health disorder Father Hypertension Dialysis complication Social History Housing: Apartment Alcohol intake: never Patient Tobacco Use Status: Former Tobacco user Tobacco use type: Cigarette e-Cigarette/Vaping Use: Never Used Second Hand Smoke Exposure: No Substance Use Type: Opiates service: No Current occupational status: unemployed Cognitive needs: No Hearing needs: No Vision needs: Yes Questionnaire PHQ-9 Over the last 2 weeks, how often have you been bothered by any of the following problems? 1. Little interest or pleasure in doing things: not at all 2. Feeling down, depressed, or hopeless: not at all 3. Trouble falling or staying asleep, or sleeping too much: not at all 4. Feeling tired or having little energy: not at all 5. Poor appetite or overeating: not at all 6. Feeling bad about yourself - or that you are a failure or have let yourself or your family down: not at all 7. Trouble concentrating on things, such as reading the newspaper or watching television: not at all 8. Moving or speaking so slowly that other people could have noticed. Or the opposite - being so fidgety or restless that you have been moving around a lot more than usual: not at all 9. Thoughts that you would be better off or of hurting yourself in some way: not at all Total score: 0 Depression Screening Interpretation: Negative Depression Screening Done: Yes 81129 - PHQ-9 Billing: Yes Source: Developed by Drs. Osmin Gong, Raine Sánchez, Serg Mclain and colleagues, with an educational allan from [employer]. Thrive Questionnaire Date Thrive assessed: 10/19/24 I am a: Patient What is your living situation today?: I have a steady place to live Within the past 12 months, did the food you bought not last and you didn't have the money to get more?: Never true Within the past 12 months, did you worry whether your food would run out before you got money to buy more?: Never true Do you have trouble paying for medicines?: No Do you have trouble getting transportation to medical appointments?: No Do you have trouble paying your heating and electricity bill?: No Do you have trouble taking care of your child, family member or friend?: No Do you have trouble with day-to-day activities such as bathing, preparing meals, shopping, managing finances, etc.?: No Are you currently unemployed and looking for a job?: No Are you interested in more education?: No Please select the resources that you would like help with: None THRIVE Score: 0 AUDIT C Alcohol Use Questionnaire (AUDIT-C) 1. How often do you have a drink containing alcohol?: Never Total Score: 0 Score Reviewed/Action Taken: No JESSICA-7 AMB Questionnaire JESSICA-7 Date JESSICA - 7 assessed: 10/19/24 Feeling nervous, anxious, or on edge: 0 = Not at all Not being able to stop or control worryin = Not at all Worrying too much about different things: 0 = Not at all Trouble relaxin = Not at all Being so restless that it is hard to sit still: 0 = Not at all Becoming easily annoyed or irritable: 0 = Not at all Feeling afraid as if something awful might happen: 0 = Not at all Total JESSICA-7 score (0-4 normal; 5-9 mild; 10-14 moderate; 15-21 severe): 0 Source: Developed by Drs. Osmin Gong, Raine Sánchez, Serg Mclain and colleagues, with an educational allan from [employer]. JESSICA-7 Assessment Billing JESSICA-7 Assessment Tool: JESSICA-7 Assessment 53549 Physical exam (Primary Care) Vital Signs: Last Vital Signs Temp 98.3 F 10/19/24 08:49 Pulse 78 10/19/24 08:49 Resp 16 10/19/24 08:49 BP 138/80 10/19/24 08:49 Pulse Ox 97 10/19/24 08:49 Oxygen Delivery Method Room Air 10/19/24 08:49 Care Plan Goal for BP management: <130/80 at goal BMI result Body Mass Index 30.9 BMI Assessment/Plan discussion: High BMI High, discussed plan: lifestyle, weight reduction, dietary, physical activity and alcohol moderation Tobacco/Smoking Status: Tobacco use Status Tobacco use date assessed 10/19/24 10/19/24 08:58 Patient Tobacco Use Status Former Tobacco user 10/19/24 08:58 Tobacco use type Cigarette 10/19/24 08:58 e-Cigarette/Vaping Use Never Used 10/19/24 08:58 PHQ-9: PHQ-9 Score PHQ-9: Total score 0 10/19/24 09:22 Depression Screening Interpretation: Negative Thrive Assessment: Date of Thrive Assessment Date Thrive assessed 10/19/24 10/19/24 08:58 Coding Level of Care Code Est Pt Level 4 (18165) Complex EM visit Add On G2211 Diagnoses Pre-operative clearance Z01.818 Bilateral cataracts H26.9 Nocturnal hypoxemia G47.34 JULIA (obstructive sleep apnea) G47.33 Essential hypertension I10 Glaucoma H40.9 Obesity (BMI 30-39.9) E66.9 Additional Codes JESSICA-7 Assessment Billing - JESSICA-7 Assessment Tool: JESSICA-7 Assessment 17568 ([id number]) PHQ-9 - 01509 - PHQ-9 Billing: Yes ([id number]) Assessment & Plan Assessment & Plan (1) Pre-operative clearance: Code(s): Z01.818 - Encounter for other preprocedural examination Category: Medical Plan: Patient is medically cleared for surgery for cataract for bilateral eyes on 10/29/2024 and 11/12/[address] Mancini. (2) Bilateral cataracts: Comment: planned for surgery with [facility] 10/29/2024 and 11/12/2024 Code(s): H26.9 - Unspecified cataract Category: Medical (3) Nocturnal hypoxemia: Comment: HE HAS NOCTURNAL HYPOXEMIA SECONDARY TO JULIA/HYPOVENTILATION , AND IT IS EXPECTED TO IMPROVE HE USES CPAP REGULARLY. HE CHECKS HIS O2 SAT AT HOME AND IT IS IN NORMAL RANGE. Code(s): G47.34 - Idiopathic sleep related nonobstructive alveolar hypoventilation Category: Medical (4) JULIA (obstructive sleep apnea): Comment: HE HAS SEVERE OBSTRUCTIVE SLEEP APNEA. HE IS VERY COMPLIANT AND USES CPAP REGULARLY. HE MISSES ONLY A FEW NIGHTS PER MONTH. HE HAS GREATLY BENEFITING FROM THE USE OF CPAP. Code(s): G47.33 - Obstructive sleep apnea (adult) (pediatric) Category: Medical (5) Essential hypertension: Code(s): I10 - Essential (primary) hypertension Category: Medical (6) Glaucoma: Code(s): H40.9 - Unspecified glaucoma Category: Medical (7) Obesity (BMI 30-39.9): Comment: THIS GENTLEMAN IS MODERATELY OBESE, WEIGHT FLUCTUATES, BY A FEW LBS. BUT MOSTLY STAYING STABLE. Code(s): E66.9 - Obesity, unspecified Category: Medical Plan Plan Patient was informed and verbally consented to the use of an ambient scribe for clinic note documentation during this visit. 1. Essential Hypertension The patient is to continue Amlodipine and lisinopril for blood pressure management, which remains stable. Routine monitoring is essential. 2. Chronic Pain Continue with existing pain management, considering adjustments preoperatively. 3. Osteoarthritis Current pain management will continue with adherence to oral medications. Temporary drug adjustments need consideration before surgery. 4. Sleep Apnea The continued use of CPAP is critical for sleep apnea management, with periodic evaluations to ensure its effectiveness. 5. Glaucoma Ongoing monitoring and potential treatment adjustments post-cataract surgery are essential, with close follow-up. 6. Cataracts Coordination with ophthalmology for cataract management, potentially coinciding with plans for glaucoma. Patient is medically cleared for surgery for cataract for bilateral eyes on 10/29/2024 and 11/12/[address] Mancini. Patient Instructions: Patient Instructions - Continue taking prescribed blood pressure and pain management medications as directed. - Use CPAP machine nightly as part of ongoing sleep apnea management. - Temporary cessation of certain medications is advised prior to surgery; follow specific instructions. - Follow-up with ophthalmology for cataract and glaucoma management. - Undergo EKG as part of surgical preparation. - Maintain regular follow-ups to monitor and manage ongoing medical conditions. Scribe Plan - Not visible on output: History of Present Illness The patient is a 59-year-old male presenting for evaluation related to planned surgical procedures for bilateral cataract surgery with Dr. Mancini. He is planned to have left cataract surgery on 10/19/[address] Mancini. He is planned to have right cataract surgery on 11/12/[address] Mancini. He has essential hypertension, well-managed with Amlodipine and lisinopril, and denies symptoms of chest pain or shortness of breath during activities, indicating stable control. The patient experiences obstructive sleep apnea and utilizes a CPAP device effectively. He has a diagnosis of osteoarthritis contributing to chronic pain, which is managed with prescribed medication, taken twice daily. Temporary modification of medication use is being considered in preparation for surgery to minimize potential bleeding risks. The patient is also managing ophthalmologic concerns, notably glaucoma, requiring ongoing evaluation and potential intervention. 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 - Family status: History provided by the patient, no family is mentioned. - Functional status: Actively performs duties related to work, indicating functional capability. - Activity level: Continues with activities to support work duties. Review of Systems - Musculoskeletal: Reports chronic pain related to osteoarthritis, worse in cold weather. - Ocular: Reports dry eyes, glaucoma concerns, no current use of prescribed eye drops. Physical Exam Appearance: Alert. Oriented X3. No acute distress. Head: Normal external exam. Normocephalic. Atraumatic. Eyes: Pupils are equal, round, and reactive to light. Extraocular movements intact. Conjunctiva and sclera normal. Eyelids normal. Bilateral cataract noted. Throat: Pharynx normal. Uvula midline. Moist mucous membranes. Neck: Normal inspection. Neck supple. Full range of motion. Normal carotid no bruits noted. Cardiovascular: Normal heart rate and rhythm. Heart sound normal. No murmurs noted. Pulses normal throughout. Respiratory: No respiratory distress. Painless inspiration. Breath sounds normal. No wheezes/rales/rhonchi noted. Chest nontender. No accessory muscle usage noted or decreased air movement noted. Back: Full range of motion noted. Skin: Skin warm and dry. Normal skin color. Normal skin turgor. No rashes/lesions/lacerations noted. Extremities: Extremities exhibit normal range of motion. Extremities nontender. Neuro: Oriented X 3. No motor deficit. No sensory deficit. Reflexes normal. Plan Patient was informed and verbally consented to the use of an ambient scribe for clinic note documentation during this visit. 1. Essential Hypertension The patient is to continue Amlodipine and lisinopril for blood pressure management, which remains stable. Routine monitoring is essential. 2. Chronic Pain Continue with existing pain management, considering adjustments preoperatively. 3. Osteoarthritis Current pain management will continue with adherence to oral medications. Temporary drug adjustments need consideration before surgery. 4. Sleep Apnea The continued use of CPAP is critical for sleep apnea management, with periodic evaluations to ensure its effectiveness. 5. Glaucoma Ongoing monitoring and potential treatment adjustments post-cataract surgery are essential, with close follow-up. 6. Cataracts Coordination with ophthalmology for cataract management, potentially coinciding with plans for glaucoma. Discussion Notes During this visit, I discussed with the patient the importance of ongoing management for his chronic conditions to ensure optimal results from his upcoming surgery. We reviewed the use of Amlodipine and Xenopril for blood pressure control, and the need for continuation of CPAP therapy for sleep apnea. I emphasized the importance of adhering to his pain medication regimen but also the need to adjust medication use in preparation for surgery to mitigate bleeding risk. We discussed the current status of his ophthalmic issues, including cataracts and glaucoma, and planned for further specialist consultation. I advised on the necessity of an EKG as part of the pre-surgery evaluation. Patient Instructions - Continue taking prescribed blood pressure and pain management medications as directed. - Use CPAP machine nightly as part of ongoing sleep apnea management. - Temporary cessation of certain medications is advised prior to surgery; follow specific instructions. - Follow-up with ophthalmology for cataract and glaucoma management. - Undergo EKG as part of surgical preparation. - Maintain regular follow-ups to monitor and manage ongoing medical conditions.
--- OUTSIDE RECORDS SUMMARY | 2024-10-19 09:20 | XMS_ITS | Patient Health Record ---
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 Name Role Phone Isamar Diaz Primary Care [...] Problem Status W/U Status Risk Notes Problem [id number] Colon cancer screening (Z12.11) Active confirmed Problem [id number] Gastroesophageal reflux disease, unspecified whether esophagitis present (K21.9) Active confirmed Plan Of Treatment Future Test Test Name Order Date COLONOSCOPY 08/26/2022 Insurance Providers Payer Name Payer Address Payer Phone Subscriber Number Group Number Insured Name Patient Relationship to Insured Coverage Start Date Coverage End Date [facility] [address] [address] [place], [place] [id number] [employer]INEET [employer] Self - patient is the insured Medical (General) History Medical History History ICD Code Nephrolithiasis hypertension BPH GERD Colon polyps Depression Surgical History Surgery Date(Month/Year) Multiple cystoscopies/ESWLs for nephroli thiasis
== END 2024-10-19 09:14 | disposition home or self-care (01) ==
PROVIDERS: PCP Internal Medicine; Visit Provider Physician Assistant Medical
DX: H26.9 Unspecified cataract (principal); G47.34 Idiopathic sleep related nonobstructive alveolar hypoventilation; E66.9 Obesity, unspecified; Z68.30 Body mass index [BMI] 30.0-30.9, adult; Z01.818 Encounter for other preprocedural examination; G47.33 Obstructive sleep apnea (adult) (pediatric); I10 Essential (primary) hypertension; H40.9 Unspecified glaucoma

== ENCOUNTER → 2024-10-19 08:46 | Outpatient (BNVA) | payer OTHER, SELFPAY | PROVIDERS: PCP Internal Medicine; Visit Provider Physician Assistant Medical | DX: Z01.818 Encounter for other preprocedural examination (principal); H26.9 Unspecified cataract; G47.34 Idiopathic sleep related nonobstructive alveolar hypoventilation; G47.33 Obstructive sleep apnea (adult) (pediatric); I10 Essential (primary) hypertension; H40.9 Unspecified glaucoma; E66.9 Obesity, unspecified | CPT/HCPCS: 96127; 99212 ==

== ENCOUNTER → 2024-10-23 13:27 | Outpatient (BNV) | payer OTHER, SELFPAY | PROVIDERS: PCP Internal Medicine; Visit Provider Internal Medicine | DX: Z01.810 Encounter for preprocedural cardiovascular examination (principal) | CPT/HCPCS: 93010 ==

== ENCOUNTER 2024-10-29 06:14 | Day surgery (SDC) | payer OTHER, SELFPAY ==
--- NOTE | 2024-10-23 13:27 | ECG_ITS ---
Test Reason : pre op cataracts Blood Pressure : */* mmHG Vent. Rate : 71 BPM Atrial Rate : 71 BPM P-R Int : 140 ms QRS Dur : 90 ms QT Int : 382 ms P-R-T Axes : 76 53 52 degrees QTcB Int : 415 ms Normal sinus rhythm Normal ECG When compared with ECG of 22-Dec-2022 19:55, No significant change was found Referred By: Zahira Corral Electronically Signed By: JUANIS LAGUNAS
[2024-10-23 15:25] VITALS: BMI 30.9
[2024-10-25 09:03] VITALS: BMI 30.9
--- NOTE | 2024-10-25 14:25 | HO.ANESPROP2 ---
Documented by User: Rupal Roper NP 10/25/24 14:26 HPI - Anesthesia Eval Consult details Narrative: 59yo M for Left Cataract Extraction IOL Insertion No previous cataract on record [facility] Active Problems Active Problems: All Active Problems Status post umbilical hernia repair, follow-up exam (Acute) Umbilical hernia (Acute) Polyarthralgia (Acute) Left buttock abscess (Acute) Right knee pain (Acute) Left knee pain (Acute) Knee pain, bilateral (Acute) Nocturia more than twice per night (Acute) Nocturia associated with benign prostatic hyperplasia (Acute) Nocturnal hypoxemia (Acute) JULIA (obstructive sleep apnea) (Acute) Obese (Acute) Essential hypertension (Acute) Physical exam (Acute) Pre-operative clearance (Acute) Cataract (Acute) Overweight (BMI 25.0-29.9) (Acute) Glaucoma (Acute) Bilateral cataracts (Acute) Umbilical hernia (Acute 09/14/24) Obesity (BMI 30-39.9) (Acute) BPH (benign prostatic hyperplasia) (Acute) Renal calculi (Acute) Colon polyps (Acute) Past Medical History Medical History Sleep apnea Glaucoma Bilateral cataracts Obesity (BMI 30-39.9) Daytime somnolence Mild recurrent major depression BPH (benign prostatic hyperplasia) Renal calculi Colon polyps History of hypertension Family History Family History Mother Mental health disorder Father Hypertension Dialysis complication Family history of problems with anesthesia: No Surgical History Surgical History Hx of umbilical hernia repair H/O colonoscopy H/O lithotripsy History of Problems with Anesthesia: No Social History Social History Housing: Apartment Alcohol intake: never Patient Tobacco Use Status: Former Tobacco user Tobacco use type: Cigarette e-Cigarette/Vaping Use: Never Used Second Hand Smoke Exposure: No Substance Use Type: Opiates Christianity Healthcare Practices: Zoroastrianism Advance Directives Information Provided: Yes Advance Directives on File: No service: No Current occupational status: unemployed Cognitive needs: No Hearing needs: No Vision needs: Yes Meds Allergies Allergy/AdvReac Type Severity Reaction Status Date / Time No Known Allergies Allergy Verified 10/29/24 06:41 Home Medications ?Medication ?Instructions ?Recorded ?Confirmed ?Last Taken ?Type nabumetone 750 mg tablet 750 mg PO BID 10/19/24 10/25/24 Unknown History Exam Height,Weight and Vital Signs: Height 5 ft 4 in Weight 81.647 kg Assessment and Plan Assessment Anesthesia Assessment: Chart Reviewed Final Anesthetic Review Family History of Problems with Anesthesia: No History of Problems with Anesthesia: No Documented by User: June Penaloza MD 10/29/24 07:21 [facility] Past Medical History Medical History Sleep apnea Glaucoma Bilateral cataracts Obesity (BMI 30-39.9) Daytime somnolence Mild recurrent major depression BPH (benign prostatic hyperplasia) Renal calculi Colon polyps History of hypertension Family History Family History Mother Mental health disorder Father Hypertension Dialysis complication Surgical History Surgical History Hx of umbilical hernia repair H/O colonoscopy H/O lithotripsy Social History Social History Housing: Apartment Alcohol intake: never Patient Tobacco Use Status: Former Tobacco user Tobacco use type: Cigarette e-Cigarette/Vaping Use: Never Used Second Hand Smoke Exposure: No Substance Use Type: Opiates Christianity Healthcare Practices: Zoroastrianism Advance Directives Information Provided: Yes Advance Directives on File: No service: No Current occupational status: unemployed Cognitive needs: No Hearing needs: No Vision needs: Yes Meds Allergies Allergy/AdvReac Type Severity Reaction Status Date / Time No Known Allergies Allergy Verified 10/29/24 06:41 Home Medications ?Medication ?Instructions ?Recorded ?Confirmed ?Last Taken ?Type nabumetone 750 mg tablet 750 mg PO BID 10/19/24 10/25/24 Unknown History Exam Airway Mallampati Class: II (missing multiple teeth) TM Dist: >3cm Neck ROM: Full Heart: rrr Lungs: cta Assessment and Plan Assessment Anesthesia Assessment: Anesthesia Plan Discussed Final Anesthetic Review NPO: Yes ASA Class: II Final Preanesthetic Review: No Changes in Pt Med Stat, Meds/Allgs Chart Reviewed and Consent Obtained/Reviewed Patient Risk: Low Procedure Risk: Low Anesthetic Plan Anesthetic Plan: MAC: Disposition: Standard PACU
[2024-10-29] MEDS: Tetracaine HCl/PF 0.5% Oph Sol 4 ML DROPS 1 DROP EYE-LEFT (06:49)
[2024-10-29] MEDS: Cyclopentolate 1 % Ophth Sol 2 ML DRPBTL 1 DROP EYE-LEFT ×3 (06:50→07:08)
[2024-10-29] MEDS: Tropicamide 1 % Ophth Sol 3 ML BTL 1 DROP EYE-LEFT ×3 (06:52→07:13)
[2024-10-29] MEDS: Ketorolac Tromethamine 0.5% Op 5 ML DROPS 1 DROP EYE-LEFT ×3 (06:53→07:14)
[2024-10-29] MEDS: Phenylephrine HCL 2.5% Oph SoL 2 ML BOTTLE 1 DROP EYE-LEFT ×3 (06:54→07:16)
[2024-10-29 07:28] VITALS: BP 145/69; PULSE 71; RESP 15; TEMP 36.7; O2SAT 95
--- NOTE | 2024-10-29 08:00 | MHC.SHP ---
Pre-Procedural Eval Section A - 24 Hr Update-Section A only Date of Service: 10/29/24 The patient is an INPATIENT: No Changes since office visit: No Cold of Flu in the past 2 weeks, No New Medical Problems, No Changes in Medication and No Patient answered all questions The patient has been examined within 24 hours of the surgical procedure. The History & Physical has been completed within 30 days and I have reviewed it.: Yes Section B - Complete if H&P > 30 days Chief Complaint: Age-related nuclear cataract, left eye Allergies: Allergies Allergy/AdvReac Type Severity Reaction Status Date / Time No Known Allergies Allergy Verified 10/29/24 06:41 Plan Diagnosis/Plan: Unchanged I have reviewed the history and physical and performed a pertinent physical examination on my patient. No changes have occurred unless specified. Time Spent With Patient Time: Total time managing care of this patient today ____ minutes.
--- NOTE | 2024-10-29 08:00 | HO.PNOPHT ---
Ophthalmology Procedure Procedure Date of Service: 10/29/24 Ophthalmology Viscoelastic: Healon Duet Dual Pack Pro Ophthalmology Lenses: IOL Acrysof MP - [id number] (28) Procedure Notes: PREOPERATIVE DIAGNOSIS: Decreased visual acuity left eye secondary to cataract POSTOPERATIVE DIAGNOSIS: Same PROCEDURE: Left cataract extraction with intraocular lens insertion SURGEON: Jv Mancini M.D. ANESTHESIA: Topical ESTIMATED BLOOD LOSS: None COMPLICATIONS: None After obtaining informed consent, the patient was brought to the operation room suite and placed in the supine position. After adequate sedation per anesthesia, topical drops of Tetracaine were given to the left eye. The eye was then prepped and draped in the usual sterile fashion. The operating room microscope was then positioned over the operative eye and a lid speculum placed. A paracentesis was created. Viscoelastic was then instilled into the anterior chamber. A three plane incision was then created temporally, utilizing a 2.85 mm keratome. Capsulotomy forceps were then utilized to create a circular tear capsulotomy. Hydrodissection and hydrodelineation were carried out until adequate mobilization of the nucleus occurred. Phacoemulsification was then utilized to remove the dense central nucleus followed by removal of the cortical material utilizing the automated aspiration irrigation unit. Viscoat elastic was instilled into the posterior capsular bag followed by placement of a posterior chamber intraocular lens without difficulty. The residual Viscoat elastic was then removed utilizing the automated IA machine. The wound was check and found to be watertight. The patient tolerated the procedure well and the lid speculum was removed. Intracameral injection of Vigamox 0.1 mL followed by a subtenon injection of Kenalog-40 0.2 mL were administered. The patient will be seen in the a.m.
[2024-10-29 08:30] VITALS: BP 140/68; PULSE 71; RESP 18; TEMP 36.7
== END 2024-10-29 08:44 | disposition home or self-care (01) ==
PROVIDERS: PCP Internal Medicine; Visit Provider Ophthalmology
PROC: (CPT 66985; principal; 2024-10-29 08:00)
DX: H25.12 Age-related nuclear cataract, left eye (principal); H52.4 Presbyopia; H40.013 Open angle with borderline findings, low risk, bilateral; H40.033 Anatomical narrow angle, bilateral; H18.413 Arcus senilis, bilateral; H11.153 Pinguecula, bilateral; I10 Essential (primary) hypertension; G47.33 Obstructive sleep apnea (adult) (pediatric); Z99.89 Dependence on other enabling machines and devices; Z79.899 Other long term (current) drug therapy
CPT/HCPCS: 66984; 93005; J3301; V2630

== ENCOUNTER 2024-11-12 06:10 | Day surgery (SDC) | payer OTHER, SELFPAY ==
--- OUTSIDE RECORDS SUMMARY | 2024-10-18 07:27 | XMS_ITS | Patient Health Record ---
Author Organization [facility] Address [address] [place] [address] Care Team Providers Care Manager Search Name Role Phone Isamar Diaz Primary Care Provider Unavailab Scott Shaffer Jr Unavailable Allergies No Known Allergies Reason For Referral No Information Medications Medication SIG (Take, Route, Frequency, Duration) Notes [...] HCl 150 MG as directed Orally Active Immunizations Vaccine Route Administration Date Status Comme nts Influenza Unknown 08/26/2022 Refused Social History Tobacco Use: Social History Observation Description Date Details (start date - stop date) Former Smoker NA - NA Tobacco Use/Smoking Question Answer Notes Patient is [...] Never (0 point) Points 1 Interpretation Negative Problems Problem Type SNOMED Code ICD Code Onset Dates Problem Status W/U Status Risk Notes Problem 151087996 Colon cancer screening (Z12.11) Active confirmed Problem [id number] Gastroesophageal reflux disease, unspecified whether esophagitis present (K21.9) Active confirmed Plan Of Treatment Future Test Test Name Order Date COLONOSCOPY 08/26/2022 Insurance Providers Payer Name Payer Address Payer Phone Subscriber Number Group Number Insured Name Patient Relationship to Insured Coverage Start Date Coverage End Date [facility] [address] [address] [place], [place] [id number] VINEET CAGE Self - patient is the insured Medical (General) History Medical History History ICD Code Nephrolithiasis hypertension BPH GERD Colon polyps Depression Surgical History Surgery Date(Month/Year) Multiple cystoscopies/ESWLs for nephroli thiasis
[2024-10-25 09:07] VITALS: BMI 30.9
--- NOTE | 2024-11-08 14:31 | HO.ANESPROP2 ---
HPI - Anesthesia Eval Consult details Narrative: 59yo M for Right Cataract Extraction IOL Insertion Left eye 10/29/24: Local only (unable to obtain IV access) [facility] Active Problems Active Problems: All Active Problems Status post umbilical hernia repair, follow-up exam (Acute) Umbilical hernia (Acute) Polyarthralgia (Acute) Left buttock abscess (Acute) Right knee pain (Acute) Left knee pain (Acute) Knee pain, bilateral (Acute) Nocturia more than twice per night (Acute) Nocturia associated with benign prostatic hyperplasia (Acute) Nocturnal hypoxemia (Acute) JULIA (obstructive sleep apnea) (Acute) Obese (Acute) Essential hypertension (Acute) Physical exam (Acute) Pre-operative clearance (Acute) Cataract (Acute) Overweight (BMI 25.0-29.9) (Acute) Glaucoma (Acute) Bilateral cataracts (Acute) Umbilical hernia (Acute 09/14/24) Obesity (BMI 30-39.9) (Acute) BPH (benign prostatic hyperplasia) (Acute) Renal calculi (Acute) Colon polyps (Acute) Past Medical History Medical History Sleep apnea Glaucoma Bilateral cataracts Obesity (BMI 30-39.9) Daytime somnolence Mild recurrent major depression BPH (benign prostatic hyperplasia) Renal calculi Colon polyps History of hypertension Family History Family History Mother Mental health disorder Father Hypertension Dialysis complication Family history of problems with anesthesia: No Surgical History Surgical History Hx of umbilical hernia repair H/O colonoscopy H/O lithotripsy History of Problems with Anesthesia: No Social History Social History Housing: Apartment Alcohol intake: never Patient Tobacco Use Status: Former Tobacco user Tobacco use type: Cigarette e-Cigarette/Vaping Use: Never Used Second Hand Smoke Exposure: No Substance Use Type: Opiates Protestant Healthcare Practices: [employer] Advance Directives Information Provided: No Advance Directives on File: No service: No Current occupational status: unemployed Cognitive needs: No Hearing needs: No Vision needs: Yes Meds Allergies Allergy/AdvReac Type Severity Reaction Status Date / Time No Known Allergies Allergy Verified 10/29/24 06:41 Home Medications ?Medication ?Instructions ?Recorded ?Confirmed ?Last Taken ?Type nabumetone 750 mg tablet 750 mg PO BID 10/19/24 10/25/24 Unknown History Exam Height,Weight and Vital Signs: Height 5 ft 4 in Weight 81.647 kg Assessment and Plan Assessment Anesthesia Assessment: Chart Reviewed Final Anesthetic Review Family History of Problems with Anesthesia: No History of Problems with Anesthesia: No
[2024-11-12 06:33] VITALS: BP 141/79; PULSE 70; RESP 15; TEMP 36.7; O2SAT 95
[2024-11-12] MEDS: Tetracaine HCl/PF 0.5% Oph Sol 4 ML DROPS 1 DROP EYE-RIGHT (06:41)
[2024-11-12] MEDS: Cyclopentolate 1 % Ophth Sol 2 ML DRPBTL 1 DROP EYE-RIGHT ×3 (06:45→07:01)
[2024-11-12] MEDS: Tropicamide 1 % Ophth Sol 3 ML BTL 1 DROP EYE-RIGHT ×3 (06:47→07:02)
[2024-11-12] MEDS: Ketorolac Tromethamine 0.5% Op 5 ML DROPS 1 DROP EYE-RIGHT ×3 (06:48→07:03)
[2024-11-12] MEDS: Phenylephrine HCL 2.5% Oph SoL 2 ML BOTTLE 1 DROP EYE-RIGHT ×3 (06:50→07:04)
--- NOTE | 2024-11-12 07:08 | PC.NURSE ---
pt had to be done local with last eye and will be done with local again. 1 iv attempted and unable to start. anesthesia made aware.
--- NOTE | 2024-11-12 07:33 | MHC.SHP ---
Pre-Procedural Eval Section A - 24 Hr Update-Section A only Date of Service: 11/12/24 The patient is an INPATIENT: No Changes since office visit: No Cold of Flu in the past 2 weeks, No New Medical Problems, No Changes in Medication and No Patient answered all questions The patient has been examined within 24 hours of the surgical procedure. The History & Physical has been completed within 30 days and I have reviewed it.: Yes Section B - Complete if H&P > 30 days Chief Complaint: Age-related nuclear cataract, right eye Allergies: Allergies Allergy/AdvReac Type Severity Reaction Status Date / Time No Known Allergies Allergy Verified 11/12/24 06:33 Plan Diagnosis/Plan: Unchanged I have reviewed the history and physical and performed a pertinent physical examination on my patient. No changes have occurred unless specified. Time Spent With Patient Time: Total time managing care of this patient today ____ minutes.
--- NOTE | 2024-11-12 07:34 | HO.PNOPHT ---
Ophthalmology Procedure Procedure Date of Service: 11/12/24 Ophthalmology Viscoelastic: Healon Duet Dual Pack Pro Ophthalmology Lenses: IOL Acrysof MP - [id number] (28) Procedure Notes: PREOPERATIVE DIAGNOSIS: Decreased visual acuity right eye secondary to cataract POSTOPERATIVE DIAGNOSIS: Same PROCEDURE: Right cataract extraction with intraocular lens insertion SURGEON: Jv Mancini M.D. ANESTHESIA: Topical ESTIMATED BLOOD LOSS: None COMPLICATIONS: None After obtaining informed consent, the patient was brought to the operating room suite and placed in the supine position. After adequate sedation per anesthesia, topical drops of Tetracaine were given to the right eye. The eye was then prepped and draped in the usual sterile fashion. The operating room microscope was then positioned over the operative eye and a lid speculum placed. A paracentesis was created. Viscoelastic was then instilled into the anterior chamber. A three plane incision was then created temporally, utilizing a 2.85 mm keratome. Capsulotomy forceps were then utilized to create a circular tear capsulotomy. Hydrodissection and hydrodelineation were carried out until adequate mobilization of the nucleus occurred. Phacoemulsification was then utilized to remove the dense central nucleus followed by removal of the cortical material utilizing the automated aspiration irrigation unit. Viscoelastic was instilled into the posterior capsular bag followed by placement of a posterior chamber intraocular lens without difficulty. The residual Viscoelastic was then removed utilizing the automated IA machine. The wound was checked and found to be watertight. The patient tolerated the procedure well and the lid speculum was removed. Intracameral injection of Vigamox 0.1 mL followed by a subtenon injection of Kenalog-40 0.2 mL were administered. The patient will be seen in the a.m.
[2024-11-12 07:59] VITALS: BP 143/76; PULSE 69; RESP 18; TEMP 36.4; O2SAT 98
== END 2024-11-12 08:08 | disposition home or self-care (01) ==
PROVIDERS: PCP Internal Medicine; Visit Provider Ophthalmology
PROC: (CPT 66985; principal; 2024-11-12 07:30)
DX: H25.11 Age-related nuclear cataract, right eye (principal); H52.4 Presbyopia; H40.013 Open angle with borderline findings, low risk, bilateral; H40.033 Anatomical narrow angle, bilateral; H18.413 Arcus senilis, bilateral; H11.153 Pinguecula, bilateral; I10 Essential (primary) hypertension; G47.33 Obstructive sleep apnea (adult) (pediatric); E66.9 Obesity, unspecified; Z68.30 Body mass index [BMI] 30.0-30.9, adult; G47.34 Idiopathic sleep related nonobstructive alveolar hypoventilation; F33.0 Major depressive disorder, recurrent, mild; Z99.89 Dependence on other enabling machines and devices; Z79.899 Other long term (current) drug therapy; Z87.891 Personal history of nicotine dependence; Z56.0 Unemployment, unspecified
CPT/HCPCS: 66984; J2003; J3301; V2630

== ENCOUNTER 2024-11-15 07:52 | Outpatient (REF) | payer OTHER, SELFPAY ==
--- OUTSIDE RECORDS SUMMARY | 2024-11-15 07:55 | XMS_ITS | Patient Health Record ---
Author Organization [facility] Address [address] [place] [address] Care Team Providers Care Utilities And Maintenance Supervisor Name Role Phone Isamar Diaz Primary Care Provider Unavailab Scott Shaffer Jr Unavailable [phone] Allergies No Known Allergies Reason For Referral [...] Problem Status W/U Status Risk Notes Problem [id number] Colon cancer screening (Z12.11) Active confirmed Problem [id number] Gastroesophageal reflux disease, unspecified whether esophagitis present (K21.9) Active confirmed Plan Of Treatment Future Test Test Name Order Date COLONOSCOPY 08/26/2022 Insurance Providers Payer Name Payer Address Payer Phone Subscriber Number Group Number Insured Name Patient Relationship to Insured Coverage Start Date Coverage End Date [facility] [address] [address] [place], [place] [id number] VINEET CAGE Self - patient is the insured Medical (General) History Medical History History ICD Code Nephrolithiasis hypertension BPH GERD Colon polyps Depression Surgical History Surgery Date(Month/Year) Multiple cystoscopies/ESWLs for nephroli thiasis
[2024-11-15 09:42] LABS: Prostate Specific Antigen 0.29 ng/mL (<0.05-4.0)
== END 2024-11-15 07:53 | disposition home or self-care (01) ==
LOC: HO.LAB 07:52
PROVIDERS: PCP Internal Medicine; Visit Provider Urology
DX: N40.0 Benign prostatic hyperplasia without lower urinary tract symptoms (principal)
CPT/HCPCS: 36415; 84153

== ENCOUNTER 2024-11-22 11:07 | Outpatient (AMB) | payer OTHER, SELFPAY ==
--- NOTE | 2024-11-22 11:20 | A.OFFVIS_ITS ---
Intake Visit Reasons: 1y/PSA/PVR Intake Note: Patient presents today for a follow-up on PSA Meds- None Allergies to Antibiotic- No Known Allergies Blood Thinner- None Post Void Residual: 58ml's TODAY'S PVR:32ML'S Manufacturing Process Technician Required: No Accompanied by: Self / Same As Patient Allergies No Known Allergies Allergy (Verified 11/22/24 11:21) HPI Comments Details: Ziggy is a pleasant male. He is a patient of Dr. White. He is seen for the following urologic conditions - lower urinary tract symptoms PVR 30 Effective emptying Happy with current result Would follow for 5 years Review in 12 months with nurse-practitioner Lower urinary tract symptoms Prior medications include combination therapy doxazosin 8 mg with finasteride, tamsulosin PSA - 12/07 0.3 03/06 - Greenlight laser Initial symptomatology - nocturia x5, weakness of stream, hesitancy, feeling of incomplete emptying - AUA score over 20 with bother 4 PVR 50 cc PFSH Medical History Sleep apnea Glaucoma Bilateral cataracts Obesity (BMI 30-39.9) Daytime somnolence Mild recurrent major depression BPH (benign prostatic hyperplasia) Renal calculi Colon polyps History of hypertension Surgical History (Updated 11/12/24 @ 06:33 by Nafisa Galan RN) History of left cataract extraction Hx of umbilical hernia repair H/O colonoscopy H/O lithotripsy Family History Mother Mental health disorder Father Hypertension Dialysis complication Social History Housing: Apartment Alcohol intake: never Patient Tobacco Use Status: Former Tobacco user Tobacco use type: Cigarette e-Cigarette/Vaping Use: Never Used Second Hand Smoke Exposure: No Substance Use Type: Opiates service: No Current occupational status: unemployed Cognitive needs: No Hearing needs: No Vision needs: Yes Review of Systems Const Denies chills and Denies fever(s) Card Reports no additional complaints and Denies syncope Resp Denies cough GI Denies abdominal pain and Denies heartburn Reports as per HPI and Denies change in libido Neuro Denies syncope Psych Denies change in libido Endo Denies change in libido Physical Exam Const General: cooperative, healthy appearing, comfortable and no acute distress Orientation/consciousness: patient oriented x3 HEENT Face and sinus: Yes normal facial exam Mouth: moist mucous membranes Neck Neck: Yes normal visual inspection, Yes full ROM and Yes trachea midline Chest Chest palpation & inspection: normal inspection of the chest Resp Effort & Inspection: normal respiratory effort, able to speak in complete sentences and no respiratory distress GI Inspection: Yes normal to inspection Back/Spine/Pelvis Cervical Spine: normal cervical lordosis Thoracic/Lumbar Spine: thoracic and lumbar spine normal to inspection Skin General skin exam: no rashes or lesions noted Neuro General: patient oriented x3, gait normal, tone normal and moves all extremities Extrem General: Yes normal to inspection and Yes capillary refill normal Office Procedures Post Void Residual Post Residual Void Post Void Residual (PVR): 32 32767-Tock Void Residual by ultrasound Assessment & Plan Assessment & Plan (1) BPH (benign prostatic hyperplasia): Code(s): N40.0 - Benign prostatic hyperplasia without lower urinary tract symptoms Category: Medical Plan 12 month follow-up PVR Patient Instructions: This note is constructed using voice recognition software. While every effort has been made to ensure accuracy automotive window tinter errors may have been included. Imaging studies, laboratory and physical exam results were discussed and reviewed in detail. No major barriers to patient understanding were identified. An opportunity to ask questions regarding the treatment plan was provided. All questions were answered. The patient expressed understanding and agreement with the above treatment plan. The patient is aware they should contact our office by phone for worsening of their current condition or the appearance of new urologic symptoms. Compliance is encouraged with any medications and followup testing that is ordered. It is a privilege to participate in the urologic care of your patient. If you have any questions or concerns regarding treatment for the above conditions, or other urologic issues, please do not hesitate to contact me. The office telephone contact is [phone]. Sincerely, Dr Maxime Humphreys MD, [facility] - Urology Compassionate Specialist Care for the Genitourinary System Coding Level of Care Code Est Pt Level 4 (92306) Diagnoses BPH (benign prostatic hyperplasia) N40.0 CPT Codes Post Residual Void - PVR CPT Code: 36468-Iuzl Void Residual by ultrasound ([id number])
--- OUTSIDE RECORDS SUMMARY | 2024-11-22 13:28 | XMS_ITS | Patient Health Record ---
Author Organization [facility] Address [address] [place] [address] Care Team Providers Care Visual Developer Name Role Phone Isamar Diaz Primary Care [...] Problem Status W/U Status Risk Notes Problem [id number] Colon cancer screening (Z12.11) Active confirmed Problem [id number] Gastroesophageal reflux disease, unspecified whether esophagitis present (K21.9) Active confirmed Plan Of Treatment Future Test Test Name Order Date COLONOSCOPY 08/26/2022 Insurance Providers Payer Name Payer Address Payer Phone Subscriber Number Group Number Insured Name Patient Relationship to Insured Coverage Start Date Coverage End Date [facility] [address] [address] [place], [place] [id number] VINEET CAGE Self - patient is the insured Medical (General) History Medical History History ICD Code Nephrolithiasis hypertension BPH GERD Colon polyps Depression Surgical History Surgery Date(Month/Year) Multiple cystoscopies/ESWLs for nephroli thiasis
== END 2024-11-22 12:03 | disposition home or self-care (01) ==
LOC: HO.HUSH 11:08
PROVIDERS: PCP Internal Medicine; Visit Provider Urology
DX: N40.0 Benign prostatic hyperplasia without lower urinary tract symptoms (principal); Z13.9 Encounter for screening, unspecified
CPT/HCPCS: 99214

== ENCOUNTER → 2024-11-22 11:07 | Outpatient (BNVA) | payer OTHER, SELFPAY | PROVIDERS: PCP Internal Medicine; Visit Provider Urology | DX: N40.0 Benign prostatic hyperplasia without lower urinary tract symptoms (principal) | CPT/HCPCS: 51798; 81003; 99212 ==

== ENCOUNTER 2024-12-26 13:44 | Outpatient (AMB) | payer OTHER, SELFPAY ==
--- OUTSIDE RECORDS SUMMARY | 2024-12-26 13:48 | XMS_ITS | Patient Health Record ---
Author Organization [facility] Address [address] [place] [address] Care Team Providers Care Specimen Preparation Assistant Name Role Phone Isamar Diaz Primary Care [...] Problem Status W/U Status Risk Notes Problem [id number] Colon cancer screening (Z12.11) Active confirmed Problem [id number] Gastroesophageal reflux disease, unspecified whether esophagitis present (K21.9) Active confirmed Plan Of Treatment Future Test Test Name Order Date COLONOSCOPY 08/26/2022 Insurance Providers Payer Name Payer Address Payer Phone Subscriber Number Group Number Insured Name Patient Relationship to Insured Coverage Start Date Coverage End Date [facility] [address] [address] [place], [place] [id number] VINEET CAGE Self - patient is the insured Medical (General) History Medical History History ICD Code Nephrolithiasis hypertension BPH GERD Colon polyps Depression Surgical History Surgery Date(Month/Year) Multiple cystoscopies/ESWLs for nephroli thiasis
[2024-12-26 13:52] VITALS: BP 138/60; PULSE 72; O2SAT 96; BMI 30.9
--- NOTE | 2024-12-26 13:52 | MHC.OFFVIS ---
Vital Signs 12/26/24 13:52 Height 5 ft 4 in Weight 180 lb BMI 30.9 BP 138/60 Blood Pressure Location Lt brachial Position Sitting Pulse 72 Pulse Source Pulse Oximeter Pulse Oximetry (%) 96 Oxygen Delivery Method Room Air Intake Visit Reasons: Obstructive sleep apnea Intake Note: pt here for follow up of JULIA, doing well Nursing Home Administrator Required: No Allergies No Known Allergies Allergy (Verified 12/26/24 13:55) Medication List - Last Reconciled 12/26/24 by Izzy Starr MD amlodipine 5 mg PO DAILY 90 days blood pressure monitor As directed CPAP (CPAP Machine/Device) autoPAP mode 6-20 cmH2O ipratropium bromide 2 sprays intranasal BID 30 days MDD NASAL CONGESTION lisinopril 40 mg PO DAILY 90 days nabumetone 750 mg PO BID PRN 90 days Do you need a note to return to daycare/school/sports/work: No HPI HPI Obstructive sleep apnea: Details: THIS 59 YEARS OLD VERY PLEASANT GENTLEMAN IS HERE FOR 6 MONTHS FOLLOW-UP. HE IS A CASE OF OBSTRUCTIVE SLEEP APNEA AND USES CPAP VERY REGULARLY EVERY NIGHT. HE HAS AN ISSUE WITH THE WATER TANK, BUT HE HAS SOLVED IT BY PLACING A LITTLE WEIGHT ON THE WATER TANK AT NIGHTTIME. HIS COMPLIANCE REPORT INDICATES THAT HE USES FOR ONLY 1 HOUR 45 MINUTES BUT HE SAY IS THAT HE USES THE CPAP THROUGHOUT THE NIGHT AT LEAST FOR 6 HOURS PER NIGHT AND SLEEPS WELL. HE HAS SHAHANA MODEL. HE IS TOTALLY HAPPY WITH THE USE OF CPAP BECAUSE HE SAY IS HE KEEPS IT ON AT LEAST FOR 6 HOURS EVERY NIGHT. [facility] Medical History Sleep apnea Glaucoma Bilateral cataracts Obesity (BMI 30-39.9) Daytime somnolence Mild recurrent major depression BPH (benign prostatic hyperplasia) Renal calculi Colon polyps History of hypertension Surgical History History of left cataract extraction Hx of umbilical hernia repair H/O colonoscopy H/O lithotripsy Family History Mother Mental health disorder Father Hypertension Dialysis complication Social History Housing: Apartment Alcohol intake: never Patient Tobacco Use Status: Former Tobacco user Tobacco use type: Cigarette e-Cigarette/Vaping Use: Never Used Second Hand Smoke Exposure: No Substance Use Type: Opiates service: No Current occupational status: unemployed Cognitive needs: No Hearing needs: No Vision needs: Yes Review of Systems Const All systems reviewed & are unremarkable except as noted in HPI and below Reports snoring Eyes Reports no additional complaints ENT Reports nasal congestion (AT NIGHT) Card Denies chest pain, Denies irregular heart rhythm and Denies leg edema Resp Reports cough (OCCASIONAL), Reports snoring and Denies wheezing GI Reports no additional complaints Reports nocturia Musc Reports no additional complaints Skin/Breast Reports system reviewed and no additional complaints, except as documented Neuro Reports no additional complaints Psych Reports no additional complaints Endo Reports no additional complaints Raheel/Lymph Reports no additional complaints Aller/Immun Denies wheezing Physical Exam Vital Signs: Last Vital Signs Pulse 72 12/26/24 13:52 BP 138/60 12/26/24 13:52 Pulse Ox 96 12/26/24 13:52 Oxygen Delivery Method Room Air 12/26/24 13:52 BMI result Body Mass Index 30.9 Const General: healthy appearing (EXCEPT FOR BEING OVERWEIGHT), comfortable, no acute distress, alert and awake Orientation/consciousness: patient oriented x3 HEENT Head: Yes normal to inspection General nose exam: No nasal polyps present and No nasal discharge present Face and sinus: Yes sinuses nontender Mouth: oropharynx abnormals (OROPHARYNX IS NARROW AND CROWDED, MALLAMPATI CLASS 4) Throat: Yes posterior oropharynx normal Eyes General: appearance normal, both eyes and all related structures Neck Neck: Yes normal visual inspection, Yes no lymphadenopathy, Yes trachea midline, Yes no JVD and Yes other (NECK CIRCUMFERENCE 17 IN) Thyroid: Thyroid normal Chest Chest palpation & inspection: normal inspection of the chest, normal palpation of entire chest wall and no tenderness Resp Effort & Inspection: normal respiratory effort Auscultation: clear to auscultation bilaterally, no crackles and no wheezes Cardio Palpation: normal PMI Rate: regular rate Rhythm: regular rhythm Heart sounds: no gallops and no murmurs Peripheral pulses: Peripheral pulses 2+ throughout GI Palpation (GI): Soft to palpation, nontender, No hepatosplenomegaly present and no masses Auscultation: normal bowel sounds Back/Spine/Pelvis Thoracic/Lumbar Spine: thoracic and lumbar spine normal to inspection Skin General skin exam: no rashes or lesions noted Neuro General: patient oriented x3 and no focal motor deficits Cranial nerves: Yes CN's II-XII intact bilaterally Extrem General: Yes normal to inspection, Yes no clubbing, cyanosis or edema and Yes no calf tenderness Psych Appearance: grossly normal and well kempt Speech and movement: Normal speech and movement present Results Reviewed Results Reviewed: COMPLIANCE REPORT SHOWS THAT HE USES EVERY NIGHT MISSED ONLY 1/30 NIGHTS IT SHOWS THAT HE USES ON AN AVERAGE 1 HOUR 45 MINUTES EVERY NIGHT, BUT HE CAN TESTS THAT NUMBER, AND CLAIMS THAT HE USES NO LESS THAN 6 HOURS EVERY NIGHT. HE SLEEPS WELL AND RESIDUAL AHI IS ONLY 0.1. Assessment & Plan Assessment & Plan (1) Obesity (BMI 30-39.9): Comment: THIS GENTLEMAN IS MODERATELY OBESE, WEIGHT FLUCTUATES, BY A FEW LBS. BUT MOSTLY STAYING STABLE. Code(s): E66.9 - Obesity, unspecified Category: Medical Plan: AGAIN DISCUSSED WITH HIM ABOUT THE WEIGHT AND HE NEEDS TO LOSE ABOUT 15-20 LB. (2) JULIA (obstructive sleep apnea): Comment: HE HAS SEVERE OBSTRUCTIVE SLEEP APNEA. HE HAS BEEN USING CPAP VERY REGULARLY, EVERY NIGHT. HE CLAIMS THAT HE USES FOR NO LESS THAN 6 HOURS EVERY NIGHT AND SLEEPS GOOD. THE LOW HOURS SHOWN ON THE COMPLIANCE REPORT OR PROBABLY DUE TO POOR TRANSMISSION. Code(s): G47.33 - Obstructive sleep apnea (adult) (pediatric) Category: Medical Plan: ADVISED TO KEEP ON USING THE CPAP EVERY NIGHT, CHECK WITH THE LOCAL DME COMPANY AND SEE IF THEY CAN CHECK THE MACHINE FOR US PROPER USE (3) Nocturnal hypoxemia: Comment: HE HAS NOCTURNAL HYPOXEMIA SECONDARY TO JULIA/HYPOVENTILATION , AND WITH YOU USE OF CPAP IT SEEMS TO HAVE RESOLVED. HE CLAIMS THAT HE CHECKS HIS O2 SAT AT NIGHT AND IT SEEMS TO BE NORMAL . Code(s): G47.34 - Idiopathic sleep related nonobstructive alveolar hypoventilation Category: Medical Plan: NO NEED TO HAVE O2 SUPPLEMENTATION Coding Level of Care Code Est Pt Level 3 (51255) Diagnoses Obesity (BMI 30-39.9) E66.9 UJLIA (obstructive sleep apnea) G47.33 Nocturnal hypoxemia G47.34
== END 2024-12-26 14:09 | disposition home or self-care (01) ==
LOC: HO.HPS 13:44
PROVIDERS: PCP Internal Medicine; Visit Provider Internal Medicine
DX: E66.9 Obesity, unspecified (principal); G47.33 Obstructive sleep apnea (adult) (pediatric); G47.34 Idiopathic sleep related nonobstructive alveolar hypoventilation
CPT/HCPCS: 99213

== ENCOUNTER → 2024-12-26 13:44 | Outpatient (BNVA) | payer OTHER, SELFPAY | PROVIDERS: PCP Internal Medicine; Visit Provider Internal Medicine | DX: G47.33 Obstructive sleep apnea (adult) (pediatric) (principal); G47.34 Idiopathic sleep related nonobstructive alveolar hypoventilation; E66.9 Obesity, unspecified; Z68.30 Body mass index [BMI] 30.0-30.9, adult | CPT/HCPCS: 99212 ==

== ENCOUNTER 2025-01-29 15:31 | Outpatient (REF) | payer OTHER, SELFPAY ==
--- NOTE | ~2025-01-29 | XR_ITS ---
Exam: 2-view bilateral knees Technique: AP standing and lateral view lower extremity joint INDICATION: Right knee pain, bilateral leg pain Prior: 09/14/2023 FINDINGS: RIGHT KNEE: There is a broad-based bony exostosis projecting laterally from the right upper femoral condyle. There is severe narrowing of the medial joint space and mild narrowing of the lateral. There is mild subluxation of the femur medially There are tricompartmental marginal osteophytes. There is a small amount of joint fluid. There are at least 2 possibly 3 ossified bodies in the soft tissues just posterior to the femoral condyles. LEFT KNEE: There is mild medial subluxation of the femur. There is severe narrowing of the medial joint space and mild narrowing of the lateral. There are tricompartmental marginal osteophytes. There is a joint effusion. XR/XR Knee Geremias 1or 2V IMPRESSION: RIGHT KNEE: Severe osteoarthritis. 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 LEFT KNEE: Severe osteoarthritis and joint effusion. Electronically signed by: Nuno Garcia MD 01/29/2025 05:09 PM EDT
== END 2025-01-29 15:32 | disposition home or self-care (01) ==
LOC: HO.XRAY 15:31
PROVIDERS: PCP Internal Medicine; Visit Provider Internal Medicine
DX: H91.93 Unspecified hearing loss, bilateral (principal); M25.561 Pain in right knee; M25.562 Pain in left knee; G89.29 Other chronic pain; I10 Essential (primary) hypertension; Z79.899 Other long term (current) drug therapy; Z13.31 Encounter for screening for depression
CPT/HCPCS: 73560; 96127; 99212

== ENCOUNTER 2025-01-29 15:31 | Outpatient (AMB) | payer OTHER, SELFPAY ==
[2025-01-29 15:48] VITALS: BP 142/70; BMI 31.1
--- NOTE | 2025-01-29 15:48 | A.OFFPC_ITS ---
Vital Signs 01/29/25 15:48 Height 5 ft 4 in Weight 181 lb BMI 31.1 BP 142/70 H Blood Pressure Location Lt brachial Position Sitting Intake Visit Reasons: 6 month f/u Intake Note: Patient here for a 6 month follow up, c/o bilateral leg and knee pain, hearing loss Mend Worker Required: No Accompanied by: Friend Allergies No Known Allergies Allergy (Verified 01/29/25 16:13) Medication List - Last Reconciled 01/29/25 by Isamar White MD amlodipine 5 mg PO DAILY 90 days blood pressure monitor As directed CPAP (CPAP Machine/Device) autoPAP mode 6-20 cmH2O ipratropium bromide 2 sprays intranasal BID 30 days MDD NASAL [employer]GESTION lisinopril 40 mg PO DAILY 90 days nabumetone 750 mg PO BID PRN 90 days Tobacco use date assessed: 10/19/24 Dental Screening Dental Screen Date: 09/27/24 HPI HPI Comments History of Present Illness Details The patient is a 59-year-old male presenting with hypertension management, knee pain, and hearing loss. The patient has a history of hypertension, currently managed with amlodipine 5 mg and lisinopril 40 mg. There is a plan to increase the amlodipine dosage to 10 mg due to inadequate blood pressure control. The patient experiences knee pain that extends from the foot to the back, affecting mobility and causing significant discomfort. The pain is severe enough to limit activities such as climbing and walking, and the patient describes a slow pace of movement. The patient also reports hearing loss in both ears, with difficulty hearing conversations and needing repetition of spoken words. This has led to speaking louder than usual, indicating a possible bilateral hearing impairment. [facility] Medical History (Updated 01/29/25 @ 16:30 by Isamar White MD) Sleep apnea Glaucoma Bilateral cataracts Obesity (BMI 30-39.9) Daytime somnolence Mild recurrent major depression BPH (benign prostatic hyperplasia) Renal calculi Colon polyps History of hypertension Surgical History History of left cataract extraction Hx of umbilical hernia repair H/O colonoscopy H/O lithotripsy Family History Mother Mental health disorder Father Hypertension Dialysis complication Social History Housing: Apartment Alcohol intake: never Patient Tobacco Use Status: Former Tobacco user Tobacco use type: Cigarette e-Cigarette/Vaping Use: Never Used Second Hand Smoke Exposure: No Substance Use Type: Opiates service: No Current occupational status: unemployed Cognitive needs: No Hearing needs: No Vision needs: Yes Questionnaire PHQ-9 Over the last 2 weeks, how often have you been bothered by any of the following problems? 1. Little interest or pleasure in doing things: several days 2. Feeling down, depressed, or hopeless: several days 3. Trouble falling or staying asleep, or sleeping too much: not at all 4. Feeling tired or having little energy: several days 5. Poor appetite or overeating: several days 6. Feeling bad about yourself - or that you are a failure or have let yourself o r your family down: not at all 7. Trouble concentrating on things, such as reading the newspaper or watching television: not at all 8. Moving or speaking so slowly that other people could have noticed. Or the opposite - being so fidgety or restless that you have been moving around a lot more than usual: nearly every day 9. Thoughts that you would be better off or of hurting yourself in some way: not at all Total score: 7 Depression Screening Interpretation: Positive Depression Screening Follow-up: Existing condition and Follow-up Visit Requested Depression Screening Done: Yes 45935 - PHQ-9 Billing: Yes Source: Developed by Drs. Osmin Gong, Raine Sánchez, Serg Mclain and colleagues, with an educational allan from [employer]. Thrive Questionnaire Date Thrive assessed: 01/23/25 I am a: Patient What is your living situation today?: I have a steady place to live Within the past 12 months, did the food you bought not last and you didn't have the money to get more?: Never true Within the past 12 months, did you worry whether your food would run out before you got money to buy more?: Never true Do you have trouble paying for medicines?: No Do you have trouble getting transportation to medical appointments?: No Do you have trouble paying your heating and electricity bill?: No Do you have trouble taking care of your child, family member or friend?: No Do you have trouble with day-to-day activities such as bathing, preparing meals, shopping, managing finances, etc.?: No Are you currently unemployed and looking for a job?: No Are you interested in more education?: No Please select the resources that you would like help with: None Currently or been in a relationship where the following occur: No concerns reported THRIVE Score: 0 AUDIT C Alcohol Use Questionnaire (AUDIT-C) 1. How often do you have a drink containing alcohol?: Never Total Score: 0 Score Reviewed/Action Taken: No JESSICA-7 AMB Questionnaire JESSICA-7 Date JESSICA - 7 assessed: 10/19/24 Feeling nervous, anxious, or on edge: 0 = Not at all Not being able to stop or control worryin = Not at all Worrying too much about different things: 0 = Not at all Trouble relaxin = Not at all Being so restless that it is hard to sit still: 0 = Not at all Becoming easily annoyed or irritable: 0 = Not at all Feeling afraid as if something awful might happen: 0 = Not at all Total JESSICA-7 score (0-4 normal; 5-9 mild; 10-14 moderate; 15-21 severe): 0 Source: Developed by Drs. Osmin Gong, Raine Sánchez, Serg Mclain and colleagues, with an educational allan from [employer]. JESSICA-7 Assessment Billing JESSICA-7 Assessment Tool: JESSICA-7 Assessment 30438 Review of Systems Const All systems reviewed & are unremarkable except as noted in HPI and below Card Denies chest pain at rest, Denies chest pain with activity, Denies edema, Denies irregular heart rhythm, Denies claudication, Denies dyspnea, Denies dyspnea on exertion, Denies orthopnea, Denies paroxysmal nocturnal dyspnea and Denies slow heart rate Resp Denies cough, Denies dyspnea and Denies dyspnea on exertion GI Denies abdominal pain, Denies change in bowel habits, Denies excessive flatus, Denies nausea and Denies vomiting Denies urinary hesitancy, Denies urinary incontinence and Denies urinary urgency Neuro Denies lack of coordination Physical exam (Primary Care) Vital Signs: Last Vital Signs BP 142/70 H 01/29/25 15:48 BMI result Body Mass Index 31.1 BMI Assessment/Plan discussion: High BMI High, discussed plan: lifestyle, weight reduction, dietary and physical activity Tobacco/Smoking Status: Tobacco use Status Tobacco use date assessed 10/19/24 01/29/25 15:57 Patient Tobacco Use Status Former Tobacco user 01/29/25 15:57 Tobacco use type Cigarette 01/29/25 15:57 e-Cigarette/Vaping Use Never Used 01/29/25 15:57 PHQ-9: PHQ-9 Score PHQ-9: Total score 7 01/29/25 15:57 Depression Screening Interpretation: Positive Depression Screening Follow-up: Existing condition and Follow-up Visit Requested Thrive Assessment: Date of Thrive Assessment Date Thrive assessed 01/23/25 01/29/25 15:57 Currently or been in a relationship where the following occur: No concerns reported Resp Effort & Inspection: normal respiratory effort Auscultation: clear to auscultation bilaterally Cardio Jugular venous distension: no JVD Rate: regular rate Rhythm: regular rhythm Heart sounds: S1 normal heart sound present and S2 normal heart sound present Extrem General: Yes full ROM Coding Level of Care Code Est Pt Level 4 (02945) Complex EM visit Add On G2211 Diagnoses Bilateral hearing loss, unspecified hearing loss type H91.93 Hearing loss type: unspecified Laterality: bilateral Chronic pain of right knee M25.561; G89.29 Chronicity: chronic Chronic pain of left knee M25.562; G89.29 Chronicity: chronic Essential hypertension I10 Additional Codes PHQ-9 - 15038 - PHQ-9 Billing: Yes ([id number]) JESSICA-7 Assessment Billing - JESSICA-7 Assessment Tool: JESSICA-7 Assessment 70194 ([id number]) Time Spent (min) 21 Assessment & Plan Assessment & Plan (1) Hearing loss: Code(s): H91.90 - Unspecified hearing loss, unspecified ear Category: Medical Qualifiers: Hearing loss type: unspecified Laterality: bilateral Qualified Code(s): H91.93 - Unspecified hearing loss, bilateral (2) Right knee pain: Code(s): M25.561 - Pain in right knee Category: Medical Qualifiers: Chronicity: chronic Qualified Code(s): M25.561 - Pain in right knee; G89.29 - Other chronic pain (3) Left knee pain: Code(s): M25.562 - Pain in left knee Category: Medical Qualifiers: Chronicity: chronic Qualified Code(s): M25.562 - Pain in left knee; G89.29 - Other chronic pain (4) Essential hypertension: Code(s): I10 - Essential (primary) hypertension Category: Medical Plan The plan includes increasing the dosage of amlodipine to 10 mg to better manage hypertension. The patient will be referred to an home health specialist for further evaluation of knee pain and will undergo imaging studies to assess the condition. An examination of the ears will be conducted to evaluate the reported hearing loss, and further audiological assessment may be considered. Patient was informed and verbally consented to the use of an ambient scribe for clinic note documentation during this visit. Orders: Orders XR knee LT 2V Today M25.562 - Pain in left knee XR knee RT 2V Today M25.561 - Pain in right knee Lipid Panel 6 Months E78.5 - Hyperlipidemia, unspecified Comprehensive [place]. Panel Fast 6 Months I10 - Essential (primary) hypertension Referrals Speech and Hearing Referral H91.90 - Unspecified hearing loss, unspecified ear Orthopedics Referral M25.561 - Pain in right knee, M25.562 - Pain in left knee Medications: New amlodipine 10 mg PO DAILY 90 days 90 tabs 2RF Refilled nabumetone 750 mg PO BID 90 days PRN 180 tabs 0RF pain I10 - Essential (primary) hypertension Discontinued amlodipine Discontinued Reason: Patient Completed Course 5 mg PO DAILY 90 days 90 tabs 1RF Patient Instructions: - Take amlodipine as prescribed, increasing the dose to 10 mg. - Follow up with the home health specialist for knee pain evaluation. - Attend the scheduled ear examination and consider further hearing tests if recommended.
--- OUTSIDE RECORDS SUMMARY | 2025-01-29 18:02 | XMS_ITS | Patient Health Record ---
Author Organization [facility] Address [address] [place] [address] Care Team Providers Care Building Insulation Supervisor Name Role Phone Isamar Diaz Primary Care Provider UnavailScott Andrade Jr Unavailable Allergies No Known Allergies Reason [...] Problem Status W/U Status Risk Notes Problem [id number] Colon cancer screening (Z12.11) Active confirmed Problem [id number] Gastroesophageal reflux disease, unspecified whether esophagitis present (K21.9) Active confirmed Plan Of Treatment Future Test Test Name Order Date COLONOSCOPY 08/26/2022 Insurance Providers Payer Name Payer Address Payer Phone Subscriber Number Group Number Insured Name Patient Relationship to Insured Coverage Start Date Coverage End Date [facility] [address] [address] [place], [place] [id number] VINEET CAGE Self - patient is the insured Medical (General) History Medical History History ICD Code Nephrolithiasis hypertension BPH GERD Colon polyps Depression Surgical History Surgery Date(Month/Year) Multiple cystoscopies/ESWLs for nephroli thiasis
== END 2025-01-29 16:27 | disposition home or self-care (01) ==
LOC: HO.HMCH 15:32
PROVIDERS: PCP Internal Medicine; Visit Provider Internal Medicine
DX: H91.93 Unspecified hearing loss, bilateral (principal); M25.561 Pain in right knee; G89.29 Other chronic pain; M25.562 Pain in left knee; I10 Essential (primary) hypertension

== ENCOUNTER → 2025-01-29 16:39 | Outpatient (BNV) | payer OTHER, SELFPAY | PROVIDERS: PCP Internal Medicine; Visit Provider Radiology Diagnostic Radiology | DX: M17.0 Bilateral primary osteoarthritis of knee (principal) | CPT/HCPCS: 73560 ==

== ENCOUNTER 2025-03-04 12:33 | Outpatient (REF) | payer OTHER, SELFPAY ==
--- OUTSIDE RECORDS SUMMARY | 2025-03-04 13:17 | XMS_ITS | Patient Health Record ---
Author Organization [facility] Address [address] [place] [address] Care Team Providers Care Stuffing Machine Operator Name Role Phone Isamar Diaz Primary Care Provider Unavailab Sctot Shaffer Jr Unavailable [phone] Allergies No Known Allergies Reason For Referral [...] Problem Status W/U Status Risk Notes Problem [id number] Colon cancer screening (Z12.11) Active confirmed Problem [id number] Gastroesophageal reflux disease, unspecified whether esophagitis present (K21.9) Active confirmed Plan Of Treatment Future Test Test Name Order Date COLONOSCOPY 08/26/2022 Insurance Providers Payer Name Payer Address Payer Phone Subscriber Number Group Number Insured Name Patient Relationship to Insured Coverage Start Date Coverage End Date [facility] [address] [address] [place], [place] [id number] VINEET CAGE Self - patient is the insured Medical (General) History Medical History History ICD Code Nephrolithiasis hypertension BPH GERD Colon polyps Depression Surgical History Surgery Date(Month/Year) Multiple cystoscopies/ESWLs for nephroli thiasis
== END 2025-03-04 12:34 | disposition home or self-care (01) ==
LOC: HO.SH 12:33
PROVIDERS: Visit Provider Internal Medicine
DX: Z01.118 Encounter for examination of ears and hearing with other abnormal findings (principal); H90.3 Sensorineural hearing loss, bilateral
CPT/HCPCS: 92557; 92567

== ENCOUNTER 2025-03-06 11:38 | Outpatient (AMB) | payer OTHER, SELFPAY ==
--- NOTE | 2025-03-06 11:41 | A.OFFVIS_ITS ---
Vital Signs 03/06/25 11:46 Height 5 ft 4 in Weight 180 lb BMI 30.9 Intake Visit Reasons: OV-Pain in both knees Intake Note: Ziggy is a 59 year old male who presents with complaints of progressively worsening bilateral knee pains. He describes his pains as sharp and severe in nature. His pains have gotten worse over the last few years in spite of continued non operative treatments. He has failed the last 3 months of conservative treatment which has included Tylenol, anti-inflammatory medicines, a home exercise program and physical therapy exercises. The patient has had cortisone injections in the past which gave him no relief. At this point his bilateral knee pains are interfering with his activities of daily living and his ability to sleep well through the night. Allergies No Known Allergies Allergy (Verified 03/06/25 11:46) Medication List - Last Reconciled 03/06/25 by Michael Mae MD amlodipine 10 mg PO DAILY 90 days blood pressure monitor As directed CPAP (CPAP Machine/Device) autoPAP mode 6-20 cmH2O ipratropium bromide 2 sprays intranasal BID lisinopril 40 mg PO DAILY 90 days nabumetone 750 mg PO BID PRN 90 days [facility] Medical History Sleep apnea Glaucoma Bilateral cataracts Obesity (BMI 30-39.9) Daytime somnolence Mild recurrent major depression BPH (benign prostatic hyperplasia) Renal calculi Colon polyps History of hypertension Surgical History History of left cataract extraction Hx of umbilical hernia repair H/O colonoscopy H/O lithotripsy Family History Mother Mental health disorder Father Hypertension Dialysis complication Social History Housing: Apartment Alcohol intake: never Patient Tobacco Use Status: Former Tobacco user Tobacco use type: Cigarette e-Cigarette/Vaping Use: Never Used Second Hand Smoke Exposure: No Substance Use Type: Opiates service: No Current occupational status: unemployed Cognitive needs: No Hearing needs: No Vision needs: Yes Physical Exam Vital Signs: BMI result Body Mass Index 30.9 Const Other: Well-nourished well-developed very friendly male awake alert and oriented x3 in no acute distress Extrem Other: Bilateral knee examination shows minimal effusions, palpable crepitus with range of motion, pain with range of motion, no instability Results Reviewed Results Reviewed: X-rays of the patient's bilateral knees taken previously show joint space narrowing, subchondral sclerosis, no acute bony abnormalities Assessment & Plan Assessment & Plan (1) Osteoarthritis of left knee: Code(s): M17.12 - Unilateral primary osteoarthritis, left knee Category: Medical (2) Osteoarthritis of right knee: Code(s): M17.11 - Unilateral primary osteoarthritis, right knee Category: Medical Plan Ms. Manuel presents with bilateral knee pains due to osteoarthritis. I had a lengthy discussion with the patient regarding the treatment options. He wishes to hold off on surgery for as long as possible. I agree with this plan. I will see if the patient's insurance company will cover a viscosupplementation injection, such as Durolane, for both of his knees. I will see him back once the injections are available. Feel free to call me at any time should questions regarding his orthopedic management arise. I spent 22 minutes in reviewing the patient's records and imaging studies, seeing the patient and documenting in the medical record. Coding Level of Care Code Est Pt Level 3 (00338) Complex EM visit Add On G2211 Diagnoses Osteoarthritis of left knee M17.12 Osteoarthritis of right knee M17.11
[2025-03-06 11:46] VITALS: BMI 30.9
--- OUTSIDE RECORDS SUMMARY | 2025-03-06 12:32 | XMS_ITS | Patient Health Record ---
Author Organization [facility] Address [address] [place] [address] Care Team Providers Care Ebay Reseller Name Role Phone Isamar Diaz Primary Care [...] Problem Status W/U Status Risk Notes Problem [id number] Colon cancer screening (Z12.11) Active confirmed Problem 015077431 Gastroesophageal reflux disease, unspecified whether esophagitis present (K21.9) Active confirmed Plan Of Treatment Future Test Test Name Order Date COLONOSCOPY 08/26/2022 Insurance Providers Payer Name Payer Address Payer Phone Subscriber Number Group Number Insured Name Patient Relationship to Insured Coverage Start Date Coverage End Date [facility] [address] [address] [place], [place] [id number] VINEET CAGE Self - patient is the insured Medical (General) History Medical History History ICD Code Nephrolithiasis hypertension BPH GERD Colon polyps Depression Surgical History Surgery Date(Month/Year) Multiple cystoscopies/ESWLs for nephroli thiasis
== END 2025-03-06 12:01 | disposition home or self-care (01) ==
LOC: HO.HOS 11:38
PROVIDERS: PCP Internal Medicine; Visit Provider Orthopaedic Surgery
DX: M17.0 Bilateral primary osteoarthritis of knee (principal)
CPT/HCPCS: 99213; G2211

== ENCOUNTER → 2025-03-06 11:38 | Outpatient (BNVA) | payer OTHER, SELFPAY | PROVIDERS: PCP Internal Medicine; Visit Provider Orthopaedic Surgery | DX: M17.0 Bilateral primary osteoarthritis of knee (principal) | CPT/HCPCS: 99212 ==

== ENCOUNTER 2025-04-17 12:30 | Outpatient (AMB) | payer OTHER, SELFPAY ==
--- NOTE | 2025-04-17 12:34 | A.OFFVIS_ITS ---
Vital Signs 04/17/25 12:35 Height 5 ft 4 in Weight 180 lb BMI 30.9 Intake Visit Reasons: Inj- Geremias Knee Euflexxa #1 Intake Note: Ziggy is a 59 year old male who presents today for Bilateral Knee Euflexxa Injection #1. He describes his knee pains as sharp in nature. He has had cortisone injections in the past which gave him minimal relief. He has failed the last 3 months of conservative treatment. Wishes to hold off on surgery if at all possible. Allergies No Known Allergies Allergy (Verified 04/17/25 12:38) Medication List - Last Reconciled 04/17/25 by Michael Mae MD amlodipine 10 mg PO DAILY 90 days blood pressure monitor As directed CPAP (CPAP Machine/Device) autoPAP mode 6-20 cmH2O ipratropium bromide 2 sprays intranasal BID lisinopril 40 mg PO DAILY 90 days nabumetone 750 mg PO BID PRN 90 days PFSH Medical History Sleep apnea Glaucoma Bilateral cataracts Obesity (BMI 30-39.9) Daytime somnolence Mild recurrent major depression BPH (benign prostatic hyperplasia) Renal calculi Colon polyps History of hypertension Surgical History History of left cataract extraction Hx of umbilical hernia repair H/O colonoscopy H/O lithotripsy Family History Mother Mental health disorder Father Hypertension Dialysis complication Social History Housing: Apartment Alcohol intake: never Patient Tobacco Use Status: Former Tobacco user Tobacco use type: Cigarette e-Cigarette/Vaping Use: Never Used Second Hand Smoke Exposure: No Substance Use Type: Opiates service: No Current occupational status: unemployed Cognitive needs: No Hearing needs: No Vision needs: Yes Physical Exam Vital Signs: BMI result Body Mass Index 30.9 Const Other: Well-nourished well-developed very friendly male awake alert and oriented x3 in no acute distress Extrem Other: Bilateral knee examination shows minimal effusions, palpable crepitus with range of motion, pain with range of motion, no instability Office Procedures AMB Joint Injection/Aspiration Joint Injection/Aspiration Primary Site: right knee Prep: site was prepped using aseptic technique Injected: 20 mg of (Euflexxa viscosupplementation) and 1% plain lidocaine Procedure: The patient tolerated the procedure well Coding 52850 - Large joint Procedure code (CPT) selection complete AMB Joint Injection/Aspiration Joint Injection/Aspiration Primary Site: left knee Prep: site was prepped using aseptic technique Injected: 20 mg of (Euflexxa viscosupplementation) and 1% plain lidocaine Procedure: The patient tolerated the procedure well Coding 17438 - Large joint Procedure code (CPT) selection complete Results Reviewed Results Reviewed: X-rays of the patient's bilateral knees taken previously show joint space narrowing, subchondral sclerosis, no acute bony abnormalities Assessment & Plan Assessment & Plan (1) Osteoarthritis of left knee: Code(s): M17.12 - Unilateral primary osteoarthritis, left knee Category: Medical (2) Osteoarthritis of right knee: Code(s): M17.11 - Unilateral primary osteoarthritis, right knee Category: Medical Plan Mr. Manuel presents with bilateral knee pains due to osteoarthritis. The risks and benefits of a series of bilateral knee Euflexxa viscosupplementation i njections were discussed at length with the patient. The patient wished to proceed. He tolerated the 1st set of injections well. He will continue with his activity modifications. He will follow up next week as scheduled. Feel free to call me at any time should questions regarding his orthopedic management arise. I spent 21 minutes in reviewing the patient's records and imaging studies, glenys g the patient and documenting in the medical record. Orders: Orders AMB Joint Injection/Aspiration Today M17.12 - Unilateral primary osteoarthritis, left knee AMB Joint Injection/Aspiration Today M17.11 - Unilateral primary osteoarthritis, right knee Coding Level of Care Code Est Pt Level 3 (31541) Complex EM visit Add On G2211 Diagnoses Osteoarthritis of left knee M17.12 Osteoarthritis of right knee M17.11 CPT Codes Coding - 98649 Large joint: 61068 - Large joint ([id number]) Coding - 78918 Large joint: 68607 - Large joint ([id number])
[2025-04-17 12:35] VITALS: BMI 30.9
--- OUTSIDE RECORDS SUMMARY | 2025-04-17 14:59 | XMS_ITS | Patient Health Record ---
Author Organization [facility] Address [address] [place] [address] Care Team Providers Care Technology Architect Name Role Phone Isamar Diaz Primary Care [...] Problem Status W/U Status Risk Notes Problem [id number] Colon cancer screening (Z12.11) Active confirmed Problem 246491938 Gastroesophageal reflux disease, unspecified whether esophagitis present (K21.9) Active confirmed Plan Of Treatment Future Test Test Name Order Date COLONOSCOPY 08/26/2022 Insurance Providers Payer Name Payer Address Payer Phone Subscriber Number Group Number Insured Name Patient Relationship to Insured Coverage Start Date Coverage End Date [facility] [address] [address] [place], [place] [id number] VINEET CAGE Self - patient is the insured Medical (General) History Medical History History ICD Code Nephrolithiasis hypertension BPH GERD Colon polyps Depression Surgical History Surgery Date(Month/Year) Multiple cystoscopies/ESWLs for nephroli thiasis
== END 2025-04-17 12:57 | disposition home or self-care (01) ==
LOC: HO.HOS 12:30
PROVIDERS: PCP Internal Medicine; Visit Provider Orthopaedic Surgery
DX: M17.0 Bilateral primary osteoarthritis of knee (principal)
CPT/HCPCS: 20610; 99213

== ENCOUNTER → 2025-04-17 12:30 | Outpatient (BNVA) | payer OTHER, SELFPAY | PROVIDERS: PCP Internal Medicine; Visit Provider Orthopaedic Surgery | DX: M17.12 Unilateral primary osteoarthritis, left knee (principal); M17.11 Unilateral primary osteoarthritis, right knee | CPT/HCPCS: 20610; 99212; J2003; J7323 ==

== ENCOUNTER 2025-04-24 11:11 | Outpatient (AMB) | payer OTHER, SELFPAY ==
--- NOTE | 2025-04-24 11:15 | A.OFFVIS_ITS ---
Vital Signs 04/24/25 11:19 Height 5 ft 4 in Weight 180 lb BMI 30.9 Intake Visit Reasons: Inj- Geremias Knee Euflexxa #2 Intake Note: Ziggy is a 59 year old male who presents today for an injection in his bilateral Knee, Euflexxa #2. Patient states that the last injection did give him relief. He continues with his home exercise program. Allergies No Known Allergies Allergy (Verified 04/24/25 11:19) Medication List - Last Reconciled 04/24/25 by Michael Mae MD amlodipine 10 mg PO DAILY 90 days blood pressure monitor As directed CPAP (CPAP Machine/Device) autoPAP mode 6-20 cmH2O ipratropium bromide 2 sprays intranasal BID lisinopril 40 mg PO DAILY 90 days nabumetone 750 mg PO BID PRN 90 days PFSH Medical History Sleep apnea Glaucoma Bilateral cataracts Obesity (BMI 30-39.9) Daytime somnolence Mild recurrent major depression BPH (benign prostatic hyperplasia) Renal calculi Colon polyps History of hypertension Surgical History History of left cataract extraction Hx of umbilical hernia repair H/O colonoscopy H/O lithotripsy Family History Mother Mental health disorder Father Hypertension Dialysis complication Social History Housing: Apartment Alcohol intake: never Patient Tobacco Use Status: Former Tobacco user Tobacco use type: Cigarette e-Cigarette/Vaping Use: Never Used Second Hand Smoke Exposure: No Substance Use Type: Opiates service: No Current occupational status: unemployed Cognitive needs: No Hearing needs: No Vision needs: Yes Physical Exam Vital Signs: BMI result Body Mass Index 30.9 Extrem Other: Bilateral knee examination shows minimal effusions, palpable crepitus with range of motion, pain with range of motion, no instability Office Procedures AMB Joint Injection/Aspiration Joint Injection/Aspiration Primary Site: left knee Prep: site was prepped using aseptic technique Injected: 20 mg of (Euflexxa viscosupplementation) and 1% plain lidocaine Procedure: The patient tolerated the procedure well Coding - Large joint Procedure code (CPT) selection complete AMB Joint Injection/Aspiration Joint Injection/Aspiration Primary Site: right knee Prep: site was prepped using aseptic technique Injected: 20 mg of (Euflexxa viscosupplementation) and 1% plain lidocaine Procedure: The patient tolerated the procedure well Coding - Large joint Procedure code (CPT) selection complete Assessment & Plan Assessment & Plan (1) Osteoarthritis of left knee: Code(s): M17.12 - Unilateral primary osteoarthritis, left knee Category: Medical (2) Osteoarthritis of right knee: Code(s): M17.11 - Unilateral primary osteoarthritis, right knee Category: Medical Plan Mr. Manuel presents with bilateral knee pains due to osteoarthritis. The risks and benefits of a 2nd set of Euflexxa viscosupplementation injections were discussed at length with the patient. The patient wished to proceed. He tolerated the injections well. He will continue with his home exercise program. He will contact me prior to his follow-up appointment next weeks should any questions or concerns arise. Feel free to call me at any time should questions regarding his orthopedic management arise. Orders: Orders AMB Joint Injection/Aspiration Today M17.12 - Unilateral primary osteo arthritis, left knee AMB Joint Injection/Aspiration Today M17.11 - Unilateral primary osteoarthritis, right knee Coding Level of Care Code Procedure Only Diagnoses Osteoarthritis of left knee M17.12 Osteoarthritis of right knee M17.11 CPT Codes Coding - Large joint: 48838 - Large joint ([id number]) Coding - 93033 Large joint: 83174 - Large joint ([id number])
[2025-04-24 11:19] VITALS: BMI 30.9
--- OUTSIDE RECORDS SUMMARY | 2025-04-24 14:22 | XMS_ITS | Patient Health Record ---
Author Organization [facility] Address [address] [place] [address] Care Team Providers Care Architecture Manager Name Role Phone Isamar Diaz Primary Care [...] Problem Status W/U Status Risk Notes Problem [id number] Colon cancer screening (Z12.11) Active confirmed Problem [id number] Gastroesophageal reflux disease, unspecified whether esophagitis present (K21.9) Active confirmed Plan Of Treatment Future Test Test Name Order Date COLONOSCOPY 08/26/2022 Insurance Providers Payer Name Payer Address Payer Phone Subscriber Number Group Number Insured Name Patient Relationship to Insured Coverage Start Date Coverage End Date [facility] [address] [address] [place], [place] [id number] VINEET CAGE Self - patient is the insured Medical (General) History Medical History History ICD Code Nephrolithiasis hypertension BPH GERD Colon polyps Depression Surgical History Surgery Date(Month/Year) Multiple cystoscopies/ESWLs for nephroli thiasis
== END 2025-04-24 11:51 | disposition home or self-care (01) ==
LOC: HO.HOS 11:11
PROVIDERS: PCP Internal Medicine; Visit Provider Orthopaedic Surgery
DX: M17.0 Bilateral primary osteoarthritis of knee (principal)
CPT/HCPCS: 20610

== ENCOUNTER → 2025-04-24 11:11 | Outpatient (BNVA) | payer OTHER, SELFPAY | PROVIDERS: PCP Internal Medicine; Visit Provider Orthopaedic Surgery | DX: M17.0 Bilateral primary osteoarthritis of knee (principal) | CPT/HCPCS: 20610; J2003; J7323 ==

== ENCOUNTER 2025-05-01 08:23 | Outpatient (REF) | payer OTHER, SELFPAY ==
--- NOTE | ~2025-05-01 | XR_ITS ---
Exam: 2 view bilateral shoulders TECHNIQUE: AP and scapular Y view upper extremity joints, bilateral shoulders INDICATION: Shoulder pain No prior Fines: Right shoulder: Small marginal osteophytes are noted at the AC joint. There is no AC joint separation. There is a small enthesophyte at the greater tuberosity. Glenohumeral joint is intact and not degenerated otherwise. Left shoulder: Minimal degenerative changes noted AC joint. There is no AC joint separation. Glenohumeral joint is not dislocated. No other abnormalities are seen. XR/XR Shoulder Geremias min 2V IMPRESSION: Mild to moderate right and mild left AC joint arthropathy. Electronically signed by: Nuno Garcia MD 05/01/2025 10:53 AM EDT
--- OUTSIDE RECORDS SUMMARY | 2025-05-02 09:25 | XMS_ITS | Patient Health Record ---
Author Organization [facility] Address [address] [place] [address] Care Team Providers Care Counsellors Name Role Phone Isamar Diaz Primary Care [...] Problem Status W/U Status Risk Notes Problem [id number] Colon cancer screening (Z12.11) Active confirmed Problem 870736260 Gastroesophageal reflux disease, unspecified whether esophagitis present (K21.9) Active confirmed Plan Of Treatment Future Test Test Name Order Date COLONOSCOPY 08/26/2022 Insurance Providers Payer Name Payer Address Payer Phone Subscriber Number Group Number Insured Name Patient Relationship to Insured Coverage Start Date Coverage End Date [facility] [address] [address] [place], [place] [id number] VINEET CAGE Self - patient is the insured Medical (General) History Medical History History ICD Code Nephrolithiasis hypertension BPH GERD Colon polyps Depression Surgical History Surgery Date(Month/Year) Multiple cystoscopies/ESWLs for nephroli thiasis
== END 2025-05-01 08:24 | disposition home or self-care (01) ==
LOC: HO.HOSX 08:23
PROVIDERS: Visit Provider Orthopaedic Surgery
DX: M17.0 Bilateral primary osteoarthritis of knee (principal); M25.311 Other instability, right shoulder; Z79.899 Other long term (current) drug therapy
CPT/HCPCS: 20610; 73030; 99212; J2003; J7323

== ENCOUNTER 2025-05-01 10:39 | Outpatient (AMB) | payer OTHER, SELFPAY ==
--- NOTE | 2025-05-01 10:41 | A.OFFVIS_ITS ---
Intake Visit Reasons: Inj- Geremias Knee Euflexxa #3, Bilateral shoulder pain Intake Note: Ziggy is a 59 year old male who presents with complaints of progressively worsening bilateral shoulder pains and weakness, right greater than left. He also has intermittent discomfort in both of his knees. He states that he has gotten fairly good relief from the 1st 2 sets of Euflexxa injections given into both of his knees. He describes his shoulder pains as sharp in nature. His right shoulder pain and weakness have gotten worse over the last year in spite of continued non operative treatments. He has failed the last 6 weeks of conservative treatment which has included Tylenol, anti-inflammatory medicines, physical therapy exercises and a home exercise program. The patient has had cortisone injections in the past which gave him minimal relief. He reports difficulty lifting his right hand above shoulder height. Allergies No Known Allergies Allergy (Verified 05/01/25 10:50) Medication List - Last Reconciled 05/01/25 by Michael Mea MD amlodipine 10 mg PO DAILY 90 days blood pressure monitor As directed CPAP (CPAP Machine/Device) autoPAP mode 6-20 cmH2O ipratropium bromide 2 sprays intranasal BID lisinopril 40 mg PO DAILY 90 days nabumetone 750 mg PO BID PRN 90 days PFSH Medical History Sleep apnea Glaucoma Bilateral cataracts Obesity (BMI 30-39.9) Daytime somnolence Mild recurrent major depression BPH (benign prostatic hyperplasia) Renal calculi Colon polyps History of hypertension Surgical History History of left cataract extraction Hx of umbilical hernia repair H/O colonoscopy H/O lithotripsy Family History Mother Mental health disorder Father Hypertension Dialysis complication Social History Housing: Apartment Alcohol intake: never Patient Tobacco Use Status: Former Tobacco user Tobacco use type: Cigarette e-Cigarette/Vaping Use: Never Used Second Hand Smoke Exposure: No Substance Use Type: Opiates service: No Current occupational status: unemployed Cognitive needs: No Hearing needs: No Vision needs: Yes Physical Exam Const Other: Well-nourished well-developed very friendly male awake alert and oriented x3 in no acute distress Extrem Other: Right shoulder examination shows decreased range of motion when compared to his left shoulder, 4+ out of 5 strength with supraspinatus testing, positive impingement signs, tenderness over his acromioclavicular joint, no instability Bilateral knee examination shows minimal effusions, palpable crepitus with range of motion, pain with range of motion, no instability Office Procedures AMB Joint Injection/Aspiration Joint Injection/Aspiration Primary Site: left knee Prep: site was prepped using aseptic technique Injected: 20 mg of (Euflexxa viscosupplementation) and 1% plain lidocaine Procedure: The patient tolerated the procedure well Coding 51707 - Large joint Procedure code (CPT) selection complete AMB Joint Injection/Aspiration Joint Injection/Aspiration Primary Site: right knee Prep: site was prepped using aseptic technique Injected: 20 mg of (Euflexxa viscosupplementation) and 1% plain lidocaine Procedure: The patient tolerated the procedure well Coding 00237 - Large joint Procedure code (CPT) selection complete Results Reviewed Results Reviewed: X-rays of the patient's bilateral shoulders taken today show severe acromioclavicular joint narrowing, type 2 acromion, no acute bony abnormalities Assessment & Plan Assessment & Plan (1) Bilateral shoulder pain: Code(s): M25.511 - Pain in right shoulder; M25.512 - Pain in left shoulder Category: Medical (2) Rotator cuff insufficiency of right shoulder: Code(s): M25.311 - Other instability, right shoulder Category: Medical (3) Osteoarthritis of left knee: Code(s): M17.12 - Unilateral primary osteoarthritis, left knee Category: Medical (4) Osteoarthritis of right knee: Code(s): M17.11 - Unilateral primary osteoarthritis, right knee Category: Medical Plan Mr. Manuel presents with bilateral knee pains due to osteoarthritis. The risks and benefits of a 3rd set of Euflexxa viscosupplementation injections were discussed at length with the patient. The patient wished to proceed. Tolerated the bilateral knee injections well. The patient also has right shoulder pain and weakness due to impingement syndrome and possible rotator cuff tearing. Thus, I will send the patient for an MRI of his right shoulder for further evaluation. I will see him back once the MRI is completed to discuss the findings and treatment options. Feel free to call me at any time should herber hutton regarding his orthopedic management arise. I spent 21 minutes in reviewing the patient's records and imaging studies, seeing the patient and documenting in the medical record. Orders: Orders AMB Joint Injection/Aspiration Today M17.12 - Unilateral primary osteoarthritis, left knee AMB Joint Injection/Aspiration Today M17.11 - Unilateral primary osteoarthritis, right knee XR Shoulder Geremias min 2V Today M25.511 - Pain in right shoulder, M25.512 - Pain in left shoulder MR shoulder RT wo con 05/02/25 M25.311 - Other instability, right shoulder Coding Level of Care Code Est Pt Level 3 (42114) Complex EM visit Add On G2211 Diagnoses Bilateral shoulder pain M25.511; M25.512 Rotator cuff insufficiency of right shoulder M25.311 Osteoarthritis of left knee M17.12 Osteoarthritis of right knee M17.11 CPT Codes Coding - 69121 Large joint: 59689 - Large joint ([id number]) Coding - 04331 Large joint: 41057 - Large joint ([id number])
--- OUTSIDE RECORDS SUMMARY | 2025-05-01 13:12 | XMS_ITS | Patient Health Record ---
Author Organization [facility] Address [address] [place] [address] Care Team Providers Care Eye Dropper Assembler Name Role Phone Isamar Diaz Primary Care [...] Problem Status W/U Status Risk Notes Problem [id number] Colon cancer screening (Z12.11) Active confirmed Problem [id number] Gastroesophageal reflux disease, unspecified whether esophagitis present (K21.9) Active confirmed Plan Of Treatment Future Test Test Name Order Date COLONOSCOPY 08/26/2022 Insurance Providers Payer Name Payer Address Payer Phone Subscriber Number Group Number Insured Name Patient Relationship to Insured Coverage Start Date Coverage End Date [facility] [address] [address] [place], [place] [id number] VINEET CAGE Self - patient is the insured Medical (General) History Medical History History ICD Code Nephrolithiasis hypertension BPH GERD Colon polyps Depression Surgical History Surgery Date(Month/Year) Multiple cystoscopies/ESWLs for nephroli thiasis
== END 2025-05-01 11:07 | disposition home or self-care (01) ==
LOC: HO.HOS 10:40
PROVIDERS: PCP Internal Medicine; Visit Provider Orthopaedic Surgery
DX: M25.511 Pain in right shoulder (principal); M25.512 Pain in left shoulder; M25.311 Other instability, right shoulder; M17.0 Bilateral primary osteoarthritis of knee
CPT/HCPCS: 20610; 99213

== ENCOUNTER → 2025-05-01 10:42 | Outpatient (BNV) | payer OTHER, SELFPAY | PROVIDERS: Visit Provider Radiology Diagnostic Radiology | DX: M19.011 Primary osteoarthritis, right shoulder (principal) | CPT/HCPCS: 73030 ==

== ENCOUNTER 2025-05-22 18:38 | Outpatient (REF) | payer OTHER, SELFPAY ==
--- NOTE | ~2025-05-22 | MR_ITS ---
EXAMINATION: MR SHOULDER WITHOUT CONTRAST, RIGHT CLINICAL INFORMATION: Instability. Patient reports pain, decreased range of motion COMPARISON: None available. TECHNIQUE: MRI of the shoulder without contrast was performed on a high-field scanner. FINDINGS: ROTATOR CUFF: Supraspinatus: High-grade bursal and articular surface tearing measuring 2.2 x 1.8 cm. Mild tendinosis of the intact fibers. Infraspinatus: Mild tendinosis Teres minor: Intact Subscapularis: Mild tendinosis No muscle atrophy or fatty infiltration. BICEPS: Mild proximal biceps tendinosis. CORACOACROMIAL ARCH: The undersurface of the acromion is curved with no subacromial spur. Moderate acromioclavicular arthritis. Small fluid in the subacromial subdeltoid space. LABRUM/CAPSULE: No displaced labral tear. GLENOHUMERAL JOINT/MARROW: No fracture. Degenerative-appearing subcortical cysts in the posterior humeral head. No aggressive marrow replacing lesion. No significant effusion. No axillary lymphadenopathy. MR/MR shoulder RT wo con IMPRESSION: 1. Supraspinatus high-grade tearing measuring 2.2 x 1.8 cm. Mild tendinosis. 2. Mild infraspinatus and subscapularis tendinosis. 3. Mild proximal biceps tendinosis. 4. Moderate acromioclavicular arthritis. Electronically signed by: José Manuel Urena MD 05/23/2025 09:15 AM EDT
== END 2025-05-22 18:39 | disposition home or self-care (01) ==
LOC: HO.MRI 18:38
PROVIDERS: PCP Internal Medicine; Visit Provider Orthopaedic Surgery
DX: M25.311 Other instability, right shoulder (principal)
CPT/HCPCS: 73221

== ENCOUNTER → 2025-05-22 18:38 | Outpatient (BNV) | payer OTHER, SELFPAY | PROVIDERS: PCP Internal Medicine; Visit Provider Radiology Diagnostic Ultrasound | DX: S46.011A Strain of muscle(s) and tendon(s) of the rotator cuff of right shoulder, initial encounter (principal); M19.011 Primary osteoarthritis, right shoulder | CPT/HCPCS: 73221 ==

== ENCOUNTER 2025-06-11 07:48 | Outpatient (REF) | payer OTHER, SELFPAY ==
--- OUTSIDE RECORDS SUMMARY | 2025-06-11 07:53 | XMS_ITS | Patient Health Record ---
Author Organization [facility] Address [address] [place] [address] Care Team Providers Care Filling Carrier Name Role Phone Isamar Diaz Primary Care Provider UnavailScott Andrade Jr Unavailable [phone] Allergies No Known Allergies Reason For Referral No Information Medications Medication SIG (Take, Route, Frequency, Duration) Notes Start Date End Date Status MiraLax (colon prep) 17 GM/SCOOP mixed with Gatorade or Crystal Light Orally begin at 5:00 p.m. the day before the procedure; Duration: 1 day 08/26/2022 Active Tamsulosin HCl 0.4 MG TAKE 1 CAPSULE BY MOUTH AT BEDTIME Oral; Duration: 90 Active Lisinopril 20 MG 1 tablet Orally Once a day 08/26/2022 Active Multivitamin - 1 tablet Orally Once a day; Duration: 30 day(s) Active Omeprazole 20 MG 1 capsule 30 minutes before morning meal Orally Once a day; Duration: 30 day(s) prn Active buPROPion HCl 150 [...] Problem Status W/U Status Risk Notes Problem Colon cancer screening (854337100) Colon cancer screening (Z12.11) Active confirmed Problem Gastroesophageal reflux disease (274350602) Gastroesophageal reflux disease, unspecified whether esophagitis present (K21.9) Active confirmed Plan Of Treatment Future Test Test Name Order Date COLONOSCOPY 08/26/2022 Insurance Providers Payer Name Payer Address Payer Phone Subscriber Number Group Number Insured Name Patient Relationship to Insured Coverage Start Date Coverage End Date [facility] [address] [address] [place], [place] [id number] VINEET CAGE Self - patient is the insured Medical (General) History Medical History History ICD Code Nephrolithiasis hypertension BPH GERD Colon polyps Depression Surgical History Surgery Date(Month/Year) Multiple cystoscopies/ESWLs for nephroli thiasis
--- NOTE | 2025-06-11 08:08 | MHC.AU.HA1 ---
Hearing Aid Evaluation Date of Visit: 06/11/25 Historical Information: Description of Hearing: Borderline normal sloping to moderate sensorineural hearing loss, bilaterally Summary: Ready to pursue amplification to help ease some communication difficulties. Noted elevated television volume and not always fully understanding conversations. Discussed options including manufacturers and styles. Opted for rechargeable RITE compatible with Android phone. Hearing Aid Prescription: Based on the individual?s shared listening needs, communication environments, dexterity, desire for connectivity, and personal preferences, the following prescription for amplification has been made: Right ear: Make, Model, Color: Phonak Audeo I70-R Color: Silver Ruiz Battery Size: Rechargeable Glass Robot Operator/Slim Tube: 1M Type of Earmold/Dome/CShell/SlimTip: Medium vented dome Left ear: Left ear prescription to be same as Right Hearing Aid above: Make, Model, Color: Phonak Audeo I70-R Color: Silver Ruiz Battery Size: Rechargeable Glass Robot Operator/Slim Tube: 1M Type of Earmold/Dome/CShell/SlimTip: Medium vented dome Accessories/Assistive Technology: Lpn Per Diem Plan of Care: Patient wishes to purchase hearing aids as prescribed Action Taken/Action Needed: Hearing Instrument Fitting to be scheduled when materials arrive Primary Diagnosis: H90.3 Bilateral Sensorineural Hearing Loss Signature: Provider: Gallito Morse, [facility]
== END 2025-06-11 07:49 | disposition home or self-care (01) ==
LOC: HO.HAP 07:48
PROVIDERS: Visit Provider Internal Medicine
DX: Z46.1 Encounter for fitting and adjustment of hearing aid (principal); H90.3 Sensorineural hearing loss, bilateral
CPT/HCPCS: 92591

== ENCOUNTER 2025-06-12 10:37 | Outpatient (AMB) | payer OTHER, SELFPAY ==
--- NOTE | 2025-06-12 10:44 | MHC.OFFVIS ---
Intake Visit Reasons: Right shoulder pain and weakness Intake Note: Ziggy is a 59 year old male who presents with complaints of progressively worsening right shoulder pain and weakness. The patient describes his pain as sharp in nature. Most of the pain is along the lateral aspect of his right shoulder. His symptoms have gotten worse over the last year in spite of continued non operative treatments. He has tried Tylenol and anti-inflammatory medicines which gave him minimal relief. He has also done physical therapy which aggravated his pain. At this point his right shoulder pain and weakness or interfering with his activities of daily living and his ability to sleep well through the night. The patient reports weakness when lifting his right hand above shoulder height. Allergies No Known Allergies Allergy (Verified 05/01/25 10:50) Medication List - Last Reconciled 06/12/25 by Michael Mae MD amlodipine 10 mg PO DAILY 90 days blood pressure monitor As directed CPAP (CPAP Machine/Device) autoPAP mode 6-20 cmH2O ipratropium bromide 2 sprays intranasal BID lisinopril 40 mg PO DAILY 90 days nabumetone 750 mg PO BID PRN 90 days [facility] Medical History Sleep apnea Glaucoma Bilateral cataracts Obesity (BMI 30-39.9) Daytime somnolence Mild recurrent major depression BPH (benign prostatic hyperplasia) Renal calculi Colon polyps History of hypertension Surgical History History of left cataract extraction Hx of umbilical hernia repair H/O colonoscopy H/O lithotripsy Family History Mother Mental health disorder Father Hypertension Dialysis complication Social History Housing: Apartment Alcohol intake: never Patient Tobacco Use Status: Former Tobacco user Tobacco use type: Cigarette e-Cigarette/Vaping Use: Never Used Second Hand Smoke Exposure: No Substance Use Type: Opiates service: No Current occupational status: unemployed Cognitive needs: No Hearing needs: No Vision needs: Yes Physical Exam Const Other: Well-nourished well-developed very friendly male awake alert and oriented x3 in no acute distress Extrem Other: Right shoulder examination shows slightly decreased range of motion when compared to his left shoulder, 4/5 strength with supraspinatus testing, positive impingement signs, tenderness over his acromioclavicular joint, no instability Results Reviewed Results Reviewed: MRI of the patient's right shoulder show severe acromioclavicular joint narrowing, a type 2 acromion, a full-thickness tear of the supraspinatus tendon Assessment & Plan Assessment & Plan (1) Rotator cuff insufficiency of right shoulder: Code(s): M25.311 - Other instability, right shoulder Category: Medical Plan Mr. Manuel presents with right shoulder pain and weakness due to impingement syndrome, acromioclavicular joint arthritis and a full-thickness rotator cuff tear. I had a lengthy discussion with the patient regarding the treatment options. At this point he has failed continued non operative treatments. The risks and benefits of right shoulder surgery were discussed at length with the patient. The patient wishes to proceed with surgery. Surgery will involve right shoulder arthroscopic distal clavicle excision, right shoulder arthroscopic acromioplasty and right shoulder mini open rotator cuff repair. The patient will be scheduled for next available date. He will follow up as instructed. Feel free to call me at any time should questions regarding his orthopedic management arise. I spent 20 minutes in reviewing the patient's records and imaging studies, seeing the patient and documenting in the medical record. Coding Level of Care Code Est Pt Level 3 (01816) Complex EM visit Add On G2211 Diagnoses Rotator cuff insufficiency of right shoulder M25.311
--- OUTSIDE RECORDS SUMMARY | 2025-06-12 13:11 | XMS_ITS | Patient Health Record ---
Author Organization [facility] Address [address] [place] [address] Care Team Providers Care Assignment Agent Name Role Phone Isamar Diaz Primary Care [...] Status Risk Notes Problem Colon cancer screening (498626572) Colon cancer screening (Z12.11) Active confirmed Problem Gastroesophageal reflux disease (597782976) Gastroesophageal reflux disease, unspecified whether esophagitis present (K21.9) Active confirmed Plan Of Treatment Future Test Test Name Order Date COLONOSCOPY 08/26/2022 Insurance Providers Payer Name Payer Address Payer Phone Subscriber Number Group Number Insured Name Patient Relationship to Insured Coverage Start Date Coverage End Date [facility] [address] [address] [place], [place] [id number] VINEET CAGE Self - patient is the insured Medical (General) History Medical History History ICD Code Nephrolithiasis hypertension BPH GERD Colon polyps Depression Surgical History Surgery Date(Month/Year) Multiple cystoscopies/ESWLs for nephroli thiasis
== END 2025-06-12 11:17 | disposition home or self-care (01) ==
LOC: HO.HOS 10:37
PROVIDERS: PCP Internal Medicine; Visit Provider Orthopaedic Surgery
DX: M25.311 Other instability, right shoulder (principal)
CPT/HCPCS: 99214

== ENCOUNTER → 2025-06-12 10:37 | Outpatient (BNVA) | payer OTHER, SELFPAY | PROVIDERS: PCP Internal Medicine; Visit Provider Orthopaedic Surgery | DX: M25.511 Pain in right shoulder (principal); M25.311 Other instability, right shoulder | CPT/HCPCS: 99212 ==

== ENCOUNTER 2025-07-01 13:13 | Outpatient (AMB) | payer OTHER, SELFPAY ==
--- NOTE | 2025-07-01 13:23 | MHC.OFFVIS ---
Vital Signs 07/01/25 13:25 Height 5 ft 4 in Weight 214 lb 15.211 oz BMI 36.9 BP 140/60 H Blood Pressure Location Lt brachial Position Sitting Pulse 77 Pulse Source Pulse Oximeter Pulse Oximetry (%) 95 Oxygen Delivery Method Room Air Intake Visit Reasons: Obstructive sleep apnea Intake Note: pt is here for follow up and states he is having a problem with cpap and the leak next to the water chamber. Fitness Sales Consultant Required: No Fuel Retrofitting Technician: Fuel Retrofitting Technician offered & declined Allergies No Known Allergies Allergy (Verified 07/01/25 14:11) Medication List - Last Reconciled 07/01/25 by Izzy Starr MD amlodipine 10 mg PO DAILY 90 days blood pressure monitor As directed CPAP (CPAP Machine/Device) autoPAP mode 6-20 cmH2O ipratropium bromide 2 sprays intranasal BID lisinopril 40 mg PO DAILY 90 days nabumetone 750 mg PO BID PRN 90 days Do you need a note to return to daycare/school/sports/work: No HPI HPI Obstructive sleep apnea: Details: 60 years old very pleasant gentleman is a case of obstructive sleep apnea which is being treated very well with the use of CPAP. He uses CPAP very regularly and actually sleeps good. In the last few months he has relaxed his eating habit and has put on some weight. Denies any breathing problems There is some nasal congestion which is treated by using ipratropium bromide spray in each nostril. [facility] Medical History Sleep apnea Glaucoma Bilateral cataracts Obesity (BMI 30-39.9) Daytime somnolence Mild recurrent major depression BPH (benign prostatic hyperplasia) Renal calculi Colon polyps History of hypertension Surgical History History of left cataract extraction Hx of umbilical hernia repair H/O colonoscopy H/O lithotripsy Family History Mother Mental health disorder Father Hypertension Dialysis complication Social History Housing: Apartment Alcohol intake: never Patient Tobacco Use Status: Former Tobacco user Tobacco use type: Cigarette e-Cigarette/Vaping Use: Never Used Second Hand Smoke Exposure: No Substance Use Type: Opiates service: No Current occupational status: unemployed Cognitive needs: No Hearing needs: No Vision needs: Yes Review of Systems Const All systems reviewed & are unremarkable except as noted in HPI and below Reports snoring Eyes Reports no additional complaints ENT Reports nasal congestion (AT NIGHT) Card Denies chest pain, Denies irregular heart rhythm and Denies leg edema Resp Reports cough (OCCASIONAL), Reports snoring and Denies wheezing GI Reports no additional complaints Reports nocturia Musc Reports no additional complaints Skin/Breast Reports system reviewed and no additional complaints, except as documented Neuro Reports no additional complaints Psych Reports no additional complaints Endo Reports no additional complaints Raheel/Lymph Reports no additional complaints Aller/Immun Denies wheezing Physical Exam Vital Signs: Last Vital Signs Pulse 77 07/01/25 13:25 BP 140/60 H 07/01/25 13:25 Pulse Ox 95 07/01/25 13:25 Oxygen Delivery Method Room Air 07/01/25 13:25 BMI result Body Mass Index 36.9 Const General: healthy appearing (EXCEPT FOR BEING OVERWEIGHT), comfortable, no acute distress, alert and awake Orientation/consciousness: patient oriented x3 HEENT Head: Yes normal to inspection General nose exam: No nasal polyps present and No nasal discharge present Face and sinus: Yes sinuses nontender Mouth: oropharynx abnormals (OROPHARYNX IS NARROW AND CROWDED, MALLAMPATI CLASS 4) Throat: Yes posterior oropharynx normal Eyes General: appearance normal, both eyes and all related structures Neck Neck: Yes normal visual inspection, Yes no lymphadenopathy, Yes trachea midline, Yes no JVD and Yes other (NECK CIRCUMFERENCE 17 IN) Thyroid: Thyroid normal Chest Chest palpation & inspection: normal inspection of the chest, normal palpation of entire chest wall and no tenderness Resp Effort & Inspection: normal respiratory effort Auscultation: clear to auscultation bilaterally, no crackles and no wheezes Cardio Palpation: normal PMI Rate: regular rate Rhythm: regular rhythm Heart sounds: no gallops and no murmurs Peripheral pulses: Peripheral pulses 2+ throughout GI Palpation (GI): Soft to palpation, nontender, No hepatosplenomegaly present and no masses Auscultation: normal bowel sounds Back/Spine/Pelvis Thoracic/Lumbar Spine: thoracic and lumbar spine normal to inspection Skin General skin exam: no rashes or lesions noted Neuro General: patient oriented x3 and no focal motor deficits Cranial nerves: Yes CN's II-XII intact bilaterally Extrem General: Yes normal to inspection, Yes no clubbing, cyanosis or edema and Yes no calf tenderness Psych Appearance: grossly normal and well kempt Speech and movement: Normal speech and movement present Results Reviewed Results Reviewed: Reviewed tree results of his compliance in the last 1 month. He has used 29/30 nights, 97%. Average use per night 5 hours 57 minutes. Pressure used between 7-8 cm. No significant air leak. Residual AHI only 0.1 Assessment & Plan Assessment & Plan (1) Obesity (BMI 30-39.9): Comment: THIS GENTLEMAN IS MODERATELY OBESE, THIS TIME IN THE LAST 6 MONTHS HE HAS GAINED SIGNIFICANT WEIGHT HE HAS NOT BEEN WATCHING HIS DIET. HE ALSO SAY IS THAT HE HAS SHOULDER AND KNEE PAIN AND HAS HAD CORTISONE INJECTIONS QUITE A FEW TIMES. HE IS NOT ABLE TO WALK MUCH Code(s): E66.9 - Obesity, unspecified Category: Medical Plan: I DISCUSSED WITH HIM AT LENGTH ABOUT HIS WEIGHT ISSUE. ADVISED HIM TO CUT DOWN THE PORTIONS OF THE MEALS AND ESPECIALLY CARBOHYDRATES. ADVISED HIM THAT HE MUST HAVE A GOAL OF WALKING ABOUT 2 MILES EVERY DAY, EVEN THOUGH HE HAS TO WALK SLOWLY. (2) JULIA (obstructive sleep apnea): Comment: HE HAS SEVERE OBSTRUCTIVE SLEEP APNEA. HE HAS BEEN USING CPAP VERY REGULARLY, EVERY NIGHT. HE CLAIMS THAT HE USES FOR NO LESS THAN 6 HOURS EVERY NIGHT AND SLEEPS GOOD. HIS COMPLIANCE IS VERY GOOD. Code(s): G47.33 - Obstructive sleep apnea (adult) (pediatric) Category: Medical Plan: COMMENDED FOR GOOD COMPLIANCE AND ADVISED TO USE CPAP EVERY NIGHT, TRY TO USE MORE THAN 6 HOURS PER NIGHT Coding Level of Care Code Est Pt Level 3 (29340) Diagnoses Obesity (BMI 30-39.9) E66.9 JULIA (obstructive sleep apnea) G47.33
[2025-07-01 13:25] VITALS: BP 140/60; PULSE 77; O2SAT 95; BMI 36.9
== END 2025-07-01 14:12 | disposition home or self-care (01) ==
LOC: HO.HPS 13:14
PROVIDERS: PCP Internal Medicine; Visit Provider Internal Medicine
DX: E66.9 Obesity, unspecified (principal); G47.33 Obstructive sleep apnea (adult) (pediatric)
CPT/HCPCS: 99213

== ENCOUNTER → 2025-07-01 13:13 | Outpatient (BNVA) | payer OTHER, SELFPAY | PROVIDERS: PCP Internal Medicine; Visit Provider Internal Medicine | DX: G47.33 Obstructive sleep apnea (adult) (pediatric) (principal); Z99.89 Dependence on other enabling machines and devices; E66.9 Obesity, unspecified | CPT/HCPCS: 99212 ==

== ENCOUNTER 2025-07-09 10:52 | Outpatient (AMB) | payer OTHER, SELFPAY ==
[2025-07-09 11:06] VITALS: BP 138/74; PULSE 79; TEMP 36.6; O2SAT 99; BMI 30.9
--- NOTE | 2025-07-09 11:06 | A.OFFPC_ITS ---
Vital Signs 07/09/25 11:06 Height 5 ft 4 in Weight 180 lb BMI 30.9 BP 138/74 Blood Pressure Location Lt brachial Position Sitting Pulse 79 Pulse Source Pulse Oximeter Temp 97.9 F Temp Source Temporal Artery Scan Pulse Oximetry (%) 99 Oxygen Delivery Method Room Air Intake Visit Reasons: 08/[address] 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 Worker Fruit Required: No Accompanied by: Self / Same As Patient Allergies No Known Allergies Allergy (Verified 07/09/25 11:06) Medication List - Last Reconciled 07/09/25 by Иван Lemus MD amlodipine 10 mg PO DAILY 90 days blood pressure monitor As directed CPAP (CPAP Machine/Device) autoPAP mode 6-20 cmH2O ipratropium bromide 2 sprays intranasal BID lisinopril 40 mg PO DAILY 90 days nabumetone 750 mg PO BID PRN 90 days Tobacco use date assessed: 07/09/25 Dental Screening Dental Screen Date: 07/09/25 Did you have a dental visit in the last 12 months?: No Did you have a dental problem in the last 6 months where you did not have access to dental care?: No HPI HPI Comments History of Present Illness Details The patient is a 60 year old M with PMH of HTN, JULIA presenting for pre- operative clearance for a planned right shoulder surgery. The surgery is scheduled for August [address] Mae for a rotator cuff issue. The planned procedures include a right shoulder arthroscopic distal clavicle excision, right shoulder arthroscopic acromioplasty, and a right shoulder mini-open rotator cuff repair. The patient's past medical history is significant for obstructive sleep apnea, for which the patient uses a CPAP machine due to severe snoring. The patient also has a history of hypertension, which is reportedly well-controlled with daily amlodipine and lisinopril. Additionally, the patient has osteoarthritis, managed with nabumetone, and reports knee pain with walking. The patient reports no history of heart problems such as a heart attack, stents, or heart failure, and denies any liver or kidney problems. [facility] Medical History Sleep apnea Glaucoma Bilateral cataracts Obesity (BMI 30-39.9) Daytime somnolence Mild recurrent major depression BPH (benign prostatic hyperplasia) Renal calculi Colon polyps History of hypertension Surgical History History of left cataract extraction Hx of umbilical hernia repair H/O colonoscopy H/O lithotripsy Family History Mother Mental health disorder Father Hypertension Dialysis complication Social History Housing: Apartment Alcohol intake: never Patient Tobacco Use Status: Former Tobacco user Tobacco use type: Cigarette e-Cigarette/Vaping Use: Never Used Second Hand Smoke Exposure: No Substance Use Type: Opiates service: No Current occupational status: unemployed Cognitive needs: No Hearing needs: No Vision needs: Yes Questionnaire Thrive Questionnaire Date Thrive assessed: 01/23/25 I am a: Patient What is your living situation today?: I have a steady place to live Within the past 12 months, did the food you bought not last and you didn't have the money to get more?: Never true Within the past 12 months, did you worry whether your food would run out before you got money to buy more?: Never true Do you have trouble paying for medicines?: No Do you have trouble getting transportation to medical appointments?: No Do you have trouble paying your heating and electricity bill?: No Do you have trouble taking care of your child, family member or friend?: No Do you have trouble with day-to-day activities such as bathing, preparing meals, shopping, managing finances, etc.?: No Are you currently unemployed and looking for a job?: No Are you interested in more education?: No Please select the resources that you would like help with: None Currently or been in a relationship where the following occur: No concerns reported THRIVE Score: 0 JESSICA-7 AMB Questionnaire JESSICA-7 Date JESSICA - 7 assessed: 10/19/24 Source: Developed by Drs. Osmin Gong, Raine Sánchez, Serg Mclain and colleagues, with an educational allan from [employer]. Review of Systems Const Details: As per HPI. Physical exam (Primary Care) Vital Signs: Last Vital Signs Temp 97.9 F 07/09/25 11:06 Pulse 79 07/09/25 11:06 BP 138/74 07/09/25 11:06 Pulse Ox 99 07/09/25 11:06 Oxygen Delivery Method Room Air 07/09/25 11:06 BMI result Body Mass Index 30.9 Tobacco/Smoking Status: Tobacco use Status Tobacco use date assessed 07/09/25 07/09/25 11:08 Patient Tobacco Use Status Former Tobacco user 07/09/25 11:08 Tobacco use type Cigarette 07/09/25 11:08 e-Cigarette/Vaping Use Never Used 07/09/25 11:08 Thrive Assessment: Date of Thrive Assessment Date Thrive assessed 01/23/25 07/09/25 11:08 Currently or been in a relationship where the following occur: No concerns reported Const Other: Pertinent findings are in BOLD GENERAL APPEARANCE NAD, activity normal for age, well developed/ well nourished, no cyanosis, pallor, or diaphoresis. EYES lids/conjunctiva normal. EARS/NOSE/THROAT Mucous membranes moist, nares normal, lips/teeth normal uvula midline without oral pharyngeal erythema, exudate or swelling TMs normal bilaterally. No lymphangitis/lymphedema. HEAD/NECK normocephalic atraumatic, no facial trauma, neck is supple. RESPIRATORY respiratory effort normal, speaks in full sentences, no tripod position, no accessory muscle use. Lungs clear to auscultation without rhonchi, wheezes, rales CARDIAC Regular rate and rhythm, no edema. ABDOMINAL Soft, ND/NT. No evidence of fluid wave. No pulsatile masses on exam, rebound tenderness, Cisse sign or pain over Mcburney's point. MUSCLES/EXTREMITIES No abnormal range of motion, no swelling. SKIN Warm, pink and dry. No rashes, dermatoses, petechiae or lesions. NEUROLOGICAL Speech is clear and appropriate. Normal level of consciousness. Gait and coordination are normal. 5/5 strength in all extremities. PSYCH Normal mood and affect. Judgement/competence is appropriate Coding Level of Care Code Est Pt Level 3 (45411) Diagnoses Pre-op evaluation Z01.818 Time Spent (min) 20 Assessment & Plan Assessment & Plan (1) Pre-op evaluation: Code(s): Z01.818 - Encounter for other preprocedural examination Category: Medical Plan: - The patient is scheduled for surgery on August 09. - The planned procedure includes right shoulder arthroscopic distal clavicle excision, acromioplasty, and mini-open rotator cuff repair. - Orders placed for pre-operative workup including general labs, a chest X-ray, and an EKG. - The chest X-ray is indicated due to the patient's history of obstructive sleep apnea. - The EKG done in the office was normal. Plan I confirmed with the patient that this visit was for pre-operative clearance for a right shoulder surgery scheduled for next month on the . I explained the plan to order general labs (non-fasting), a chest x-ray due to the history of sleep apnea, and an EKG to be performed today. I instructed the patient that after the in-office EKG, the patient should go to the [facility] for the blood work and chest x-ray. Orders: Orders Comprehensive Met. Panel Today Z01.818 - Encounter for other preprocedural examination XR chest 2V Today Z01.818 - Encounter for other preprocedural examination Prothrombin Time INR Today Z01.818 - Encounter for other preprocedural examination Complete Blood Count no Diff Today Z01.818 - Encounter for other preprocedural examination
--- OUTSIDE RECORDS SUMMARY | 2025-07-09 14:13 | XMS_ITS | Patient Health Record ---
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 Problem Type SNOMED Code ICD Code Onset Dates Problem Status W/U Status Risk Notes Problem Colon cancer screening (623440573) Colon cancer screening (Z12.11) Active confirmed Problem Gastroesophageal reflux disease (724268726) Gastroesophageal reflux disease, unspecified whether esophagitis present (K21.9) Active confirmed Plan Of Treatment Future Test Test Name Order Date COLONOSCOPY 08/26/2022 Insurance Providers Payer Name Payer Address Payer Phone Subscriber Number Group Number Insured Name Patient Relationship to Insured Coverage Start Date Coverage End Date [facility] [address] [address] [place], [place] [id number] VINEET CAGE Self - patient is the insured Medical (General) History Medical History History ICD Code Nephrolithiasis hypertension BPH GERD Colon polyps Depression Surgical History Surgery Date(Month/Year) Multiple cystoscopies/ESWLs for nephroli thiasis
== END 2025-07-09 12:30 | disposition home or self-care (01) ==
LOC: HO.HMCH 10:53
PROVIDERS: PCP Internal Medicine; Visit Provider Internal Medicine
DX: Z01.818 Encounter for other preprocedural examination (principal)

== ENCOUNTER → 2025-07-09 10:52 | Outpatient (BNVA) | payer OTHER, SELFPAY | PROVIDERS: PCP Internal Medicine; Visit Provider Internal Medicine | DX: Z01.818 Encounter for other preprocedural examination (principal); I10 Essential (primary) hypertension; G47.33 Obstructive sleep apnea (adult) (pediatric); Z99.89 Dependence on other enabling machines and devices | CPT/HCPCS: 99212 ==

== ENCOUNTER 2025-07-19 11:19 | Outpatient (REF) | payer OTHER, SELFPAY ==
--- NOTE | ~2025-07-19 | XR_ITS ---
EXAMINATION: XR CHEST 2 VIEWS HISTORY: Z01.818 - Encounter for other preprocedural examination COMPARISON: There are no prior studies available for comparison. FINDINGS: PA and lateral views of the chest are submitted. The lungs are expanded and clear. There is no pleural effusion, pneumothorax, or pulmonary vascular congestion. The heart is normal in size. There is degenerative disc disease of the spine. XR/XR chest 2V IMPRESSION: Clear lungs. Electronically signed by: Osmin Whiting MD 07/19/2025 12:27 PM JOSIANE ANDRADE
[2025-07-19 12:14] LABS: INTERNATIONAL NORM RATIO 0.9 (0.9-1.1); Prothrombin Time 11.2 SEC (11.2-13.5)
[2025-07-19 12:25] LABS: Hematocrit 48.4 % (42.0-52.0); Hemoglobin 16.2 g/dl (14.0-18.0); Mean Corpuscular HGB Conc 33.5 g/dl (31.0-36.0); Mean Corpuscular Hemoglobin 28.1 pg (27.0-33.0); Mean Corpuscular Volume 83.9 fL (80.0-98.0); NRBC Abs Auto 0.000 X10*3/uL (0.0-0.012); NRBC Pct Auto 0.0 /100WBC (0.0-0.2); Platelet Count 259 X10*3/uL (160-400); Red Blood Count 5.77 X10*6/uL (4.60-5.80); White Blood Count 8.8 X10*3/uL (4.8-10.8)
[2025-07-19 12:50] LABS: Alanine Aminotransferase 38 U/L (0-40); Albumin Level 5.0 g/dL (3.5-5.0); Alkaline Phosphatase 88 U/L (39-117); Anion Gap 14 (12-20); Aspartate Amino Transferase 32 U/L (5-37); Blood Urea Nitrogen 9 mg/dL (9-16); Calcium 10.0 mg/dL (8.4-10.2); Carbon Dioxide 21 mmol/L (22-29); Chloride 108 mmol/L (96-108); Estimated Glomerular Filt Rate > 60; Potassium 3.6 mmol/L (3.3-5.1); Sodium 139 mmol/L (135-145); Total Protein 8.6 g/dL (6.5-8.0)
--- OUTSIDE RECORDS SUMMARY | 2025-07-19 13:58 | XMS_ITS | Patient Health Record ---
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 Problems Problem Type SNOMED Code ICD Code Onset Dates Problem Status W/U Status Risk Notes Problem Colon cancer screening (137510099) Colon cancer screening (Z12.11) Active confirmed Problem Gastroesophageal reflux disease (743506732) Gastroesophageal reflux disease, unspecified whether esophagitis present (K21.9) Active confirmed Plan Of Treatment Future Test Test Name Order Date COLONOSCOPY 08/26/2022 Insurance Providers Payer Name Payer Address Payer Phone Subscriber Number Group Number Insured Name Patient Relationship to Insured Coverage Start Date Coverage End Date [facility] [address] [address] [place], [place] [id number] VINEET CAGE Self - patient is the insured Medical (General) History Medical History History ICD Code Nephrolithiasis hypertension BPH GERD Colon polyps Depression Surgical History Surgery Date(Month/Year) Multiple cystoscopies/ESWLs for nephroli thiasis
== END 2025-07-19 11:20 | disposition home or self-care (01) ==
LOC: HO.XRAY 11:19
PROVIDERS: Absent Provider Internal Medicine; PCP Internal Medicine; Visit Provider Internal Medicine
DX: Z01.818 Encounter for other preprocedural examination (principal)
CPT/HCPCS: 36415; 71046; 80053; 85027; 85610

== ENCOUNTER → 2025-07-19 12:05 | Outpatient (BNV) | payer OTHER, SELFPAY | PROVIDERS: Absent Provider Internal Medicine; PCP Internal Medicine; Visit Provider Radiology Diagnostic Radiology | DX: Z01.810 Encounter for preprocedural cardiovascular examination (principal) | CPT/HCPCS: 71046 ==

== ENCOUNTER 2025-08-01 10:01 | Outpatient (AMB) | payer OTHER, SELFPAY ==
--- NOTE | 2025-08-01 10:14 | MHC.OFFVIS ---
Vital Signs 08/01/25 10:21 Height 5 ft 4 in Weight 180 lb BMI 30.9 BP 169/69 H Pulse 82 Pulse Oximetry (%) 96 Intake Visit Reasons: Preop RT shoulder 08/09/25 DR Intake Note: Ziggy is a 60 year old male who presents with complaints of progressively worsening right shoulder pain and weakness. The patient describes his pain as sharp in nature. Most of the pain is along the lateral aspect of his right shoulder. His symptoms have gotten worse over the last year in spite of continued non operative treatments. He has tried Tylenol and anti-inflammatory medicines which gave him minimal relief. He has also done physical therapy which aggravated his pain. At this point his right shoulder pain and weakness or interfering with his activities of daily living and his ability to sleep well through the night. The patient reports weakness when lifting his right hand above shoulder height. The patient states that anesthesia has had trouble with IV access in the past. His last surgery required an IV placed in his neck. Allergies No Known Allergies Allergy (Verified 08/01/25 10:21) Medication List - Last Reconciled 08/01/25 by Michael Mae MD amlodipine 10 mg PO DAILY 90 days blood pressure monitor As directed CPAP (CPAP Machine/Device) autoPAP mode 6-20 cmH2O ipratropium bromide 2 sprays intranasal BID lisinopril 40 mg PO DAILY 90 days nabumetone 750 mg PO BID PRN 90 days PFSH Medical History Osteoarthritis Sleep apnea Glaucoma Bilateral cataracts Obesity (BMI 30-39.9) Daytime somnolence Mild recurrent major depression BPH (benign prostatic hyperplasia) Renal calculi Colon polyps History of hypertension Surgical History History of left cataract extraction Hx of umbilical hernia repair H/O colonoscopy H/O lithotripsy Family History Mother Mental health disorder Father Hypertension Dialysis complication Social History Housing: Apartment Are you a primary hospice care sales consultant to a significant other at home: No Do you presently have visiting nurse or other home services: No Alcohol intake: never Patient Tobacco Use Status: Former Tobacco user Tobacco use type: Cigarette e-Cigarette/Vaping Use: Never Used Second Hand Smoke Exposure: No Substance Use Type: Opiates service: No Current occupational status: unemployed Cognitive needs: No Hearing needs: No Vision needs: Yes Physical Exam Vital Signs: Last Vital Signs Pulse 82 08/01/25 10:21 BP 169/69 H 08/01/25 10:21 Pulse Ox 96 08/01/25 10:21 BMI result Body Mass Index 30.9 Extrem Other: Right shoulder examination shows decreased range of motion when compared to his left shoulder, 4/5 strength with supraspinatus testing, positive impingement signs, tenderness over his acromioclavicular joint, no instability Results Reviewed Results Reviewed: MRI of the patient's right shoulder show severe acromioclavicular joint narrowing, a type 2 acromion, a full-thickness tear of the supraspinatus tendon Assessment & Plan Assessment & Plan (1) Poor intravenous access: Code(s): Z78.9 - Other specified health status Category: Medical Plan Mr. Manuel presents with right shoulder pain and weakness due to impingement syndrome, acromioclavicular joint arthritis and a rotator cuff tear. The risks and benefits of right shoulder surgery were at length with the patient. The patient wishes to proceed. Surgery will involve right shoulder arthroscopic distal clavicle excision, right shoulder arthroscopic acromioplasty and right shoulder mini open rotator cuff repair. Because of the patient's history of difficult IV access I will arrange for him to have a peripheral line placed in Interventional Radiology on the morning of his surgery. The line will be removed prior to his discharge that day. The patient will be given a prescription for pain medicine at the time of his surgery. He will follow up as instructed. Feel free to call me at any time should questions regarding his orthopedic management arise. I spent 20 minutes in reviewing the patient's records and imaging studies, seeing the patient and documenting in the medical record. Orders: Orders IR cvc insert peripheral 08/09/25 Z78.9 - Other specified health status Coding Level of Care Code Est Pt Level 3 (24330) Add On Problem Visit Only Diagnoses Poor intravenous access Z78.9
[2025-08-01 10:21] VITALS: BP 169/69; PULSE 82; O2SAT 96; BMI 30.9
--- OUTSIDE RECORDS SUMMARY | 2025-08-01 12:20 | XMS_ITS | Patient Health Record ---
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 Problems Problem Type SNOMED Code ICD Code Onset Dates Problem Status W/U Status Risk Notes Problem Colon cancer screening (154830337) Colon cancer screening (Z12.11) Active confirmed Problem Gastroesophageal reflux disease (578130493) Gastroesophageal reflux disease, unspecified whether esophagitis present (K21.9) Active confirmed Plan Of Treatment Future Test Test Name Order Date COLONOSCOPY 08/26/2022 Insurance Providers Payer Name Payer Address Payer Phone Subscriber Number Group Number Insured Name Patient Relationship to Insured Coverage Start Date Coverage End Date [facility] [address] [address] [place], [place] [id number] VINEET CAGE Self - patient is the insured Medical (General) History Medical History History ICD Code Nephrolithiasis hypertension BPH GERD Colon polyps Depression Surgical History Surgery Date(Month/Year) Multiple cystoscopies/ESWLs for nephroli thiasis
== END 2025-08-01 10:43 | disposition home or self-care (01) ==
LOC: HO.HOS 10:02
PROVIDERS: PCP Internal Medicine; Visit Provider Orthopaedic Surgery
DX: Z78.9 Other specified health status (principal)
CPT/HCPCS: 99024

== ENCOUNTER → 2025-08-01 10:01 | Outpatient (BNVA) | payer OTHER, SELFPAY | PROVIDERS: PCP Internal Medicine; Visit Provider Orthopaedic Surgery | DX: Z01.818 Encounter for other preprocedural examination (principal); M25.511 Pain in right shoulder; M75.41 Impingement syndrome of right shoulder | CPT/HCPCS: 99212 ==

== ENCOUNTER 2025-08-09 08:08 | Day surgery (SDC) | payer OTHER, SELFPAY ==
--- OUTSIDE RECORDS SUMMARY | 2025-07-03 05:58 | XMS_ITS | Patient Health Record ---
Author Organization [facility] Address [address] [place] [address] Care Team Providers Care General Dentist Name Role Phone Isamar Diaz Primary Care Provider UnavailScott Andrade Jr Unavailable Allergies No Known Allergies Reason For Referral No Information Medications Medication SIG (Take, Route, Frequency, Duration) Notes Start Date End Date Status MiraLax (colon prep) 17 GM/SCOOP Powder mixed with Gatorade or Crystal Light Orally begin at 5:00 p.m. the day before the procedure; Duration: 1 day 08/26/2022 Active Tamsulosin HCl 0.4 MG Capsule TAKE 1 CAPSULE BY MOUTH AT BEDTIME Oral; Duration: 90 Active Lisinopril 20 MG Tablet 1 tablet Orally Once a day 08/26/2022 Active Multivitamin - Tablet 1 tablet Orally On ce a day; Duration: 30 day(s) Active Omeprazole 20 MG Capsule Delayed Release 1 capsule 30 minutes before morning meal Orally Once a day; Duration: 30 day(s) prn Active buPROPion HCl 150 MG Tablet Extended Release as directed Orally Activ e Immunizations Vaccine Route Administration Date Status Comme nts Influenza Unknown 08/26/2022 Refused Social History Tobacco Use: Social History Observation Description Date Details (start date - stop date) Former Smoker NA - NA Social History Drugs/Alcohol: Social Info Question Answer Notes Alcohol Screen Did you have a drink containing alcohol in the past year? Yes How often did you have a drink containing alcohol in the past year? Monthly or less (1 point) How many drinks did you have on a typical day when you were drinking in the past year? 1 or 2 drinks (0 point) How often did you have 6 or more drinks on one occasion in the past year? Never (0 point) Points 1 Interpretation Negative Tobacco Use: Social Info Question Answer Notes Tobacco Use/Smoking Patient is a former smoker How long has it been since you last smoked? 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 Problems Problem Type SNOMED Code ICD Code Onset Dates Problem Status W/U Status Risk Notes Problem Colon cancer screening (462332822) Colon cancer screening (Z12.11) Active confirmed Problem Gastroesophageal reflux disease (540325635) Gastroesophageal reflux disease, unspecified whether esophagitis present (K21.9) Active confirmed Plan Of Treatment Future Test Test Name Order Date COLONOSCOPY 08/26/2022 Insurance Providers Payer Name Payer Address Payer Phone Subscriber Number Group Number Insured Name Patient Relationship to Insured Coverage Start Date Coverage End Date [facility] [address] [address] [place], [place] [id number] VINEET CAGE Self - patient is the insured Medical (General) History Medical History History ICD Code Nephrolithiasis hypertension BPH GERD Colon polyps Depression Surgical History Surgery Date(Month/Year) Multiple cystoscopies/ESWLs for nephroli thiasis
[2025-07-26 09:01] VITALS: BMI 30.9
--- NOTE | 2025-07-26 09:17 | P.CONAN_ITS ---
Documented by User: Alea Lucero NP 08/05/25 14:12 HPI - Anesthesia Eval Consult details Narrative: 60 yr old male for right ?Shoulder Arthroscopy,distal clavicle excision,acromioplasty with Mini Open RCR scheduled for 08/09/25; had phone PAT with RN. No acute illness or concerns per phone PAT visit 07/26/25. Pt denies CP or SOB with light activity. Medical clearance with PCP 07/19/25: CBC, CMP, EKG, CXR within normal limits. Patient is cleared for surgery . JULIA: compliant with CPAP use, sees [facility], last visit 07/01/25. PMFSH Active Problems Active Problems: All Active Problems Pre-op evaluation (Acute) Rotator cuff insufficiency of right shoulder (Acute) Bilateral shoulder pain (Acute) Osteoarthritis of right knee (Acute) Osteoarthritis of left knee (Acute) Hearing loss (Acute) Status post umbilical hernia repair, follow-up exam (Acute) Umbilical hernia (Acute 09/14/24) Umbilical hernia (Acute) Polyarthralgia (Acute) Left buttock abscess (Acute) Right knee pain (Acute) Left knee pain (Acute) Knee pain, bilateral (Acute) Nocturia more than twice per night (Acute) Nocturia associated with benign prostatic hyperplasia (Acute) Nocturnal hypoxemia (Acute) JULIA (obstructive sleep apnea) (Acute) Obese (Acute) Essential hypertension (Acute) Physical exam (Acute) Pre-operative clearance (Acute) Cataract (Acute) Overweight (BMI 25.0-29.9) (Acute) Glaucoma (Acute) Bilateral cataracts (Acute) Obesity (BMI 30-39.9) (Acute) BPH (benign prostatic hyperplasia) (Acute) Renal calculi (Acute) Colon polyps (Acute) Past Medical History Medical History Osteoarthritis Sleep apnea Glaucoma Bilateral cataracts Obesity (BMI 30-39.9) Daytime somnolence Mild recurrent major depression BPH (benign prostatic hyperplasia) Renal calculi Colon polyps History of hypertension Family History Family History Mother Mental health disorder Father Hypertension Dialysis complication Family history of problems with anesthesia: No Surgical History Surgical History History of left cataract extraction Hx of umbilical hernia repair H/O colonoscopy H/O lithotripsy History of Problems with Anesthesia: No Social History Social History Housing: Apartment Are you a primary managed care provider to a significant other at home: No Do you presently have visiting nurse or other home services: No Alcohol intake: never Patient Tobacco Use Status: Former Tobacco user Tobacco use type: Cigarette e-Cigarette/Vaping Use: Never Used Second Hand Smoke Exposure: No Use of substances other than those prescribed or required for medical reasons: No Substance Use Type: Opiates Have you been hit, kicked, punched, or otherwise hurt by someone within the past year? If so, by whom?: No Are you DNR?: No Advance Directives: No Advance Directives Information Provided: Yes Advance Directives on File: No service: No Current occupational status: unemployed Cognitive needs: No Hearing needs: No Vision needs: Yes Meds Allergies Allergy/AdvReac Type Severity Reaction Status Date / Time No Known Allergies Allergy Verified 08/01/25 10:21 Exam Height,Weight and Vital Signs: Height 5 ft 4 in Weight 81.647 kg Pertinent Lab Results Pertinent Lab Results: Laboratory Tests 07/19/25 11:57 WBC 8.8 RBC 5.77 Hgb 16.2 Hct 48.4 Plt Count 259 Sodium 139 Potassium 3.6 Chloride 108 BUN 9 Creatinine 0.66 Narrative Narrative: EKG 06/2025 NSR, rate [address]-T wave changes Assessment and Plan Assessment Anesthesia Assessment: Chart Reviewed Final Anesthetic Review Family History of Problems with Anesthesia: No History of Problems with Anesthesia: No Documented by User: Andrew Blandon MD 08/09/25 13:15 [facility] Past Medical History Medical History Osteoarthritis Sleep apnea Glaucoma Bilateral cataracts Obesity (BMI 30-39.9) Daytime somnolence Mild recurrent major depression BPH (benign prostatic hyperplasia) Renal calculi Colon polyps History of hypertension Family History Family History Mother Mental health disorder Father Hypertension Dialysis complication Surgical History Surgical History History of left cataract extraction Hx of umbilical hernia repair H/O colonoscopy H/O lithotripsy Social History Social History Housing: Apartment Are you a primary managed care provider to a significant other at home: No Do you presently have visiting nurse or other home services: No Alcohol intake: never Patient Tobacco Use Status: Former Tobacco user Tobacco use type: Cigarette e-Cigarette/Vaping Use: Never Used Second Hand Smoke Exposure: No Use of substances other than those prescribed or required for medical reasons: No Substance Use Type: Opiates Have you been hit, kicked, punched, or otherwise hurt by someone within the past year? If so, by whom?: No Are you DNR?: No Advance Directives: No Advance Directives Information Provided: Yes Advance Directives on File: No service: No Current occupational status: unemployed Cognitive needs: No Hearing needs: No Vision needs: Yes Meds Allergies Allergy/AdvReac Type Severity Reaction Status Date / Time No Known Allergies Allergy Verified 08/01/25 10:21 Exam Exam Date and Time: 08/09/25 Airway Mallampati Class: II TM Dist: >3cm Neck ROM: Full Heart: rrr Lungs: ctab vesicular Assessment and Plan Assessment Anesthesia Assessment: Anesthesia Plan Discussed Final Anesthetic Review NPO: Yes ASA Class: II Final Preanesthetic Review: No Changes in Pt Med Stat, Meds/Allgs Chart Reviewed, Consent Obtained/Reviewed and Anes Risks/Benef Reviewed Patient Risk: Low Procedure Risk: Low Anesthetic Plan Anesthetic Plan: GA Disposition: Standard PACU
[2025-08-09] VITALS (8 sets, daily range): BP systolic 110–153; BP diastolic 63–75; PULSE 72–78; RESP 16–24; TEMP 36.5–36.6; O2SAT 90–95
--- NOTE | 2025-08-09 09:18 | PC.NURSE ---
Pt to radiology rm 7 to receive PICC line for procedure after changed into gown
--- NOTE | 2025-08-09 10:57 | HO.MIDLINE_ITS ---
Midline Insertion MIDLINE INSERTION Diagnosis: Difficulty IV Indication: Surgery Pertinent Labs: Reviewed Technique: Using sterile technique including cap and mask, glove and drape, the Left arm was prepped and draped in the usual sterile fashion of full barrier technique with [facility]. Using ultrasound guidance, Left Brachial vein access was obtained by Dr Lucia due to having trouble treading the wire. [id number] PowerGlide Midline ST was positioned. The procedure was performed in 7. Ultrasound was used to document vein patency and for needle entry. A formal ultrasound picture was recorded. Vascular Shipping Inspector has released the line for use and it is currently dressed with a StatLock, Tegaderm, and CHG disc. Verification has been performed for blood return and line patency. Arm Circumference: 28cm Equipment: Bard PowerGlide Midline Catheter Catheter Type: [id number] PowerGlide Midline ST Lot #: [id number]
[2025-08-09] MEDS: Lactated Ringers 1,000 ML 100 ML IVCONT (11:11)
--- NOTE | 2025-08-09 13:50 | P.BOP_ITS ---
Brief Operative Note Date of Service: 08/09/25 Pre-op diagnosis: Right shoulder impingement syndrome, right shoulder acromioclavicular joint arthritis, right shoulder rotator cuff tear Post-op diagnosis: same Procedure: Right shoulder arthroscopic distal clavicle excision, right shoulder arthroscopic acromioplasty, right shoulder mini open rotator cuff repair Implants: One suture anchor (Tuttle [employer] Nephew Twinfix anchor with #2 Ultrabraid suture) Surgeon: Michael Mae MD Anesthesia: GETA and regional Was an Art Therapy Certified Supervisor used for this Procedure?: No Estimated blood loss (mL): 20 Pathology: none sent Condition: stable Disposition: PACU
--- NOTE | 2025-08-09 13:55 | P.OP_ITS ---
Operative Note Operative Note Date of Service: 08/09/25 Narrative: After the patient was identified as Ziggy Manuel and his right shoulder was initialed by myself the patient was brought to the holding area where a right shoulder interscalene regional block was performed by the anesthesiologist in routine fashion. The patient was then brought to the operating room where general anesthesia was induced by the anesthesiologist in routine fashion. The patient was given 2 g of IV Ancef preoperatively for infection prophylaxis. Examination under anesthesia of the patient's right shoulder showed full passive range of motion of the patient's right shoulder when compared to the left. The patient was gently positioned in the beach chair position with all bony prominences well padded. The patient's right shoulder region and upper extremity were prepped and draped in sterile fashion. A formal time-out was completed. A #11 scalpel blade was used to make a posterior portal 2 cm inferior and 1 cm medial to the posterolateral corner of the acromion. Blunt trocar technique was used to enter the glenohumeral joint in routine fashion. An anterior portal was made just lateral to the coracoid process after proper positioning was confirmed using a spinal needle. Diagnostic arthroscopy showed minimal degenerative changes of the glenoid and humeral head articular surfaces. There was a full-thickness tear of the supraspinatus tendon. There was no evidence of injury to the biceps tendon or its insertion onto the glenoid. There was no inflammation of the anterior joint capsule. The arthroscope was then placed from the posterior portal into the subacromial space. A lateral po rtal was made 2 fingerbreadths lateral to the anterior lateral corner of the acromion. The ArthroCare Wand was used to ablate soft tissues along the undersurface of the acromion as well as to excise the coracoacromial ligament. There was a sharp spur along the undersurface of the acromion which was removed using the hooded bur. The arthroscope was then placed into the lateral portal and the acromioplasty was completed with the bur in the posterior portal using the posterior aspect of the acromion as a cutting block. The ArthroCare Wand was then brought in through the anterior portal and was used to ablate soft tissues along the acromioclavicular joint and distal clavicle. The posterior and superior ligamentous structures were left intact. A distal clavicle excision of 8 mm was performed using the hooded bur. Any remaining bursal tissue was removed using the arthroscopic shaver. The subacromial space was irrigated and then drained. All arthroscopic instruments were removed. Sterile gloves were changed and the shoulder was once again prepped with Betadine. A #15 scalpel blade was used to extend the lateral portal to the lateral edge of the acromion. The subacromial tissues were dissected using electrocautery down to the superficial deltoid fascia. The trocar split in the anterior raphe of the deltoid was then extended to the lateral edge of the acromion using electro cautery and curved Handley scissors. Any remaining bursal tissue was removed using curved Handley scissors. Subacromial and subdeltoid adhesions were bluntly dissected. The undersurface of the acromion was palpated and it was smooth. A #2 Ethibond tag suture was placed into the supraspinatus tendon. The tendon was easily mobilized to its insertion point on the glenoid. The wound was irrigated with copious amounts of normal saline solution. One suture anchor was placed into the greater tuberosity in routine fashion. The rotator cuff repair was then performed using horizontal mattress sutures under minimal tension with the patient's elbow at their side. Following the repair the shoulder was taken through a full range of motion. The repair was stable. The wound was irrigated with copious amounts of normal saline solution. The superficial and deep deltoid fascia were closed with #1 Vicryl [id number] interrupted suture. The wound was once again irrigated. The subcutaneous tissues were closed with 2-0 Vicryl interrupted suture. The skin was closed with 3-0 Prolene subcuticular suture and Steri-Strips. The anterior and posterior portals were closed with 3-0 nylon interrupted suture. Dry sterile dressing was placed over all incisions. The patient's right upper extremity was placed into a sling. The patient was awoken and extubated in the operating room. The patient was transferred to the recovery room in stable condition.
== END 2025-08-09 15:34 | disposition home or self-care (01) ==
PROVIDERS: PCP Internal Medicine; Visit Provider Orthopaedic Surgery
PROC: (CPT 23412; principal; 2025-08-09 12:00)
DX: M75.101 Unspecified rotator cuff tear or rupture of right shoulder, not specified as traumatic (principal); M75.41 Impingement syndrome of right shoulder; M19.011 Primary osteoarthritis, right shoulder; M25.511 Pain in right shoulder; M25.311 Other instability, right shoulder; I87.2 Venous insufficiency (chronic) (peripheral); I10 Essential (primary) hypertension; G47.33 Obstructive sleep apnea (adult) (pediatric); F33.0 Major depressive disorder, recurrent, mild; Z87.442 Personal history of urinary calculi; Z79.899 Other long term (current) drug therapy; Z99.89 Dependence on other enabling machines and devices; Z98.890 Other specified postprocedural states; Z87.891 Personal history of nicotine dependence; Z56.0 Unemployment, unspecified
CPT/HCPCS: 23412; 29824; 29826; 36573; C1713; J0131; J0165; J0690; J0696; J1100; J1805; J2003; J2250; J2405; J2704; J2795; J3010

== ENCOUNTER → 2025-08-09 08:08 | Outpatient (BNV) | payer OTHER, SELFPAY | PROVIDERS: PCP Internal Medicine; Visit Provider Orthopaedic Surgery | DX: M75.121 Complete rotator cuff tear or rupture of right shoulder, not specified as traumatic (principal); M75.41 Impingement syndrome of right shoulder; M19.011 Primary osteoarthritis, right shoulder | CPT/HCPCS: 23412; 29824 ==